=== PATIENT | female | born 1960 | race Hispanic/Latino ===

== ENCOUNTER 2017-04-25 19:35 | Emergency (ER) | payer MEDICARE ==
[2017-04-25 20:02] LABS: Basophils % (Auto) 0.2 % (0.0-1.8); Eosinophils % (Auto) 3.3 % (0.0-4.3); Hematocrit 35.8 % (30.3-42.9); Hemoglobin 12.1 gm/dl (10.1-14.3); Mean Corpuscular HGB Conc 34 % (30-34); Mean Corpuscular Hemoglobin 30 pg (28-32); Mean Corpuscular Volume 87 fl (79-97); Platelet Count 326 K/mm3 (140-440); Red Cell Distribution Width 14.7 % (13.2-15.2); White Blood Count 6.6 K/mm3 (4.5-11.0)
[2017-04-25 20:22] LABS: Anion Gap 18 mmol/L; BUN/Creatinine Ratio 27; Blood Urea Nitrogen 19 mg/dL (7-17); Calcium 8.9 mg/dL (8.4-10.2); Carbon Dioxide 23 mmol/L (22-30); Glucose 281 mg/dL (65-100); Potassium 4.2 mmol/L (3.6-5.0); Sodium 139 mmol/L (137-145)
[2017-04-26] MEDS ORDERED: PERCOCET 5/325 PO PRN (07:22)
[2017-04-26] MEDS ORDERED: PERCOCET 5/325 PO ONE (07:24)
--- NOTE | 2017-04-26 08:21 | XRay Report ---
ROUTINE CHEST, TWO VIEWS: HISTORY: Left sided chest pain. The trachea, heart, mediastinal contour, lung metzger and bony thorax are unremarkable. IMPRESSION: Unremarkable chest x-ray. No significant change since 02/28/15.
--- NOTE | 2017-04-26 08:22 | Emergency Department Report ---
ED Dizziness HPI - General Chief Complaint: Chest Pain Stated Complaint: CP Time Seen by Provider: 04/26/17 07:11 Source: patient, EMS, old records reviewed Mode of arrival: Wheelchair Limitations: No Limitations - History of Present Illness Initial Comments: 57-year-old female with a past medical history of COPD, diabetes, asthma, hypertension, schizophrenia, and elevated cholesterol presents to the Hospital complaining of continued left sided chest pain for the past 4 days. Pain is constant and stabbing and moderate in intensity. No aggravating or alleviating factors reported. Patient complains of mild shortness of breath and mild diaphoresis. Denies nausea, vomiting, Numbness, edema, or recent travel. Patient apparently was admitted at [facility] 4 days ago for the same symptoms and reports a negative stress test. Patient comes here because she still has pain and thinks she should be admitted until we found out was wrong with her. Previous medical record here reviewed and patient had a negative stress test here 02/28/2015 multiple other visits to the ED for mental health- related complaints Medical record from [facility] reviewed. Patient admitted on April 21 for nausea, headache with elevated glucose and occasional chest tightness with mild exertion. Endocrinology was consultative optimized insulin regimen. She had a CT head that was unremarkable. She had troponins negative 2, EKG with nonspecific findings not changed from previous studies and had an MPI stress test that was negative for infection and ischemia. - Related Data Home Medications Medication Instructions Recorded Confirmed Last Taken FLUoxetine HCL [PROzac] 40 mg PO QDAY 07/07/15 10/15/15 06/07/15 Gabapentin [Neurontin] 300 mg PO BID 07/07/15 10/15/15 06/07/15 Haloperidol Decanoate [Haldol 100 mg IM QMONTH 07/07/15 10/15/15 06/07/15 Decanoate] Insulin Glargine [Lantus VIAL] 15 units SQ QHS 07/07/15 10/15/15 06/07/15 Insulin Lispro Protamin/Lispro 8 units SQ TID 07/07/15 10/15/15 06/07/15 [HumaLOG Mix 50-50 Kwikpen] Losartan [Cozaar] 60 mg PO BID 07/07/15 10/15/15 06/07/15 Topiramate [Topamax] 200 mg PO BID 07/07/15 10/15/15 06/07/15 hydrOXYzine PAMOATE [Vistaril] 25 mg PO QDAY 07/07/15 10/15/15 06/07/15 Haldol 10 mg PO BID 10/15/15 10/15/15 Unknown Januvia 100 mg PO DAILY 10/15/15 10/15/15 Unknown Lipitor 40 mg PO HS 10/15/15 10/15/15 Unknown Temazepam 15 mg PO HS 10/15/15 10/15/15 Unknown Previous Rx's Medication Instructions Recorded Last Taken Type Ibuprofen [Motrin] 600 mg PO Q8H PRN #30 tablet 04/26/17 Unknown Rx traMADol [Ultram 50 MG tab] 50 mg PO Q6HR PRN #20 tablet 04/26/17 Unknown Rx Allergies Allergy/AdvReac Type Severity Reaction Status Date / Time ciprofloxacin [From Cipro] Allergy Rash Verified 04/25/17 19:43 ciprofloxacin HCl Allergy Rash Verified 04/25/17 19:43 [From Cipro] erythromycin base Allergy Rash Verified 04/25/17 19:43 [Erythromycin Base] lithium [Eyota] Allergy Headache Verified 04/25/17 19:43 nitrofurantoin Allergy Hives Verified 04/25/17 19:43 macrocrystalline [From Macrodantin] sulfamethoxazole Allergy Hives Verified 04/25/17 19:43 [From Bactrim] trimethoprim [From Bactrim] Allergy Hives Verified 04/25/17 19:43 orange juice AdvReac MOUTH SORES Verified 04/25/17 19:43 pineapple AdvReac MOUTH SORES Verified 04/25/17 19:43 mushrooms Allergy Swelling Uncoded 07/06/15 23:47 ED Review of Systems ROS: Stated complaint: CP Other details as noted in HPI Comment: All other systems reviewed and negative Other: Constitutional: No fevers chills Eyes: No eye pain visual changes ENT: No ear pain or throat pain Neck: Denies pain Respiratory: Denies cough wheezing Cardiovascular: Denies palpitations, syncope GI: Denies abdominal pain, nausea, vomiting, diarrhea : Denies dysuria Musculoskeletal: Denies back pain, joint swelling Skin: Denies rash, lesions, erythema Neurologic: Denies headache, numbness, weakness Psychiatric: Denies suicidal ideation, hallucinations ED Past Medical Hx - Past Medical History Hx Hypertension: Yes Hx Diabetes: Yes Hx Psychiatric Treatment: Yes ([place], [place], etc.) Hx Asthma: Yes Hx COPD: Yes Additional medical history: HIGH CHOLESTEROL, paranoid schizophrenia, PTSD, psychosis. SLEEP APNEA - Surgical History Hx Cholecystectomy: Yes Hx Appendectomy: Yes Additional Surgical History: HYSTERECTOMY, knee surgery,TONSILLECTOMY - Social History Smoking Status: Never Smoker Substance Use Type: None - Medications Home Medications: Home Medications Medication Instructions Recorded Confirmed Last Taken Type FLUoxetine HCL [PROzac] 40 mg PO QDAY 07/07/15 10/15/15 06/07/15 History Gabapentin [Neurontin] 300 mg PO BID 07/07/15 10/15/15 06/07/15 History Haloperidol Decanoate [Haldol 100 mg IM QMONTH 07/07/15 10/15/15 06/07/15 History Decanoate] Insulin Glargine [Lantus VIAL] 15 units SQ QHS 07/07/15 10/15/15 06/07/15 History Insulin Lispro Protamin/Lispro 8 units SQ TID 07/07/15 10/15/15 06/07/15 History [HumaLOG Mix 50-50 Kwikpen] Losartan [Cozaar] 60 mg PO BID 07/07/15 10/15/15 06/07/15 History Topiramate [Topamax] 200 mg PO BID 07/07/15 10/15/15 06/07/15 History hydrOXYzine PAMOATE [Vistaril] 25 mg PO QDAY 07/07/15 10/15/15 06/07/15 History Haldol 10 mg PO BID 10/15/15 10/15/15 Unknown History Januvia 100 mg PO DAILY 10/15/15 10/15/15 Unknown History Lipitor 40 mg PO HS 10/15/15 10/15/15 Unknown History Temazepam 15 mg PO HS 10/15/15 10/15/15 Unknown History Ibuprofen [Motrin] 600 mg PO Q8H PRN #30 tablet 04/26/17 Unknown Rx traMADol [Ultram 50 MG tab] 50 mg PO Q6HR PRN #20 tablet 04/26/17 Unknown Rx ED Physical Exam - General Limitations: No Limitations - Other Other exam information: General: No limitations, patient is alert in no acute distress Head exam: Atraumatic, normocephalic Eyes exam: Normal appearance ENT: Moist mucous membrane, normal oropharynx Neck exam: Normal inspection, full range of motion, no meningismus nontender Respiratory exam: Clear to auscultation bilateral, no wheezes, rales, crackles Cardiovascular: Normal rate and rhythm, normal heart sounds. Mild left-sided chest wall tenderness Abdomen: Soft, nondistended, and nontender, with normal bowel sounds, no rebound, or guarding Extremity: Full range of motion normal inspection no deformity, no calf tenderness or edema Back: Normal Inspection, full range of motion, no tenderness Neurologic: Alert, oriented x3, cranial nerves intact, no motor or sensory deficit Psychiatric: normal affect, normal mood Skin: Warm, dry, intact ED Course Vital Signs 04/25/17 04/26/17 04/26/17 19:43 01:48 06:00 Temperature 98.0 F 98.4 F Pulse Rate 70 65 58 L Respiratory 18 14 12 Rate Blood Pressure 132/90 103/59 111/65 Blood Pressure [Left] O2 Sat by Pulse 97 96 100 Oximetry 04/26/17 04/26/17 06:02 07:53 Temperature 97.7 F Pulse Rate 55 L Respiratory 15 16 Rate Blood Pressure Blood Pressure 114/60 [Left] O2 Sat by Pulse 99 Oximetry ED Medical Decision Making - Lab Data Result diagrams: 04/25/17 19:50 04/25/17 19:50 Lab Results 04/25/17 04/25/17 04/25/17 Range/Units 19:50 19:50 23:04 WBC 6.6 (4.5-11.0) K/mm3 RBC 4.10 (3.65-5.03) M/mm3 Hgb 12.1 (10.1-14.3) gm/dl Hct 35.8 (30.3-42.9) % MCV 87 (79-97) fl MCH 30 (28-32) pg MCHC 34 (30-34) % RDW 14.7 (13.2-15.2) % Plt Count 326 (140-440) K/mm3 Lymph % (Auto) 48.4 H (13.4-35.0) % [place] % (Auto) 6.4 (0.0-7.3) % Eos % (Auto) 3.3 (0.0-4.3) % Baso % (Auto) 0.2 (0.0-1.8) % Lymph # 3.2 (1.2-5.4) K/mm3 [place] # 0.4 (0.0-0.8) K/mm3 Eos # 0.2 (0.0-0.4) K/mm3 Baso # 0.0 (0.0-0.1) K/mm3 Seg Neutrophils % 41.7 (40.0-70.0) % Seg Neutrophils # 2.8 (1.8-7.7) K/mm3 D-Dimer (0-234) ng/mlDDU Sodium 139 (137-145) mmol/L Potassium 4.2 (3.6-5.0) mmol/L Chloride 102.0 (98-107) mmol/L Carbon Dioxide 23 (22-30) mmol/L Anion Gap 18 mmol/L BUN 19 H (7-17) mg/dL Creatinine 0.7 (0.7-1.2) mg/dL Estimated GFR > 60 ml/min BUN/Creatinine Ratio 27 % Glucose 281 H (65-100) mg/dL Calcium 8.9 (8.4-10.2) mg/dL Troponin T < 0.010 < 0.010 (0.00-0.029) ng/mL 04/26/17 04/26/17 Range/Units 01:52 07:31 WBC (4.5-11.0) K/mm3 RBC (3.65-5.03) M/mm3 Hgb (10.1-14.3) gm/dl Hct (30.3-42.9) % MCV (79-97) fl MCH (28-32) pg MCHC (30-34) % RDW (13.2-15.2) % Plt Count (140-440) K/mm3 Lymph % (Auto) (13.4-35.0) % [place] % (Auto) (0.0-7.3) % Eos % (Auto) (0.0-4.3) % Baso % (Auto) (0.0-1.8) % Lymph # (1.2-5.4) K/mm3 [place] # (0.0-0.8) K/mm3 Eos # (0.0-0.4) K/mm3 Baso # (0.0-0.1) K/mm3 Seg Neutrophils % (40.0-70.0) % Seg Neutrophils # (1.8-7.7) K/mm3 D-Dimer < 135.0 (0-234) ng/mlDDU Sodium (137-145) mmol/L Potassium (3.6-5.0) mmol/L Chloride (98-107) mmol/L Carbon Dioxide (22-30) mmol/L Anion Gap mmol/L BUN (7-17) mg/dL Creatinine (0.7-1.2) mg/dL Estimated GFR ml/min BUN/Creatinine Ratio % Glucose (65-100) mg/dL Calcium (8.4-10.2) mg/dL Troponin T < 0.010 (0.00-0.029) ng/mL - EKG Data -: EKG Interpreted by [facility] EKG shows normal: sinus rhythm, axis (4), QRS complexes (87), ST-T waves (no stemi/t inv) Rate: normal (61) - EKG Data When compared to previous EKG there are: no significant change 04/26/17 08:22 The patient had 2 repeat EKGs are unchanged and without acute abnormalities - Radiology Data Radiology results: report reviewed Chest x-ray read by radiologist: No acute finding - Medical Decision Making Patient will be discharged home. Troponins negative 3. EKG unchanged from previous. Her pain is atypical. Patient had a negative stress test this week. D-dimer negative and chest x-ray unremarkable. She will be treated symptomatically for muscle skeletal pain - Differential Diagnosis NH, PE, costochondritis, atypical chest pain Critical Care Time: No Critical care attestation.: If time is entered above; I have spent that time in minutes in the direct care of this critically ill patient, excluding procedure time. ED Disposition Clinical Impression: Atypical chest pain, Diabetes Disposition: DC-01 TO HOME OR SELFCARE Is pt being admited?: No Does the pt Need Aspirin: No Condition: Stable Instructions: Diabetes Mellitus Type 2 in Adults (ED), Chest Pain (ED) Additional Instructions: Take the the medication as prescribed. Return if symptoms worsen. Follow up with your doctor for further management Prescriptions: Ibuprofen [Motrin] 600 mg PO Q8H PRN #30 tablet PRN Reason: Pain traMADol [Ultram 50 MG tab] 50 mg PO Q6HR PRN #20 tablet PRN Reason: Pain Referrals: ZHEN ARCHIBALD MD [Primary Care Provider] - 3-5 Days Time of Disposition: 09:02
[2017-04-26 11:05] VITALS: BP 130/73
== END 2017-04-26 09:41 | disposition home or self-care (01) ==
LOC: ED 19:35
DX: R07.89 Other chest pain (principal); E11.9 Type 2 diabetes mellitus without complications; I10 Essential (primary) hypertension; J44.9 Chronic obstructive pulmonary disease, unspecified; E78.00 Pure hypercholesterolemia, unspecified; F20.0 Paranoid schizophrenia; F43.10 Post-traumatic stress disorder, unspecified; Z90.49 Acquired absence of other specified parts of digestive tract; Z90.89 Acquired absence of other organs; Z90.710 Acquired absence of both cervix and uterus; Z88.1 Allergy status to other antibiotic agents; Z88.8 Allergy status to other drugs, medicaments and biological substances
CPT/HCPCS: 36415; 71020; 80048; 84484; 85025; 85379; 93005; 93010

== ENCOUNTER 2017-09-19 11:02 | Emergency (ER) | payer MEDICARE ==
[2017-09-19 11:46] VITALS: BP 128/65
--- NOTE | 2017-09-19 12:09 | XRay Report ---
ROUTINE CHEST, TWO VIEWS: HISTORY: Cough. The trachea, heart, mediastinal contour, lung metzger and bony thorax are unremarkable. No change since 04/26/17. IMPRESSION: Unremarkable chest x-ray.
--- NOTE | 2017-09-19 12:58 | Emergency Department Report ---
Minor Respiratory - HPI Chief Complaint: Upper Respiratory Infection Stated Complaint: POSS BRONCHITIS Time Seen by Provider: 09/19/17 12:36 Duration: 4 Days Pain Location: Chest Severity: moderate Minor Respiratory: Yes Able to Tolerate Fluids, Yes Cough (patient has a deep cough that is productive of yellow sputum), Yes Chest Pain, No Rhinorrhea, No Sore Throat, No Ear Pain, No Sick Contacts, No Hemoptysis, No Shortness of Breath, No Fever ED Review of Systems ROS: Stated complaint: POSS BRONCHITIS Other details as noted in HPI Comment: All other systems reviewed and negative ED Past Medical Hx - Past Medical History Hx Hypertension: Yes Hx Diabetes: Yes Hx Psychiatric Treatment: Yes ([place], [place], etc.) Hx Asthma: Yes Hx COPD: Yes Additional medical history: HIGH CHOLESTEROL, paranoid schizophrenia, PTSD, psychosis. SLEEP APNEA - Surgical History Hx Cholecystectomy: Yes Hx Appendectomy: Yes Additional Surgical History: HYSTERECTOMY, knee surgery,TONSILLECTOMY - Social History Smoking Status: Never Smoker Substance Use Type: None - Medications Home Medications: Home Medications Medication Instructions Recorded Confirmed Last Taken Type FLUoxetine HCL [PROzac] 40 mg PO QDAY 07/07/15 10/15/15 06/07/15 History Gabapentin [Neurontin] 300 mg PO BID 07/07/15 10/15/15 06/07/15 History Haloperidol Decanoate [Haldol 100 mg IM QMONTH 07/07/15 10/15/15 06/07/15 History Decanoate] Insulin Glargine [Lantus VIAL] 15 units SQ QHS 07/07/15 10/15/15 06/07/15 History Insulin Lispro Protamin/Lispro 8 units SQ TID 07/07/15 10/15/15 06/07/15 History [HumaLOG Mix 50-50 Kwikpen] Losartan [Cozaar] 60 mg PO BID 07/07/15 10/15/15 06/07/15 History Topiramate [Topamax] 200 mg PO BID 07/07/15 10/15/15 06/07/15 History hydrOXYzine PAMOATE [Vistaril] 25 mg PO QDAY 07/07/15 10/15/15 06/07/15 History Haldol 10 mg PO BID 10/15/15 10/15/15 Unknown History Januvia 100 mg PO DAILY 10/15/15 10/15/15 Unknown History Lipitor 40 mg PO HS 10/15/15 10/15/15 Unknown History Temazepam 15 mg PO HS 10/15/15 10/15/15 Unknown History Ibuprofen [Motrin] 600 mg PO Q8H PRN #30 tablet 04/26/17 Unknown Rx traMADol [Ultram 50 MG tab] 50 mg PO Q6HR PRN #20 tablet 04/26/17 Unknown Rx ALBUTEROL Inhaler [ProAir HFA 2 puff IH QID PRN #1 inhalation 09/19/17 Unknown Rx Inhaler] Azithromycin [Zithromax Z-TIFFANIE] 250 mg PO DAILY #6 tablet 09/19/17 Unknown Rx Benzonatate [Tessalon Perle] 100 mg PO TID #12 capsule 09/19/17 Unknown Rx HYDROcodone/APAP 5-325 [[place] 1 each PO Q4HR PRN #12 tablet 09/19/17 Unknown Rx 5/325] Minor Respiratory Exam - Exam General: Vital signs noted. No distress. Alert and acting appropriately. HEENT: Yes Moist Mucous Membranes, No Pharyngeal Erythema, No Pharyngeal Exudates, No Rhinorrhea, No Conjuctival Injection, No Frontal Tenderness, No Maxillary Tenderness Ear: Neither TM Bulge, Neither TM Erythema, Neither EAC Pain, Neither EAC Discharge Neck: Yes Supple, No Adenopathy Lungs: Yes Good Air Exchange, Yes Cough, No Wheezes, No Ronchi, No Stridor, No Labored Respirations, No Retractions, No Use of Accessory Muscles, No Other Abnormal Lung Sounds Heart: Yes Regular, No Murmur Abdomen: Yes Normal Bowel Sounds, No Tenderness, No Peritoneal Signs Skin: No Rash, No Edema Neurologic: Alert and oriented, no deficits. Musculoskeletal: Unremarkable. ED Course Vital Signs 09/19/17 11:42 Temperature 98.3 F Pulse Rate 90 Respiratory 16 Rate Blood Pressure 128/65 O2 Sat by Pulse 95 Oximetry ED Medical Decision Making - Radiology Data Chest x-ray is within normal limits Critical care attestation.: If time is entered above; I have spent that time in minutes in the direct care of this critically ill patient, excluding procedure time. ED Disposition Clinical Impression: Acute bronchitis Qualifiers: Bronchitis organism: unspecified organism Qualified Code(s): J20.9 - Acute bronchitis, unspecified Disposition: DC-01 TO HOME OR SELFCARE Is pt being admited?: No Does the pt Need Aspirin: No Condition: Stable Instructions: Acute Bronchitis (ED) Prescriptions: ALBUTEROL Inhaler [ProAir HFA Inhaler] 2 puff IH QID PRN #1 inhalation PRN Reason: Shortness Of Breath Azithromycin [Zithromax Z-TIFFANIE] 250 mg PO DAILY #6 tablet Benzonatate [Tessalon Perle] 100 mg PO TID #12 capsule HYDROcodone/APAP 5-325 [[place] 5/325] 1 each PO Q4HR PRN #12 tablet PRN Reason: Pain Referrals: PRIMARY CARE, [Primary Care Provider] - 3-5 Days
== END 2017-09-19 13:03 | disposition home or self-care (01) ==
LOC: ED 11:02
DX: J20.9 Acute bronchitis, unspecified (principal); J44.0 Chronic obstructive pulmonary disease with (acute) lower respiratory infection; I10 Essential (primary) hypertension; E11.9 Type 2 diabetes mellitus without complications; F20.0 Paranoid schizophrenia; F43.10 Post-traumatic stress disorder, unspecified; E78.00 Pure hypercholesterolemia, unspecified; Z90.49 Acquired absence of other specified parts of digestive tract; Z90.89 Acquired absence of other organs; Z90.710 Acquired absence of both cervix and uterus; Z79.899 Other long term (current) drug therapy; Z88.8 Allergy status to other drugs, medicaments and biological substances
CPT/HCPCS: 71046

== ENCOUNTER 2017-11-30 09:52 | Emergency (ER) | payer MEDICARE ==
--- NOTE | 2017-11-30 10:30 | Emergency Department Report ---
HPI - General Chief Complaint: Fall Time Seen by Provider: 11/30/17 10:06 - HPI HPI: 57-year-old female presents to the emergency department via EMS from home after she fell, hit her head, and got knocked out. Patient says that she was leaning over to try and clean up serial floor when she fell backwards. She says that she did lose consciousness and that her roommate found her and called EMS. She complains of a headache, neck pain, left ankle pain and right hip pain. She has a history of diabetes and was found to have a blood sugar of 370 in the ambulance. She did not take anything and did not receive anything for her symptoms prior to presentation. Patient has a psychiatric history of bipolar disorder and depression. She denies having a primary care physician. ED Past Medical Hx - Past Medical History Hx Hypertension: Yes Hx Diabetes: Yes Hx Psychiatric Treatment: Yes ([place], [place], etc.) Hx Asthma: Yes Hx COPD: Yes Additional medical history: HIGH CHOLESTEROL, paranoid schizophrenia, PTSD, psychosis. SLEEP APNEA - Surgical History Hx Cholecystectomy: Yes Hx Appendectomy: Yes Additional Surgical History: HYSTERECTOMY, knee surgery,TONSILLECTOMY - Social History Smoking Status: Never Smoker Substance Use Type: None - Medications Home Medications: Home Medications Medication Instructions Recorded Confirmed Last Taken Type FLUoxetine HCL [PROzac] 40 mg PO QDAY 07/07/15 10/15/15 06/07/15 History Gabapentin [Neurontin] 300 mg PO BID 07/07/15 10/15/15 06/07/15 History Haloperidol Decanoate [Haldol 100 mg IM QMONTH 07/07/15 10/15/15 06/07/15 History Decanoate] Insulin Glargine [Lantus VIAL] 15 units SQ QHS 07/07/15 10/15/15 06/07/15 History Insulin Lispro Protamin/Lispro 8 units SQ TID 07/07/15 10/15/15 06/07/15 History [HumaLOG Mix 50-50 Kwikpen] Losartan [Cozaar] 60 mg PO BID 07/07/15 10/15/15 06/07/15 History Topiramate [Topamax] 200 mg PO BID 07/07/15 10/15/15 06/07/15 History hydrOXYzine PAMOATE [Vistaril] 25 mg PO QDAY 07/07/15 10/15/15 06/07/15 History Haldol 10 mg PO BID 10/15/15 10/15/15 Unknown History Januvia 100 mg PO DAILY 10/15/15 10/15/15 Unknown History Lipitor 40 mg PO HS 10/15/15 10/15/15 Unknown History Temazepam 15 mg PO HS 10/15/15 10/15/15 Unknown History Ibuprofen [Motrin] 600 mg PO Q8H PRN #30 tablet 04/26/17 Unknown Rx traMADol [Ultram 50 MG tab] 50 mg PO Q6HR PRN #20 tablet 04/26/17 Unknown Rx ALBUTEROL Inhaler [ProAir HFA 2 puff IH QID PRN #1 inhalation 09/19/17 Unknown Rx Inhaler] Azithromycin [Zithromax Z-TIFFANIE] 250 mg PO DAILY #6 tablet 09/19/17 Unknown Rx Benzonatate [Tessalon Perle] 100 mg PO TID #12 capsule 09/19/17 Unknown Rx HYDROcodone/APAP 5-325 [[place] 1 each PO Q4HR PRN #12 tablet 09/19/17 Unknown Rx 5/325] ED Review of Systems ROS: Stated complaint: RIGHT HIP/ LEFT ANKLE INJURY Other details as noted in HPI Comment: All other systems reviewed and negative Constitutional: denies: chills, fever Eyes: denies: eye pain, eye discharge, vision change ENT: denies: ear pain, throat pain Respiratory: denies: cough, shortness of breath, wheezing Cardiovascular: denies: chest pain, palpitations Gastrointestinal: denies: abdominal pain, nausea, diarrhea Genitourinary: denies: urgency, dysuria, discharge Musculoskeletal: arthralgia, myalgia. denies: back pain Skin: denies: rash, lesions Neurological: headache. denies: numbness Physical Exam - Physical Exam Vital Signs: Vital Signs 11/30/17 10:09 Temperature 98.4 F Pulse Rate 74 Respiratory 16 Rate Blood Pressure 128/80 O2 Sat by Pulse 98 Oximetry ED Course Vital Signs 11/30/17 10:09 Temperature 98.4 F Pulse Rate 74 Respiratory 16 Rate Blood Pressure 128/80 O2 Sat by Pulse 98 Oximetry ED Medical Decision Making - Lab Data Result diagrams: 11/30/17 10:36 11/30/17 10:36 - EKG Data -: EKG Interpreted by Me EKG shows normal: sinus rhythm, axis, intervals, QRS complexes, ST-T waves Rate: normal - EKG Data When compared to previous EKG there are: previous EKG unavailable Interpretation: normal EKG Critical care attestation.: If time is entered above; I have spent that time in minutes in the direct care of this critically ill patient, excluding procedure time. ED Disposition Clinical Impression: Hyperglycemia without ketosis, Right hip pain, Hypokalemia Fall Qualifiers: Encounter type: initial encounter Qualified Code(s): W19.XXXA - Unspecified fall, initial encounter Left ankle pain Qualifiers: Chronicity: acute Qualified Code(s): M25.572 - Pain in left ankle and joints of left foot Disposition: TO HOME OR SELFCARE Is pt being admited?: No Condition: Stable Instructions: Arthralgia (ED), Fall Prevention (ED), Hypokalemia (ED), Diabetic Hyperglycemia (ED) Additional Instructions: Please follow up with a primary care physician in the next few days and I have given you multiple names as referrals. I have also given you a referral for a local orthopedist, Dr. Childress, to follow up regarding your ankle and hip pains. Return to the emergency Department with any worsening of your symptoms or any acute distress. Check her blood sugar regularly. Take your diabetes medications. Try and stay away from foods that are high in sugar, carbohydrates and starches. Keep a blood sugar log. Referrals: PRIMARY CAREMD [Primary Care Provider] - 3-5 Days YFN CHILDRESS MD [Staff Physician] - 3-5 Days ENRIQUE ARAGON MD [Staff Physician] - 3-5 Days MARIYA HORNE MD [Staff Physician] - 3-5 Days [facility] [Outside] - 3-5 Days Time of Disposition: 13:36
[2017-11-30 10:50] LABS: Basophils % (Auto) 0.3 % (0.0-1.8); Eosinophils # (Auto) 0.1 K/mm3 (0.0-0.4); Eosinophils % (Auto) 1.8 % (0.0-4.3); Hematocrit 40.4 % (30.3-42.9); Hemoglobin 13.7 gm/dl (10.1-14.3); Lymphocytes # (Auto) 2.1 K/mm3 (1.2-5.4); Lymphocytes % (Auto) 32.1 % (13.4-35.0); Mean Corpuscular HGB Conc 34 % (30-34); Mean Corpuscular Hemoglobin 30 pg (28-32); Mean Corpuscular Volume 89 fl (79-97); Monocytes # (Auto) 0.4 K/mm3 (0.0-0.8); Monocytes % (Auto) 5.9 % (0.0-7.3); Platelet Count 266 K/mm3 (140-440); Red Blood Count 4.55 M/mm3 (3.65-5.03); Red Cell Distribution Width 13.9 % (13.2-15.2)
[2017-11-30 11:09] LABS: BUN/Creatinine Ratio 37; Blood Urea Nitrogen 22 mg/dL (7-17); Calcium 9.3 mg/dL (8.4-10.2); Hemolysis Index 10
--- NOTE | 2017-11-30 11:17 | XRay Report ---
LEFT ANKLE RADIOGRAPHS INDICATION: Fall. COMPARISON: None similar. FINDINGS: AP, lateral and oblique left ankle radiographs demonstrate intact mortise, malleoli and talar dome contour. Mild to moderate degenerative changes, including spurring both anteriorly and posteriorly best noted on the lateral view. Small to moderate plantar calcaneal spur as well. Mild diffuse ankle soft tissue swelling suspected, medial more than lateral. CONCLUSION: Left ankle degenerative changes and possible soft tissue swelling without acute bony abnormality, as described. Please correlate. Thank you for the opportunity to participate in this patient's care.
--- NOTE | 2017-11-30 11:18 | XRay Report ---
PORTABLE CHEST INDICATION: Fall. COMPARISON: 09/19/2017 FINDINGS: Portable, frontal chest radiograph again demonstrates normal cardiomediastinal silhouette. Clear lungs. Few bony degenerative changes. CONCLUSION: No acute disease, stable. Thank you for the opportunity to participate in this patient's care.
--- NOTE | 2017-11-30 11:20 | XRay Report ---
RIGHT HIP RADIOGRAPHS INDICATION: Fall. COMPARISON: None similar. FINDINGS: An AP pelvic radiograph with frog-leg projection of the right hip demonstrate intact articulation. Frontal view partly rotated. Imaged bilateral SI and hip joints appear intact. Nonobstructive bowel gas pattern with few air containing small bowel loops in the left lower quadrant measuring up to 1.7 cm caliber. CONCLUSION: No acute right hip radiographic abnormality. Thank you for the opportunity to participate in this patient's care.
[2017-11-30] MEDS ORDERED: K-DUR PO NR (11:24)
[2017-11-30] MEDS ORDERED: NACL 0.9% 1000 ML 1,000 ML IV ONE (11:28)
[2017-11-30] MEDS ORDERED: HumuLIN R IV ONE (11:28)
--- NOTE | 2017-11-30 11:51 | Cat Scan Report ---
CT HEAD WITHOUT CONTRAST INDICATION: Fall. COMPARISON: 07/21/2014. FINDINGS: Noncontrast head CT demonstrates normal ventricles and sulci without acute or recent infarct, hemorrhage, mass effect or midline shift. No abnormal extra-axial fluid collections. Posterior fossa structures and basilar cisterns appear within normal limits. Symmetric eye globes. Mild right maxillary sinus mucosal thickening laterally partially imaged. Slight ethmoid sinusitis. Hypoplastic bilateral frontal sinuses. Clear remainder imaged paranasal sinuses and mastoid air cells. Rightward nasal septal bowing again noted. Hyperostosis frontalis interna. Small radiopaque dental fillings. CONCLUSION: No acute intracranial CT abnormality with slight sinusitis, as described. Thank you for the opportunity to participate in this patient's care.
--- NOTE | 2017-11-30 12:09 | Cat Scan Report ---
CT CERVICAL SPINE WITHOUT CONTRAST INDICATION: Fall. COMPARISON: None similar. FINDINGS: Noncontrast axial, sagittal and coronal CT reconstructions through the cervical spine demonstrate right more than left maxillary sinus mucosal thickening inferiorly. Some dental disease/periapical cysts. Few radiopaque dental materials create streak artifact, limiting exam. Assessment of spinal canal itself also compromised from C5 inferiorly due to low shoulder soft tissues. Intact craniocervical articulation, dens, prevertebral soft tissues and airway. Normal vertebral body stature. Some tilt noted, presumed positional. Mild C6-C7 disc narrowing and mild spurring. No large disc herniation or cord compression though suspected. Preserved airway. Normal thyroid. Asymmetric slight right upper lobe haziness/groundglass on axial image 85, series 2, amongst others. CONCLUSION: No acute cervical spine CT abnormality with mild lower cervical degenerative changes, sinusitis and dental disease incidentally noted, as described. Please correlate. Thank you for the opportunity to participate in this patient's care.
[2017-11-30 14:14] VITALS: BP 131/74
== END 2017-11-30 14:14 | disposition home or self-care (01) ==
LOC: ED 09:52
DX: E87.6 Hypokalemia (principal); E11.65 Type 2 diabetes mellitus with hyperglycemia; R51 Headache; M54.2 Cervicalgia; M25.572 Pain in left ankle and joints of left foot; M25.551 Pain in right hip; I10 Essential (primary) hypertension; J44.9 Chronic obstructive pulmonary disease, unspecified; E78.00 Pure hypercholesterolemia, unspecified; F43.10 Post-traumatic stress disorder, unspecified; F20.0 Paranoid schizophrenia; Z90.710 Acquired absence of both cervix and uterus; Z90.49 Acquired absence of other specified parts of digestive tract; Z90.89 Acquired absence of other organs; Z98.890 Other specified postprocedural states; Z79.899 Other long term (current) drug therapy; Z88.1 Allergy status to other antibiotic agents; Z88.2 Allergy status to sulfonamides; Z88.8 Allergy status to other drugs, medicaments and biological substances; W19.XXXA Unspecified fall, initial encounter; X58.XXXA Exposure to other specified factors, initial encounter; Y93.E5 Activity, floor mopping and cleaning; Y99.8 Other external cause status; Y92.019 Unspecified place in single-family (private) house as the place of occurrence of the external cause
CPT/HCPCS: 36415; 70450; 71045; 72125; 73502; 73610; 80048; 82550; 82805; 82962; 84484; 85025; 93005; 93010; 96361; 96374; 99285; G0480; J7030; 80320; J1815

== ENCOUNTER 2018-05-16 01:49 | Emergency (ER) | payer MEDICARE ==
[2018-05-16 01:59] VITALS: BP 132/76
[2018-05-16] MEDS ORDERED: HumuLIN R IV ONE (02:21)
[2018-05-16] MEDS ORDERED: NACL 0.9% 1000 ML 1,000 ML IV ONE (02:21)
[2018-05-16] MEDS ORDERED: ZOFRAN IV ONE (02:21)
--- NOTE | 2018-05-16 02:24 | Emergency Department Report ---
ED General Adult HPI - General Chief complaint: Hyperglycemia Stated complaint: HIGH BLOOD GLUCOSE Time Seen by Provider: 05/16/18 02:17 Source: patient Mode of arrival: Ambulatory Limitations: No Limitations - History of Present Illness Initial comments: Patient is 58-year-old female with history of diabetes type 2. Patient presented to the ER stating that she is been having trouble controlling her blood sugar. She also stated that she is being going to the bathroom a lot and she is nauseated also. Patient stated that she saw her primary care physician today and he is planning to take histamine and try Glucophage and glipizide. Patient denied any chest pain, shortness of breath, abdominal present, diarrhea, weakness numbness or tingling sensation. - Related Data Home Medications Medication Instructions Recorded Confirmed Last Taken FLUoxetine HCL [PROzac] 40 mg PO QDAY 07/07/15 10/15/15 06/07/15 Gabapentin [Neurontin] 300 mg PO BID 07/07/15 10/15/15 06/07/15 Haloperidol Decanoate [Haldol 100 mg IM QMONTH 07/07/15 10/15/15 06/07/15 Decanoate] Insulin Glargine [Lantus VIAL] 15 units SQ QHS 07/07/15 10/15/15 06/07/15 Insulin Lispro Protamin/Lispro 8 units SQ TID 07/07/15 10/15/15 06/07/15 [HumaLOG Mix 50-50 Kwikpen] Losartan [Cozaar] 60 mg PO BID 07/07/15 10/15/15 06/07/15 Topiramate [Topamax] 200 mg PO BID 07/07/15 10/15/15 06/07/15 hydrOXYzine PAMOATE [Vistaril] 25 mg PO QDAY 07/07/15 10/15/15 06/07/15 Haldol 10 mg PO BID 10/15/15 10/15/15 Unknown Januvia 100 mg PO DAILY 10/15/15 10/15/15 Unknown Lipitor 40 mg PO HS 10/15/15 10/15/15 Unknown Temazepam 15 mg PO HS 10/15/15 10/15/15 Unknown Previous Rx's Medication Instructions Recorded Last Taken Type Ibuprofen [Motrin] 600 mg PO Q8H PRN #30 tablet 04/26/17 Unknown Rx traMADol [Ultram 50 MG tab] 50 mg PO Q6HR PRN #20 tablet 04/26/17 Unknown Rx ALBUTEROL Inhaler (OR & NICU) 2 puff IH QID PRN #1 inhalation 09/19/17 Unknown Rx [ProAir HFA Inhaler] Azithromycin [Zithromax Z-TIFFANIE] 250 mg PO DAILY #6 tablet 09/19/17 Unknown Rx Benzonatate [Tessalon Perle] 100 mg PO TID #12 capsule 09/19/17 Unknown Rx HYDROcodone/APAP 5-325 [[place] 1 each PO Q4HR PRN #12 tablet 09/19/17 Unknown Rx 5/325] Ondansetron [Zofran Odt] 4 mg PO Q8HR PRN #14 tab.rapdis 05/16/18 Unknown Rx cephALEXin [Keflex] 500 mg PO Q8HR #28 cap 05/16/18 Unknown Rx Allergies Allergy/AdvReac Type Severity Reaction Status Date / Time ciprofloxacin HCl Allergy Rash Verified 09/19/17 11:42 [From Cipro] erythromycin base Allergy Rash Verified 09/19/17 11:42 [Erythromycin Base] lithium [Delta] Allergy Headache Verified 09/19/17 11:42 nitrofurantoin Allergy Hives Verified 09/19/17 11:42 macrocrystalline [From Macrodantin] sulfamethoxazole Allergy Hives Verified 09/19/17 11:42 [From Bactrim] trimethoprim [From Bactrim] Allergy Hives Verified 09/19/17 11:42 orange juice AdvReac MOUTH SORES Verified 09/19/17 11:42 pineapple AdvReac MOUTH SORES Verified 09/19/17 11:42 mushrooms Allergy Swelling Uncoded 09/19/17 11:42 ED Review of Systems ROS: Stated complaint: HIGH BLOOD GLUCOSE Other details as noted in HPI Comment: All other systems reviewed and negative Constitutional: denies: chills, fever Respiratory: denies: cough, orthopnea, shortness of breath, SOB with exertion, SOB at rest, wheezing Cardiovascular: denies: chest pain, palpitations, dyspnea on exertion Endocrine: increased thirst, increased urine Gastrointestinal: nausea. denies: abdominal pain, vomiting, diarrhea, constipat ion, hematemesis, melena, hematochezia Musculoskeletal: denies: back pain Neurological: denies: headache, weakness, numbness, paresthesias, confusion, abnormal gait ED Past Medical Hx - Past Medical History Previous Medical History?: Yes Hx Hypertension: Yes Hx Diabetes: Yes Hx Psychiatric Treatment: Yes ([place], [place], etc.) Hx Asthma: Yes Hx COPD: Yes Additional medical history: HIGH CHOLESTEROL, paranoid schizophrenia, PTSD, psychosis. SLEEP APNEA - Surgical History Past Surgical History?: Yes Hx Cholecystectomy: Yes Hx Appendectomy: Yes Additional Surgical History: HYSTERECTOMY, knee surgery,TONSILLECTOMY - Social History Smoking Status: Never Smoker Substance Use Type: None - Medications Home Medications: Home Medications Medication Instructions Recorded Confirmed Last Taken Type FLUoxetine HCL [PROzac] 40 mg PO QDAY 07/07/15 10/15/15 06/07/15 History Gabapentin [Neurontin] 300 mg PO BID 07/07/15 10/15/15 06/07/15 History Haloperidol Decanoate [Haldol 100 mg IM QMONTH 07/07/15 10/15/15 06/07/15 History Decanoate] Insulin Glargine [Lantus VIAL] 15 units SQ QHS 07/07/15 10/15/15 06/07/15 History Insulin Lispro Protamin/Lispro 8 units SQ TID 07/07/15 10/15/15 06/07/15 History [HumaLOG Mix 50-50 Kwikpen] Losartan [Cozaar] 60 mg PO BID 07/07/15 10/15/15 06/07/15 History Topiramate [Topamax] 200 mg PO BID 07/07/15 10/15/15 06/07/15 History hydrOXYzine PAMOATE [Vistaril] 25 mg PO QDAY 07/07/15 10/15/15 06/07/15 History Haldol 10 mg PO BID 10/15/15 10/15/15 Unknown History Januvia 100 mg PO DAILY 10/15/15 10/15/15 Unknown History Lipitor 40 mg PO HS 10/15/15 10/15/15 Unknown History Temazepam 15 mg PO HS 10/15/15 10/15/15 Unknown History Ibuprofen [Motrin] 600 mg PO Q8H PRN #30 tablet 04/26/17 Unknown Rx traMADol [Ultram 50 MG tab] 50 mg PO Q6HR PRN #20 tablet 04/26/17 Unknown Rx ALBUTEROL Inhaler (OR & NICU) 2 puff IH QID PRN #1 inhalation 09/19/17 Unknown Rx [ProAir HFA Inhaler] Azithromycin [Zithromax Z-TIFFANIE] 250 mg PO DAILY #6 tablet 09/19/17 Unknown Rx Benzonatate [Tessalon Perle] 100 mg PO TID #12 capsule 09/19/17 Unknown Rx HYDROcodone/APAP 5-325 [[place] 1 each PO Q4HR PRN #12 tablet 09/19/17 Unknown Rx 5/325] Ondansetron [Zofran Odt] 4 mg PO Q8HR PRN #14 tab.rapdis 05/16/18 Unknown Rx cephALEXin [Keflex] 500 mg PO Q8HR #28 cap 05/16/18 Unknown Rx ED Physical Exam - General Limitations: No Limitations General appearance: alert, in no apparent distress - Head Head exam: Present: atraumatic, normocephalic, normal inspection - Eye Eye exam: Present: normal appearance - ENT ENT exam: Present: normal exam, normal orophraynx, mucous membranes moist - Neck Neck exam: Present: normal inspection, full ROM. Absent: tenderness, me ningismus, lymphadenopathy, thyromegaly - Respiratory Respiratory exam: Present: normal lung sounds bilaterally. Absent: respiratory distress, wheezes, rales, rhonchi, chest wall tenderness, accessory muscle use, decreased breath sounds, prolonged expiratory - Cardiovascular Cardiovascular Exam: Present: regular rate, normal rhythm, normal heart sounds - GI/Abdominal GI/Abdominal exam: Present: soft, normal bowel sounds. Absent: distended, tenderness, guarding, rebound, rigid, organomegaly, mass, bruit, pulsatile mass, hernia - Extremities Exam Extremities exam: Present: normal inspection, full ROM, normal capillary refill. Absent: pedal edema, calf tenderness - Back Exam Back exam: Present: normal inspection, full ROM. Absent: tenderness, CVA tenderness (R), CVA tenderness (L), muscle spasm, paraspinal tenderness, vertebral tenderness, rash noted - Neurological Exam Neurological exam: Present: alert, oriented X3, CN II-XII intact, normal gait, reflexes normal - Skin Skin exam: Present: warm, intact, normal color ED Course Vital Signs 01/16/19 01:56 Temperature 97.6 F Pulse Rate 68 Respiratory 18 Rate Blood Pressure 132/76 O2 Sat by Pulse 96 Oximetry ED Medical Decision Making - Lab Data Result diagrams: 05/16/18 02:14 05/16/18 02:14 - Medical Decision Making Patient blood glucose is 142 now. Patient does have a UTI. I will treat with c iprofloxacin 500 mg twice a day for 7 days I advised the patient to follow up with her primary care physician in the next 2-3 days. Critical care attestation.: If time is entered above; I have spent that time in minutes in the direct care of this critically ill patient, excluding procedure time. ED Disposition Clinical Impression: Hyperglycemia without ketosis, UTI (urinary tract infection) Disposition: - TO HOME OR SELFCARE Is pt being admited?: No Condition: Stable Instructions: Diabetic Hyperglycemia (ED), Urinary Tract Infection in Women (ED) Prescriptions: cephALEXin [Keflex] 500 mg PO Q8HR #28 cap Ondansetron [Zofran Odt] 4 mg PO Q8HR PRN #14 tab.rapdis PRN Reason: Nausea And Vomiting Referrals: PRIMARY CARE,MD [Primary Care Provider] - 3-5 Days
[2018-05-16 02:28] LABS: Basophils % (Auto) 0.5 % (0.0-1.8); Eosinophils # (Auto) 0.1 K/mm3 (0.0-0.4); Eosinophils % (Auto) 1.4 % (0.0-4.3); Hematocrit 38.1 % (30.3-42.9); Hemoglobin 12.8 gm/dl (10.1-14.3); Lymphocytes # (Auto) 4.1 K/mm3 (1.2-5.4); Lymphocytes % (Auto) 43.3 % (13.4-35.0); Mean Corpuscular HGB Conc 34 % (30-34); Mean Corpuscular Volume 89 fl (79-97); Monocytes # (Auto) 0.6 K/mm3 (0.0-0.8); Monocytes % (Auto) 6.1 % (0.0-7.3); Platelet Count 255 K/mm3 (140-440); Red Cell Distribution Width 13.2 % (13.2-15.2)
[2018-05-16 02:33] LABS: Bilirubin,Urine NEG (Negative); Blood,Urine NEG (Negative); Color,Urine Straw (Yellow); Mucus,Urine FEW /HPF; Protein,Urine <15 mg/dL mg/dL (Negative); Urobilinogen,Urine < 2.0 mg/dL (<2.0)
[2018-05-16 02:47] LABS: BUN/Creatinine Ratio 35; Blood Urea Nitrogen 28 mg/dL (7-17); Calcium 8.9 mg/dL (8.4-10.2); Hemolysis Index 28
== END 2018-05-16 05:28 | disposition home or self-care (01) ==
LOC: ED 01:49
DX: E11.65 Type 2 diabetes mellitus with hyperglycemia (principal); N39.0 Urinary tract infection, site not specified; I10 Essential (primary) hypertension; J44.9 Chronic obstructive pulmonary disease, unspecified; E78.00 Pure hypercholesterolemia, unspecified; F20.0 Paranoid schizophrenia; F43.10 Post-traumatic stress disorder, unspecified; G47.30 Sleep apnea, unspecified; Z90.49 Acquired absence of other specified parts of digestive tract; Z79.4 Long term (current) use of insulin; Z88.5 Allergy status to narcotic agent; Z88.1 Allergy status to other antibiotic agents; Z88.2 Allergy status to sulfonamides; Z91.018 Allergy to other foods; Z90.710 Acquired absence of both cervix and uterus
CPT/HCPCS: 36415; 80048; 81001; 82805; 82962; 85025; 96361; 96374; 96375; 99284; J2405; J7030; J1815

== ENCOUNTER 2018-10-27 01:42 | Emergency (ER) | payer MEDICARE ==
[2018-10-27] MEDS ORDERED: NACL 0.9% 1000 ML 2,000 ML IV ONE (02:55)
--- NOTE | 2018-10-27 02:57 | Event Note ---
Date: 10/27/18 57-year-old female, past history of asthma, COPD, diabetes hypertension, schizophrenia, sleep apnea, PTSD, presenting with painless nontraumatic h yperglycemia. Incidentally found to have insect bites. Patient is given a bath. Screening laboratory studies ordered. Permethrin ordered. Vital Signs 10/27/18 02:38 Temperature 97.7 F Pulse Rate 54 L Respiratory 18 Rate Blood Pressure 123/60 [Right] O2 Sat by Pulse 97 Oximetry Urine ordered.
[2018-10-27 03:09] LABS: Bilirubin,Urine NEG (Negative); Blood,Urine NEG (Negative); Color,Urine Straw (Yellow); Protein,Urine <15 mg/dL mg/dL (Negative); Urobilinogen,Urine < 2.0 mg/dL (<2.0)
[2018-10-27] MEDS ORDERED: ACTICIN TP ONE (03:45)
[2018-10-27 03:49] LABS: Hematocrit 36.2 % (30.3-42.9); Hemoglobin 12.2 gm/dl (10.1-14.3); Mean Corpuscular HGB Conc 34 % (30-34); Mean Corpuscular Volume 89 fl (79-97); Platelet Count 239 K/mm3 (140-440); Red Blood Count 4.06 M/mm3 (3.65-5.03)
[2018-10-27 03:50] LABS: BUN/Creatinine Ratio 35; Blood Urea Nitrogen 21 mg/dL (7-17); Hemolysis Index 3
[2018-10-27] MEDS ORDERED: HumuLIN R IV ONE (04:17)
--- NOTE | 2018-10-27 05:17 | Emergency Department Report ---
ED General Adult HPI - General Chief complaint: Hyperglycemia Stated complaint: HYPERGLYCEMIA Time Seen by Provider: 10/27/18 02:16 Source: patient, EMS (ems notes not available at time of chart dictation), RN notes reviewed, old records reviewed Mode of arrival: Wheelchair Limitations: No Limitations - History of Present Illness Initial comments: This is a 58-year-old female. Past medical history includes asthma, COPD, diabetes, hypertension. I have evaluated this patient in the past. The patient is brought to the hospital by emergency medical services for hyperglycemia. Patient reports compliance with her medications. She denies dietary indiscretions. She reports that her primary care doctor recently evaluated her for similar symptoms, gave her fluids and insulin in the office. The patient denies physical pain. She endorses polydipsia and polyuria. She denies headache, neck pain, chest pain, abdominal pain. The patient also states that she does have a rash on her lower extremities. She was found to have insects and bedbugs. She was not aware of this. -: Gradual Severity scale (0 -10): 0 Consistency: intermittent Improves with: medication - Related Data Home Medications Medication Instructions Recorded Confirmed Last Taken FLUoxetine HCL [PROzac] 40 mg PO QDAY 07/07/15 10/15/15 06/07/15 Gabapentin [Neurontin] 300 mg PO BID 07/07/15 10/15/15 06/07/15 Haloperidol Decanoate [Haldol 100 mg IM QMONTH 07/07/15 10/15/15 06/07/15 Decanoate] Insulin Glargine [Lantus VIAL] 15 units SQ QHS 07/07/15 10/15/15 06/07/15 Insulin Lispro Protamin/Lispro 8 units SQ TID 07/07/15 10/15/15 06/07/15 [HumaLOG Mix 50-50 Kwikpen] Losartan [Cozaar] 60 mg PO BID 07/07/15 10/15/15 06/07/15 Topiramate [Topamax] 200 mg PO BID 07/07/15 10/15/15 06/07/15 hydrOXYzine PAMOATE [Vistaril] 25 mg PO QDAY 07/07/15 10/15/15 06/07/15 Haldol 10 mg PO BID 06/16/16 06/16/16 Unknown Januvia 100 mg PO DAILY 10/15/15 10/15/15 Unknown Lipitor 40 mg PO HS 10/15/15 10/15/15 Unknown Temazepam 15 mg PO HS 10/15/15 10/15/15 Unknown Previous Rx's Medication Instructions Recorded Last Taken Type Ibuprofen [Motrin] 600 mg PO Q8H PRN #30 tablet 04/26/17 Unknown Rx traMADol [Ultram 50 MG tab] 50 mg PO Q6HR PRN #20 tablet 04/26/17 Unknown Rx ALBUTEROL Inhaler (OR & NICU) 2 puff IH QID PRN #1 inhalation 09/19/17 Unknown Rx [ProAir HFA Inhaler] Azithromycin [Zithromax Z-TIFFANIE] 250 mg PO DAILY #6 tablet 09/19/17 Unknown Rx Benzonatate [Tessalon Perle] 100 mg PO TID #12 capsule 09/19/17 Unknown Rx HYDROcodone/APAP 5-325 [[place] 1 each PO Q4HR PRN #12 tablet 09/19/17 Unknown Rx 5/325] Ondansetron [Zofran Odt] 4 mg PO Q8HR PRN #14 tab.rapdis 05/16/18 Unknown Rx cephALEXin [Keflex] 500 mg PO Q8HR #28 cap 05/16/18 Unknown Rx Ibuprofen [Motrin] 800 mg PO Q8HR PRN #30 tablet 10/27/18 Unknown Rx Permethrin 5% [Acticin 5% CREAM] 1 applicatio TP ONCE #2 tube 10/27/18 Unknown Rx Allergies Allergy/AdvReac Type Severity Reaction Status Date / Time ciprofloxacin HCl Allergy Rash Verified 09/19/17 11:42 [From Cipro] erythromycin base Allergy Rash Verified 09/19/17 11:42 [Erythromycin Base] lithium [[place]man] Allergy Headache Verified 09/19/17 11:42 nitrofurantoin Allergy Hives Verified 09/19/17 11:42 macrocrystalline [From Macrodantin] sulfamethoxazole Allergy Hives Verified 09/19/17 11:42 [From Bactrim] trimethoprim [From Bactrim] Allergy Hives Verified 09/19/17 11:42 orange juice AdvReac MOUTH SORES Verified 09/19/17 11:42 pineapple AdvReac MOUTH SORES Verified 09/19/17 11:42 mushrooms Allergy Swelling Uncoded 09/19/17 11:42 ED Review of Systems ROS: Stated complaint: HYPERGLYCEMIA Other details as noted in HPI Constitutional: malaise, weakness. denies: fever Eyes: denies: eye discharge ENT: denies: epistaxis Respiratory: denies: cough Cardiovascular: denies: chest pain Endocrine: increased thirst, increased urine Gastrointestinal: denies: vomiting Genitourinary: denies: dysuria Musculoskeletal: denies: myalgia Skin: rash, lesions Neurological: weakness Psychiatric: anxiety ED Past Medical Hx - Past Medical History Previous Medical History?: Yes Hx Hypertension: Yes Hx Diabetes: Yes Hx Psychiatric Treatment: Yes ([place], [place], etc.) Hx Asthma: Yes Hx COPD: Yes Hx Dementia: Yes Additional medical history: HIGH CHOLESTEROL, paranoid schizophrenia, PTSD, psychosis. SLEEP APNEA - Surgical History Past Surgical History?: Yes Hx Cholecystectomy: Yes Hx Appendectomy: Yes Additional Surgical History: HYSTERECTOMY, knee surgery,TONSILLECTOMY - Social History Smoking Status: Never Smoker Substance Use Type: None - Medications Home Medications: Home Medications Medication Instructions Recorded Confirmed Last Taken Type FLUoxetine HCL [PROzac] 40 mg PO QDAY 07/07/15 10/15/15 06/07/15 History Gabapentin [Neurontin] 300 mg PO BID 07/07/15 10/15/15 06/07/15 History Haloperidol Decanoate [Haldol 100 mg IM QMONTH 07/07/15 10/15/15 06/07/15 History Decanoate] Insulin Glargine [Lantus VIAL] 15 units SQ QHS 07/07/15 10/15/15 06/07/15 History Insulin Lispro Protamin/Lispro 8 units SQ TID 07/07/15 10/15/15 06/07/15 History [HumaLOG Mix 50-50 Kwikpen] Losartan [Cozaar] 60 mg PO BID 07/07/15 10/15/15 06/07/15 History Topiramate [Topamax] 200 mg PO BID 07/07/15 10/15/15 06/07/15 History hydrOXYzine PAMOATE [Vistaril] 25 mg PO QDAY 07/07/15 10/15/15 06/07/15 History Haldol 10 mg PO BID 10/15/15 10/15/15 Unknown History Januvia 100 mg PO DAILY 10/15/15 10/15/15 Unknown History Lipitor 40 mg PO HS 10/15/15 10/15/15 Unknown History Temazepam 15 mg PO HS 10/15/15 10/15/15 Unknown History Ibuprofen [Motrin] 600 mg PO Q8H PRN #30 tablet 04/26/17 Unknown Rx traMADol [Ultram 50 MG tab] 50 mg PO Q6HR PRN #20 tablet 04/26/17 Unknown Rx ALBUTEROL Inhaler (OR & NICU) 2 puff IH QID PRN #1 inhalation 09/19/17 Unknown Rx [ProAir HFA Inhaler] Azithromycin [Zithromax Z-TIFFANIE] 250 mg PO DAILY #6 tablet 09/19/17 Unknown Rx Benzonatate [Tessalon Perle] 100 mg PO TID #12 capsule 09/19/17 Unknown Rx HYDROcodone/APAP 5-325 [[place] 1 each PO Q4HR PRN #12 tablet 09/19/17 Unknown Rx 5/325] Ondansetron [Zofran Odt] 4 mg PO Q8HR PRN #14 tab.rapdis 05/16/18 Unknown Rx cephALEXin [Keflex] 500 mg PO Q8HR #28 cap 05/16/18 Unknown Rx Ibuprofen [Motrin] 800 mg PO Q8HR PRN #30 tablet 10/27/18 Unknown Rx Permethrin 5% [Acticin 5% CREAM] 1 applicatio TP ONCE #2 tube 10/27/18 Unknown Rx ED Physical Exam - General Limitations: No Limitations General appearance: alert, in no apparent distress - Head Head exam: Present: atraumatic, normocephalic - Eye Eye exam: Present: normal appearance, EOMI. Absent: nystagmus - ENT ENT exam: Present: normal exam, normal orophraynx, mucous membranes moist, normal external ear exam - Neck Neck exam: Present: normal inspection, full ROM. Absent: tenderness, meningismus - Respiratory Respiratory exam: Present: normal lung sounds bilaterally. Absent: respiratory distress - Cardiovascular Cardiovascular Exam: Present: normal rhythm, bradycardia, normal heart sounds. Absent: tachycardia, irregular rhythm, systolic murmur, diastolic murmur, rubs, gallop - GI/Abdominal GI/Abdominal exam: Present: soft. Absent: distended, tenderness, guarding, rebound, rigid, pulsatile mass - Extremities Exam Extremities exam: Present: full ROM (numerous punctate bite lesions noted on bilateral lower extremities. No pus, streaking), pedal edema, other (2+ pulses noted in the bilateral upper, lower extremities. Compartments soft. No long bony tenderness. The pelvis is stable.). Absent: calf tenderness - Back Exam Back exam: Present: normal inspection, full ROM. Absent: tenderness, CVA tenderness (R), CVA tenderness (L), paraspinal tenderness, vertebral tenderness - Neurological Exam Neurological exam: Present: alert, oriented X3, other (Extraocular movements intact. Tongue midline. No facial droop. Facial sensation intact to light touch in the V1, V2, V3 distribution bilaterally. 5 and 5 strength in 4 extremities.. Sensation is intact to light touch in 4 extremities.). Absent: motor sensory deficit - Psychiatric Psychiatric exam: Present: flat affect - Skin Skin exam: Present: warm, dry, intact, normal color. Absent: rash ED Course Vital Signs 10/27/18 10/27/18 10/27/18 02:38 02:45 04:00 Temperature 97.7 F Pulse Rate 54 L 51 L Respiratory 18 11 L Rate Blood Pressure 139/68 Blood Pressure 123/60 [Right] O2 Sat by Pulse 97 97 98 Oximetry 10/27/18 10/27/18 10/27/18 04:30 05:00 05:30 Temperature Pulse Rate 53 L 53 L 63 Respiratory 12 10 L 17 Rate Blood Pressure 141/78 115/63 139/68 Blood Pressure [Right] O2 Sat by Pulse 98 98 97 Oximetry 10/27/18 10/27/18 10/27/18 07:15 08:00 09:00 Temperature 98.1 F Pulse Rate 61 52 L 54 L Respiratory 16 12 12 Rate Blood Pressure 131/67 131/67 Blood Pressure 103/61 [Right] O2 Sat by Pulse 97 99 98 Oximetry 10/27/18 10/27/18 10/27/18 09:45 09:48 10:00 Temperature Pulse Rate 64 Respiratory 16 16 9 L Rate Blood Pressure 113/61 Blood Pressure [Right] O2 Sat by Pulse 97 Oximetry 10/27/18 11:50 Temperature 98.1 F Pulse Rate 76 Respiratory 19 Rate Blood Pressure Blood Pressure 133/76 [Right] O2 Sat by Pulse 98 Oximetry - Reevaluation(s) Reevaluation #1: 06/29/19 05:16 Differential diagnosis, including but not limited to: Hyperglycemia, insect bites Assessment and plan: 58-year-old female with painless hyperglycemia, incidentally found to have bed bugs. Laboratory studies show hyperglycemia without an anion gap acidosis. We will give the patient insulin and IV fluids. Her laboratory studies and history and physical do not merit hospitalization or admission. Once her hyperglycemia is resolved, she can medically be discharged. Patient placed on isolation for insects. Permethrin ordered. She will be discharged with prescription for permethrin, so need to have her home evaluated by an child support officer. Reevaluation #2: 10/27/18 06:18 Accu-Chek improved. Vital signs unremarkable. Medically suitable for discharge at this point in time. ED Medical Decision Making - Lab Data Result diagrams: 10/27/18 03:25 10/27/18 03:25 Vital Signs 10/27/18 02:38 Temperature 97.7 F Pulse Rate 54 L Respiratory 18 Rate Blood Pressure 123/60 [Right] O2 Sat by Pulse 97 Oximetry Lab Results 10/27/18 10/27/18 10/27/18 Range/Units 02:54 03:12 03:25 WBC 7.4 (4.5-11.0) K/mm3 RBC 4.06 (3.65-5.03) M/mm3 Hgb 12.2 (10.1-14.3) gm/dl Hct 36.2 (30.3-42.9) % MCV 89 (79-97) fl MCH 30 (28-32) pg MCHC 34 (30-34) % RDW 13.0 L (13.2-15.2) % Plt Count 239 (140-440) K/mm3 VBG pH (7.320-7.420) Sodium (137-145) mmol/L Potassium (3.6-5.0) mmol/L Chloride (98-107) mmol/L Carbon Dioxide (22-30) mmol/L Anion Gap mmol/L BUN (7-17) mg/dL Creatinine (0.7-1.2) mg/dL Estimated GFR ml/min BUN/Creatinine Ratio % Glucose (65-100) mg/dL POC Glucose 414 H (70-105) Calcium (8.4-10.2) mg/dL Magnesium (1.7-2.3) mg/dL Total Creatine Kinase (30-135) units/L Urine Color Straw (Yellow) Urine Turbidity Clear (Clear) Urine pH 6.0 (5.0-7.0) Ur Specific [place] 1.035 H (1.003-1.030) Urine Protein <15 mg/dl (Negative) mg/dL Urine Glucose (UA) >=500 (Negative) mg/dL Urine Ketones Neg (Negative) mg/dL Urine Blood Neg (Negative) Urine Nitrite Neg (Negative) Urine Bilirubin Neg (Negative) Urine Urobilinogen < 2.0 (<2.0) mg/dL Ur Leukocyte Esterase Neg (Negative) Urine WBC (Auto) 2.0 (0.0-6.0) /HPF Urine RBC (Auto) 2.0 (0.0-6.0) /HPF U Epithel Cells (Auto) 1.0 (0-13.0) /HPF 10/27/18 10/27/18 Range/Units 03:25 03:25 WBC (4.5-11.0) K/mm3 RBC (3.65-5.03) M/mm3 Hgb (10.1-14.3) gm/dl Hct (30.3-42.9) % MCV (79-97) fl MCH (28-32) pg MCHC (30-34) % RDW (13.2-15.2) % Plt Count (140-440) K/mm3 VBG pH 7.338 (7.320-7.420) Sodium 138 (137-145) mmol/L Potassium 3.9 (3.6-5.0) mmol/L Chloride 103.6 (98-107) mmol/L Carbon Dioxide 21 L (22-30) mmol/L Anion Gap 17 mmol/L BUN 21 H (7-17) mg/dL Creatinine 0.6 L (0.7-1.2) mg/dL Estimated GFR > 60 ml/min BUN/Creatinine Ratio 35 % Glucose 394 H (65-100) mg/dL POC Glucose (70-105) Calcium 9.0 (8.4-10.2) mg/dL Magnesium 1.90 (1.7-2.3) mg/dL Total Creatine Kinase 58 (30-135) units/L Urine Color (Yellow) Urine Turbidity (Clear) Urine pH (5.0-7.0) Ur Specific [place] (1.003-1.030) Urine Protein (Negative) mg/dL Urine Glucose (UA) (Negative) mg/dL Urine Ketones (Negative) mg/dL Urine Blood (Negative) Urine Nitrite (Negative) Urine Bilirubin (Negative) Urine Urobilinogen (<2.0) mg/dL Ur Leukocyte Esterase (Negative) Urine WBC (Auto) (0.0-6.0) /HPF Urine RBC (Auto) (0.0-6.0) /HPF U Epithel Cells (Auto) (0-13.0) /HPF - EKG Data 10/27/18 05:16 Sinus bradycardia, 56 bpm, leftward axis, left anterior fascicular block, high left ventricular voltage, low voltage in the lateral leads, no endorsement of chest pain, abnormal EKG, unchanged from prior EKG from November 2017, this EKG today is not consistent with ST elevation myocardial infarction. Critical care attestation.: If time is entered above; I have spent that time in minutes in the direct care of this critically ill patient, excluding procedure time. ED Disposition Clinical Impression: Hyperglycemia without ketosis, Chest wall pain Insect bite Qualifiers: Encounter type: initial encounter Site of insect bite: lower leg Laterality: unspecified laterality Qualified Code(s): S80.869A - Insect bite (nonvenomous), unspecified lower leg, initial encounter Disposition: DC-01 TO HOME OR SELFCARE Is pt being admited?: No Does the pt Need Aspirin: No Condition: Good Instructions: Chest Pain (ED), Diabetes Mellitus Type 2 in Adults (ED) Additional Instructions: Continue current outpatient medications. Follow up with your primary care d octor within the next 2-3 weeks for repeat blood sugar check up and evaluation. Please have your home evaluated by an child support officer for possible insect infestation. Wash all clothing and linens with hot water and soap. Consider purchasing a mattress cover to avoid insect bites. Use permethrin medication as directed. Return to the emergency room right away with new, worsening or different symptoms not present on the initial emergency room evaluation. Also follow up with the airline flight attendant provided or the airline flight attendant of your choice for further evaluation of your chest pain. Prescriptions: Permethrin 5% [Acticin 5% CREAM] 1 applicatio TP ONCE #2 tube Ibuprofen [Motrin] 800 mg PO Q8HR PRN #30 tablet PRN Reason: Pain , Severe (7-10) Referrals: [facility] [Provider Group] - 3-5 Days AJAY AVENDANO MD [Staff Physician] - 2-3 Days (Cigarette Catcher)
[2018-10-27] MEDS ORDERED: NACL 0.9% 1000 ML 2,000 ML ONE (05:18)
--- NOTE | 2018-10-27 07:34 | Emergency Department Report ---
ED Chest Pain HPI - General Chief Complaint: Hyperglycemia Stated Complaint: HYPERGLYCEMIA Time Seen by Provider: 10/27/18 02:16 Source: patient, EMS (ems notes not available at time of chart dictation), RN notes reviewed, old records reviewed Mode of arrival: Wheelchair Limitations: No Limitations - History of Present Illness Initial Comments: 58 yo female with a past medical history of asthma, COPD, dementia, diabetes, hypertension, paranoid schizophrenia, and sleep apnea with complaint of chest pain started several hours ago while in the ED. Patient was seen and evaluated and treated by Dr. Potter for hyperglycemia without dka and prepped for discharge. When nurse went to discharge patient she complained of left-sided chest pain. Pain described as a constant tightness that has been there for the last 3 hours. He denies associated symptoms including nausea, vomiting, or diaphoresis. Patient denies any known history of CAD or stent placement. She has had a negative cardiac cath in the past and states she had an unremarkable stress test as an outpatient this past June. Severity scale (0 -10): 0 - Related Data Home Medications Medication Instructions Recorded Confirmed Last Taken FLUoxetine HCL [PROzac] 40 mg PO QDAY 07/07/15 10/15/15 06/07/15 Gabapentin [Neurontin] 300 mg PO BID 07/07/15 10/15/15 06/07/15 Haloperidol Decanoate [Haldol 100 mg IM QMONTH 07/07/15 10/15/15 06/07/15 Decanoate] Insulin Glargine [Lantus VIAL] 15 units SQ QHS 07/07/15 10/15/15 06/07/15 Insulin Lispro Protamin/Lispro 8 units SQ TID 07/07/15 10/15/15 06/07/15 [HumaLOG Mix 50-50 Kwikpen] Losartan [Cozaar] 60 mg PO BID 07/07/15 10/15/15 06/07/15 Topiramate [Topamax] 200 mg PO BID 07/07/15 10/15/15 06/07/15 hydrOXYzine PAMOATE [Vistaril] 25 mg PO QDAY 07/07/15 10/15/15 06/07/15 Haldol 10 mg PO BID 10/15/15 10/15/15 Unknown Januvia 100 mg PO DAILY 10/15/15 10/15/15 Unknown Lipitor 40 mg PO HS 10/15/15 10/15/15 Unknown Temazepam 15 mg PO HS 10/15/15 10/15/15 Unknown Previous Rx's Medication Instructions Recorded Last Taken Type Ibuprofen [Motrin] 600 mg PO Q8H PRN #30 tablet 04/26/17 Unknown Rx traMADol [Ultram 50 MG tab] 50 mg PO Q6HR PRN #20 tablet 04/26/17 Unknown Rx ALBUTEROL Inhaler (OR & NICU) 2 puff IH QID PRN #1 inhalation 09/19/17 Unknown Rx [ProAir HFA Inhaler] Azithromycin [Zithromax Z-TIFFANIE] 250 mg PO DAILY #6 tablet 09/19/17 Unknown Rx Benzonatate [Tessalon Perle] 100 mg PO TID #12 capsule 09/19/17 Unknown Rx HYDROcodone/APAP 5-325 [[place] 1 each PO Q4HR PRN #12 tablet 09/19/17 Unknown Rx 5/325] Ondansetron [Zofran Odt] 4 mg PO Q8HR PRN #14 tab.rapdis 05/16/18 Unknown Rx cephALEXin [Keflex] 500 mg PO Q8HR #28 cap 05/16/18 Unknown Rx Ibuprofen [Motrin] 800 mg PO Q8HR PRN #30 tablet 10/27/18 Unknown Rx Permethrin 5% [Acticin 5% CREAM] 1 applicatio TP ONCE #2 tube 10/27/18 Unknown Rx Allergies Allergy/AdvReac Type Severity Reaction Status Date / Time ciprofloxacin HCl Allergy Rash Verified 09/19/17 11:42 [From Cipro] erythromycin base Allergy Rash Verified 09/19/17 11:42 [Erythromycin Base] lithium [[place]] Allergy Headache Verified 09/19/17 11:42 nitrofurantoin Allergy Hives Verified 09/19/17 11:42 macrocrystalline [From Macrodantin] sulfamethoxazole Allergy Hives Verified 09/19/17 11:42 [From Bactrim] trimethoprim [From Bactrim] Allergy Hives Verified 09/19/17 11:42 orange juice AdvReac MOUTH SORES Verified 09/19/17 11:42 pineapple AdvReac MOUTH SORES Verified 09/19/17 11:42 mushrooms Allergy Swelling Uncoded 09/19/17 11:42 Heart Score - HEART Score History: Slightly suspicious EKG: Normal Age: 45-65 Risk factors: > 3 risk factors or hx of atherosclerotic disease Troponin: < normal limit HEART Score: 3 ED Review of Systems ROS: Stated complaint: HYPERGLYCEMIA Other details as noted in HPI Comment: All other systems reviewed and negative Constitutional: malaise, weakness. denies: fever Eyes: denies: eye discharge ENT: denies: epistaxis Respiratory: denies: cough, shortness of breath Cardiovascular: chest pain Gastrointestinal: denies: vomiting Genitourinary: denies: dysuria Skin: rash, lesions Neurological: weakness (generalized) Psychiatric: anxiety ED Past Medical Hx - Past Medical History Previous Medical History?: Yes Hx Hypertension: Yes Hx Diabetes: Yes Hx Psychiatric Treatment: Yes ([facility], [place], etc.) Hx Asthma: Yes Hx COPD: Yes Hx Dementia: Yes Additional medical history: HIGH CHOLESTEROL, paranoid schizophrenia, PTSD, psychosis. SLEEP APNEA - Surgical History Past Surgical History?: Yes Hx Cholecystectomy: Yes Hx Appendectomy: Yes Additional Surgical History: HYSTERECTOMY, knee surgery,TONSILLECTOMY - Social History Smoking Status: Never Smoker Substance Use Type: None - Medications Home Medications: Home Medications Medication Instructions Recorded Confirmed Last Taken Type FLUoxetine HCL [PROzac] 40 mg PO QDAY 07/07/15 10/15/15 06/07/15 History Gabapentin [Neurontin] 300 mg PO BID 07/07/15 10/15/15 06/07/15 History Haloperidol Decanoate [Haldol 100 mg IM QMONTH 07/07/15 10/15/15 06/07/15 History Decanoate] Insulin Glargine [Lantus VIAL] 15 units SQ QHS 07/07/15 10/15/15 06/07/15 History Insulin Lispro Protamin/Lispro 8 units SQ TID 07/07/15 10/15/15 06/07/15 History [HumaLOG Mix 50-50 Kwikpen] Losartan [Cozaar] 60 mg PO BID 07/07/15 10/15/15 06/07/15 History Topiramate [Topamax] 200 mg PO BID 07/07/15 10/15/15 06/07/15 History hydrOXYzine PAMOATE [Vistaril] 25 mg PO QDAY 07/07/15 10/15/1516 History Haldol 10 mg PO BID 10/15/15 10/15/15 Unknown History Januvia 100 mg PO DAILY 10/15/15 10/15/15 Unknown History Lipitor 40 mg PO HS 10/15/15 10/15/15 Unknown History Temazepam 15 mg PO HS 10/15/15 10/15/15 Unknown History Ibuprofen [Motrin] 600 mg PO Q8H PRN #30 tablet 04/26/17 Unknown Rx traMADol [Ultram 50 MG tab] 50 mg PO Q6HR PRN #20 tablet 04/26/17 Unknown Rx ALBUTEROL Inhaler (OR & NICU) 2 puff IH QID PRN #1 inhalation 09/19/17 Unknown Rx [ProAir HFA Inhaler] Azithromycin [Zithromax Z-TIFFANIE] 250 mg PO DAILY #6 tablet 09/19/17 Unknown Rx Benzonatate [Tessalon Perle] 100 mg PO TID #12 capsule 09/19/17 Unknown Rx HYDROcodone/APAP 5-325 [[place] 1 each PO Q4HR PRN #12 tablet 09/19/17 Unknown Rx 5/325] Ondansetron [Zofran Odt] 4 mg PO Q8HR PRN #14 tab.rapdis 05/16/18 Unknown Rx cephALEXin [Keflex] 500 mg PO Q8HR #28 cap 05/16/18 Unknown Rx Ibuprofen [Motrin] 800 mg PO Q8HR PRN #30 tablet 10/27/18 Unknown Rx Permethrin 5% [Acticin 5% CREAM] 1 applicatio TP ONCE #2 tube 10/27/18 Unknown Rx ED Physical Exam - General Limitations: No Limitations General appearance: alert, in no apparent distress - Other Other exam information: General: No limitations, patient is alert in no acute distress Head exam: Atraumatic, normocephalic Eyes exam: Normal appearance ENT: Moist mucous membrane Neck exam: Normal inspection, full range of motion, no meningismus nontender Respiratory exam: Clear to auscultation bilateral, no wheezes, rales, crackles. Reproducible left parasternal chest wall tenderness on palpation Cardiovascular: Normal rate and rhythm, normal heart sounds Abdomen: Soft, nondistended, and nontender, with normal bowel sounds, no rebound, or guarding Extremity: Full range of motion normal inspection no deformity, no calf tenderness or edema Back: Normal Inspection, full range of motion, no tenderness Neurologic: Alert, oriented x3, cranial nerves intact, no motor or sensory deficit Psychiatric: normal affect, normal mood Skin: Bite manuel suspicious for bedbug ED Course Vital Signs 10/27/18 10/27/18 10/27/18 02:38 02:45 04:00 Temperature 97.7 F Pulse Rate 54 L 51 L Respiratory 18 11 L Rate Blood Pressure 139/68 Blood Pressure 123/60 [Right] O2 Sat by Pulse 97 97 98 Oximetry 10/27/18 10/27/18 10/27/18 04:30 05:00 05:30 Temperature Pulse Rate 53 L 53 L 63 Respiratory 12 10 L 17 Rate Blood Pressure 141/78 115/63 139/68 Blood Pressure [Right] O2 Sat by Pulse 98 98 97 Oximetry 10/27/18 10/27/18 10/27/18 07:15 08:00 09:00 Temperature 98.1 F Pulse Rate 61 52 L 54 L Respiratory 16 12 12 Rate Blood Pressure 131/67 131/67 Blood Pressure 103/61 [Right] O2 Sat by Pulse 97 99 98 Oximetry 10/27/18 10/27/18 10/27/18 09:45 09:48 10:00 Temperature Pulse Rate 64 Respiratory 16 16 9 L Rate Blood Pressure 113/61 Blood Pressure [Right] O2 Sat by Pulse 97 Oximetry - Reevaluation(s) Reevaluation #1: 10/27/18 07:35 Initial EKG performed at 4:37 AM reviewed and shows sinus bradycardia with rate 56 with low voltage. No ST elevation OH. Chest pain is reproducible at this time. Has been ordered. Troponin 2 pending 10/27/18 09:42 Pt c/o cp, toradol and tramadol provided NIKO score - Niko Score Age > 65: (0) No Aspirin use within the Past 7 Days: (0) No 3 or more CAD Risk Factors: (1) Yes 2 or more Angina events in past 24 hrs: (0) No Known CAD with more than 50% Stenosis: (0) No Elevated Cardiac Markers: (0) No ST Deviation Greater than 0.5mm: (0) No NIKO Score: 1 ED Medical Decision Making - Lab Data Result diagrams: 10/27/18 03:25 10/27/18 03:25 Lab Results 10/27/18 10/27/18 10/27/18 Range/Units 02:54 03:12 03:25 WBC 7.4 (4.5-11.0) K/mm3 RBC 4.06 (3.65-5.03) M/mm3 Hgb 12.2 (10.1-14.3) gm/dl Hct 36.2 (30.3-42.9) % MCV 89 (79-97) fl MCH 30 (28-32) pg MCHC 34 (30-34) % RDW 13.0 L (13.2-15.2) % Plt Count 239 (140-440) K/mm3 VBG pH (7.320-7.420) Sodium (137-145) mmol/L Potassium (3.6-5.0) mmol/L Chloride (98-107) mmol/L Carbon Dioxide (22-30) mmol/L Anion Gap mmol/L BUN (7-17) mg/dL Creatinine (0.7-1.2) mg/dL Estimated GFR ml/min BUN/Creatinine Ratio % Glucose (65-100) mg/dL POC Glucose 414 H (70-105) Calcium (8.4-10.2) mg/dL Magnesium (1.7-2.3) mg/dL Total Creatine Kinase (30-135) units/L Troponin T (0.00-0.029) ng/mL Urine Color Straw (Yellow) Urine Turbidity Clear (Clear) Urine pH 6.0 (5.0-7.0) Ur Specific [place] 1.035 H (1.003-1.030) Urine Protein <15 mg/dl (Negative) mg/dL Urine Glucose (UA) >=500 (Negative) mg/dL Urine Ketones Neg (Negative) mg/dL Urine Blood Neg (Negative) Urine Nitrite Neg (Negative) Urine Bilirubin Neg (Negative) Urine Urobilinogen < 2.0 (<2.0) mg/dL Ur Leukocyte Esterase Neg (Negative) Urine WBC (Auto) 2.0 (0.0-6.0) /HPF Urine RBC (Auto) 2.0 (0.0-6.0) /HPF U Epithel Cells (Auto) 1.0 (0-13.0) /HPF 10/27/18 10/27/18 10/27/18 Range/Units 03:25 03:25 06:22 WBC (4.5-11.0) K/mm3 RBC (3.65-5.03) M/mm3 Hgb (10.1-14.3) gm/dl Hct (30.3-42.9) % MCV (79-97) fl MCH (28-32) pg MCHC (30-34) % RDW (13.2-15.2) % Plt Count (140-440) K/mm3 VBG pH 7.338 (7.320-7.420) Sodium 138 (137-145) mmol/L Potassium 3.9 (3.6-5.0) mmol/L Chloride 103.6 (98-107) mmol/L Carbon Dioxide 21 L (22-30) mmol/L Anion Gap 17 mmol/L BUN 21 H (7-17) mg/dL Creatinine 0.6 L (0.7-1.2) mg/dL Estimated GFR > 60 ml/min BUN/Creatinine Ratio 35 % Glucose 394 H (65-100) mg/dL POC Glucose 266 H (70-105) Calcium 9.0 (8.4-10.2) mg/dL Magnesium 1.90 (1.7-2.3) mg/dL Total Creatine Kinase 58 (30-135) units/L Troponin T (0.00-0.029) ng/mL Urine Color (Yellow) Urine Turbidity (Clear) Urine pH (5.0-7.0) Ur Specific [place] (1.003-1.030) Urine Protein (Negative) mg/dL Urine Glucose (UA) (Negative) mg/dL Urine Ketones (Negative) mg/dL Urine Blood (Negative) Urine Nitrite (Negative) Urine Bilirubin (Negative) Urine Urobilinogen (<2.0) mg/dL Ur Leukocyte Esterase (Negative) Urine WBC (Auto) (0.0-6.0) /HPF Urine RBC (Auto) (0.0-6.0) /HPF U Epithel Cells (Auto) (0-13.0) /HPF 10/27/18 10/27/18 Range/Units 07:46 10:00 WBC (4.5-11.0) K/mm3 RBC (3.65-5.03) M/mm3 Hgb (10.1-14.3) gm/dl Hct (30.3-42.9) % MCV (79-97) fl MCH (28-32) pg MCHC (30-34) % RDW (13.2-15.2) % Plt Count (140-440) K/mm3 VBG pH (7.320-7.420) Sodium (137-145) mmol/L Potassium (3.6-5.0) mmol/L Chloride (98-107) mmol/L Carbon Dioxide (22-30) mmol/L Anion Gap mmol/L BUN (7-17) mg/dL Creatinine (0.7-1.2) mg/dL Estimated GFR ml/min BUN/Creatinine Ratio % Glucose (65-100) mg/dL POC Glucose (70-105) Calcium (8.4-10.2) mg/dL Magnesium (1.7-2.3) mg/dL Total Creatine Kinase (30-135) units/L Troponin T < 0.010 < 0.010 (0.00-0.029) ng/mL Urine Color (Yellow) Urine Turbidity (Clear) Urine pH (5.0-7.0) Ur Specific [place] (1.003-1.030) Urine Protein (Negative) mg/dL Urine Glucose (UA) (Negative) mg/dL Urine Ketones (Negative) mg/dL Urine Blood (Negative) Urine Nitrite (Negative) Urine Bilirubin (Negative) Urine Urobilinogen (<2.0) mg/dL Ur Leukocyte Esterase (Negative) Urine WBC (Auto) (0.0-6.0) /HPF Urine RBC (Auto) (0.0-6.0) /HPF U Epithel Cells (Auto) (0-13.0) /HPF - EKG Data -: EKG Interpreted by Ct EKG shows normal: sinus rhythm, axis (qrs 5), QRS complexes (qrsd 90), ST-T w aves (no stemi) Rate: bradycardia (52) - EKG Data When compared to previous EKG there are: previous EKG unavailable 10/27/18 11:42 2nd ekg at 10:30 am without acute changes and remains normal sinus with rate 64 - Radiology Data Radiology results: report reviewed PROCEDURE: XR CHEST 1V AP TECHNIQUE: Chest, portable upright HISTORY: cp COMPARISON: 11/30/2017 FINDINGS: The heart size is normal. There is no pulmonary vascular congestion seen. Mediastinal contours are normal. Lungs are clear. There is no pleural effusion seen. There is no pneumothorax seen. IMPRESSION: No acute abnormality identified. - Medical Decision Making Patient's symptoms are atypical and reproducible to palpation. She has a normal EKG 2, negative troponin 2, and reports a negative stress test performed this year. No signs of hypoxia, pleuritic pain, or clinical symptoms of DVT. Patient treated with aspirin, Toradol, and tramadol, evaluation and will be discharged home with meds - Differential Diagnosis atypical chest pain, costochondritis, OH, unstable angina Critical Care Time: No Critical care attestation.: If time is entered above; I have spent that time in minutes in the direct care of this critically ill patient, excluding procedure time. ED Disposition Clinical Impression: Hyperglycemia without ketosis, Chest wall pain Insect bite Qualifiers: Encounter type: initial encounter Site of insect bite: lower leg Laterality: unspecified laterality Qualified Code(s): S80.869A - Insect bite (nonvenomous), unspecified lower leg, initial encounter Disposition: TO HOME OR SELFCARE Is pt being admited?: No Condition: Good Instructions: Chest Pain (ED), Diabetes Mellitus Type 2 in Adults (ED) Additional Instructions: Continue current outpatient medications. Follow up with your primary care doctor within the next 2-3 weeks for repeat blood sugar check up and evaluation. Please have your home evaluated by an etcher photoengraving for possible insect infestation. Wash all clothing and linens with hot water and soap. Consider purchasing a mattress cover to avoid insect bites. Use permethrin medication as directed. Return to the emergency room right away with new, worsening or different symptoms not present on the initial emergency room evaluation. Also follow up with the high school hvac r instructor provided or the high school hvac r instructor of your choice for further evaluation of your chest pain. Prescriptions: Permethrin 5% [Acticin 5% CREAM] 1 applicatio TP ONCE #2 tube Ibuprofen [Motrin] 800 mg PO Q8HR PRN #30 tablet PRN Reason: Pain , Severe (7-10) Referrals: [facility] [Provider Group] - 3-5 Days AJAY AVENDANO MD [Staff Physician] - 2-3 Days (Funnel Setter) Time of Disposition: 11:49
[2018-10-27] MEDS ORDERED: ASPIRIN PO ONE (07:35)
--- NOTE | 2018-10-27 08:57 | XRay Report ---
PROCEDURE: XR CHEST 1V AP TECHNIQUE: Chest, portable upright HISTORY: cp COMPARISON: 11/30/2017 FINDINGS: The heart size is normal. There is no pulmonary vascular congestion seen. Mediastinal contours are normal. Lungs are clear. There is no pleural effusion seen. There is no pneumothorax seen. IMPRESSION: No acute abnormality identified. This document is electronically signed by Nancy Stafford MD., October 27 2018 08:55:21 AM ET
[2018-10-27] MEDS ORDERED: TORADOL IV ONE (09:41)
[2018-10-27] MEDS ORDERED: ULTRAM PO ONE (09:41)
[2018-10-27 12:56] VITALS: BP 133/76
== END 2018-10-27 13:39 | disposition home or self-care (01) ==
LOC: ED 01:42
DX: E11.65 Type 2 diabetes mellitus with hyperglycemia (principal); R07.89 Other chest pain; S40.862A Insect bite (nonvenomous) of left upper arm, initial encounter; S40.861A Insect bite (nonvenomous) of right upper arm, initial encounter; S80.862A Insect bite (nonvenomous), left lower leg, initial encounter; S80.861A Insect bite (nonvenomous), right lower leg, initial encounter; I10 Essential (primary) hypertension; G47.30 Sleep apnea, unspecified; F03.90 Unspecified dementia, unspecified severity, without behavioral disturbance, psychotic disturbance, mood disturbance, and anxiety; J44.9 Chronic obstructive pulmonary disease, unspecified; E78.00 Pure hypercholesterolemia, unspecified; F43.10 Post-traumatic stress disorder, unspecified; F20.0 Paranoid schizophrenia; Z90.49 Acquired absence of other specified parts of digestive tract; Z90.89 Acquired absence of other organs; Z98.890 Other specified postprocedural states; Z79.899 Other long term (current) drug therapy; Z79.4 Long term (current) use of insulin; Z88.1 Allergy status to other antibiotic agents; Z91.041 Radiographic dye allergy status; Z91.048 Other nonmedicinal substance allergy status; Z88.2 Allergy status to sulfonamides; Z91.018 Allergy to other foods; W57.XXXA Bitten or stung by nonvenomous insect and other nonvenomous arthropods, initial encounter; Y92.89 Other specified places as the place of occurrence of the external cause; Y93.89 Activity, other specified; Y99.8 Other external cause status
CPT/HCPCS: 36415; 71045; 80048; 81001; 82550; 82805; 82962; 83735; 84484; 85027; 87086; 93005; 93010; 96361; 96374; 96375; 99285; J1885; J7030; J1815

== ENCOUNTER 2018-10-30 22:58 | Emergency (ER) | payer MEDICARE ==
[2018-10-31 00:15] LABS: Basophils % (Auto) 0.6 % (0.0-1.8); Eosinophils # (Auto) 0.1 K/mm3 (0.0-0.4); Hematocrit 36.4 % (30.3-42.9); Hemoglobin 12.8 gm/dl (10.1-14.3); Lymphocytes # (Auto) 2.5 K/mm3 (1.2-5.4); Lymphocytes % (Auto) 30.2 % (13.4-35.0); Mean Corpuscular HGB Conc 35 % (30-34); Mean Corpuscular Volume 88 fl (79-97); Monocytes # (Auto) 0.4 K/mm3 (0.0-0.8); Monocytes % (Auto) 4.6 % (0.0-7.3); Platelet Count 249 K/mm3 (140-440); Red Blood Count 4.12 M/mm3 (3.65-5.03); Red Cell Distribution Width 13.7 % (13.2-15.2)
--- NOTE | 2018-10-31 00:23 | XRay Report ---
CHEST 1 VIEW INDICATION / CLINICAL INFORMATION: Chest Pain. COMPARISON: 10/27/2018 FINDINGS: SUPPORT DEVICES: None. HEART / MEDIASTINUM: No significant abnormality. LUNGS / PLEURA: No significant pulmonary or pleural abnormality. No pneumothorax. ADDITIONAL FINDINGS: No significant additional findings. IMPRESSION: 1. No acute findings. No interval change Signer Name: Jazmin Contreras MD Signed: 10/30/2018 11:19 PM Workstation Name: [id number]
--- NOTE | 2018-10-31 00:41 | Emergency Department Report ---
HPI - General Chief Complaint: Hyperglycemia Time Seen by Provider: 10/30/18 23:58 - HPI HPI: 58-year-old female presents to the emergency department via EMS from home with complaint of hyperglycemia. The patient has a history of insulin dependent diabetes and says that she is compliant with her insulin and her diabetic diet but her blood sugar "goes up and down like a yo-yo." She takes 70/30 with 16 units in the morning and 28 units at night. She also has a past medical history of asthma, COPD, dementia, hypertension, high cholesterol, sleep apnea and schizophrenia. The patient follows with [facility] but says that her primary care physician is out of the office this week. She checked her blood sugar at home and it was 517 this evening. No recent travel or sick contacts at home. ED Past Medical Hx - Past Medical History Hx Hypertension: Yes Hx Diabetes: Yes Hx Psychiatric Treatment: Yes ([place], [place], etc.) Hx Asthma: Yes Hx COPD: Yes Hx Dementia: Yes Additional medical history: HIGH CHOLESTEROL, paranoid schizophrenia, PTSD, psychosis. SLEEP APNEA - Surgical History Hx Cholecystectomy: Yes Hx Appendectomy: Yes Additional Surgical History: HYSTERECTOMY, knee surgery,TONSILLECTOMY - Social History Smoking Status: Never Smoker Substance Use Type: None - Medications Home Medications: Home Medications Medication Instructions Recorded Confirmed Last Taken Type FLUoxetine HCL [PROzac] 40 mg PO QDAY 07/07/15 10/15/15 06/07/15 History Gabapentin [Neurontin] 300 mg PO BID 07/07/15 10/15/15 06/07/15 History Haloperidol Decanoate [Haldol 100 mg IM QMONTH 07/07/15 10/15/15 06/07/15 History Decanoate] Insulin Glargine [Lantus VIAL] 15 units SQ QHS 07/07/15 10/15/15 06/07/15 History Insulin Lispro Protamin/Lispro 8 units SQ TID 07/07/15 10/15/15 06/07/15 History [HumaLOG Mix 50-50 Kwikpen] Losartan [Cozaar] 60 mg PO BID 07/07/15 10/15/15 06/07/15 History Topiramate [Topamax] 200 mg PO BID 07/07/15 10/15/15 06/07/15 History hydrOXYzine PAMOATE [Vistaril] 25 mg PO QDAY 07/07/15 10/15/15 06/07/15 History Haldol 10 mg PO BID 10/15/15 10/15/15 Unknown History Januvia 100 mg PO DAILY 10/15/15 10/15/15 Unknown History Lipitor 40 mg PO HS 10/15/15 10/15/15 Unknown History Temazepam 15 mg PO HS 10/15/15 10/15/15 Unknown History Ibuprofen [Motrin] 600 mg PO Q8H PRN #30 tablet 04/26/17 Unknown Rx traMADol [Ultram 50 MG tab] 50 mg PO Q6HR PRN #20 tablet 04/26/17 Unknown Rx ALBUTEROL Inhaler (OR & NICU) 2 puff IH QID PRN #1 inhalation 09/19/17 Unknown Rx [ProAir HFA Inhaler] Azithromycin [Zithromax Z-TIFFANIE] 250 mg PO DAILY #6 tablet 09/19/17 Unknown Rx Benzonatate [Tessalon Perle] 100 mg PO TID #12 capsule 09/19/17 Unknown Rx HYDROcodone/APAP 5-325 [[place] 1 each PO Q4HR PRN #12 tablet 09/19/17 Unknown Rx 5/325] Ondansetron [Zofran Odt] 4 mg PO Q8HR PRN #14 tab.rapdis 05/16/18 Unknown Rx cephALEXin [Keflex] 500 mg PO Q8HR #28 cap 05/16/18 Unknown Rx Ibuprofen [Motrin] 800 mg PO Q8HR PRN #30 tablet 10/27/18 Unknown Rx Permethrin 5% [Acticin 5% CREAM] 1 applicatio TP ONCE #2 tube 10/27/18 Unknown Rx ED Review of Systems ROS: Stated complaint: HIGH BLOOD SUGAR Other details as noted in HPI Comment: All other systems reviewed and negative Constitutional: denies: chills, fever Eyes: denies: eye pain, vision change ENT: denies: ear pain, throat pain Respiratory: denies: cough, shortness of breath Cardiovascular: denies: chest pain, palpitations Endocrine: increased thirst, increased urine Gastrointestinal: denies: abdominal pain, vomiting Genitourinary: frequency. denies: dysuria Musculoskeletal: denies: back pain, arthralgia Skin: denies: rash, lesions Neurological: denies: headache, numbness Physical Exam - Physical Exam Vital Signs: Vital Signs 10/30/18 10/31/18 23:54 00:01 Temperature 97.9 F Pulse Rate 89 Respiratory 18 18 Rate Blood Pressure 106/57 [Left] O2 Sat by Pulse 95 Oximetry Physical Exam: GENERAL: The patient is well-developed well-nourished. HENT: Normocephalic. Atraumatic. Patient has moist mucous membranes. EYES: Extraocular motions are intact. Pupils equal reactive to light bilaterally. NECK: Supple. Trachea is midline. CHEST/LUNGS: Clear to auscultation. There is no respiratory distress noted. HEART/CARDIOVASCULAR: Regular. There is no tachycardia. There is no murmur. ABDOMEN: Abdomen is soft, nontender. Patient has normal bowel sounds. There is no abdominal distention. SKIN: Skin is warm and dry. There are generalized small red flat lesions and excoriations to the bilateral legs and arms that may be consistent with the patient's complaint of bed bugs. NEURO: The patient is awake, alert, and oriented. The patient is cooperative. The patient has no focal neurologic deficits. The patient has normal speech. Cranial nerves II through XII grossly intact. MUSCULOSKELETAL: There is no tenderness or deformity. There is no limitation range of motion. There is no evidence of acute injury. ED Course Vital Signs 10/30/18 10/31/18 23:54 00:01 Temperature 97.9 F Pulse Rate 89 Respiratory 18 18 Rate Blood Pressure 106/57 [Left] O2 Sat by Pulse 95 Oximetry ED Medical Decision Making - Lab Data Result diagrams: 10/30/18 23:50 10/30/18 23:50 - EKG Data -: EKG Interpreted by Me EKG shows normal: sinus rhythm, axis, intervals, QRS complexes, ST-T waves Rate: normal - EKG Data When compared to previous EKG there are: previous EKG unavailable Interpretation: normal EKG - Radiology Data Radiology results: report reviewed, image reviewed interpreted by me: Chest x-ray does not show any acute process. There are no pleural effusions, obvious pneumonia and there is no pneumothorax. CT head/brain wo con INDICATION / CLINICAL INFORMATION: generalized weakness. TECHNIQUE: Axial CT imaging of the brain was obtained without contrast. Coronal and sagittal reformatted imaging obtained and reviewed. All CT scans at this location are performed using CT dose reduction for ALARA by means of automated exposure control. COMPARISON: Prior head CT, 12/06/2017 FINDINGS: No intracranial hemorrhage, mass, or midline shift noted. No extra-axial fluid collection or suggestion for acute territorial infarct. Visualized paranasal sinuses are well aerated and grossly clear. Mastoid air cells are well aerated and clear. No calvarial abnormality. IMPRESSION: 1. No acute intracranial abnormality. No interval change from prior exam. - Medical Decision Making This patient presents to the emergency department with complaint of hyperglycemia with a blood sugar of about 515 at home. The patient does not appear to be in diabetic ketoacidosis as there is no venous acidosis or elevated anion gap. Her blood sugar was about 450 from the serum blood draw. She was given 1 L of IV fluid and a dose of IV insulin and her blood sugar came down to about 140 on Accu-Chek. The patient complains of some generalized and in termittent weakness so further evaluation was done. She does not have any focal, motor or sensory deficits in her cranial nerves are intact. A CT scan of the head without contrast was done that does not show any acute bleed, shift, mass, ischemia, or any other acute process. Her EKG does not show any signs of ST elevation [place] or dysrhythmia. She had negative troponins 2. The rest of her blood work was unremarkable as well. Vital signs stable throughout her ED course. For all of these reasons, the patient appears safe for discharge home. Prior to discharge, the patient was seen ambulatory in the emergency department and appears stable. The patient is to follow-up with her primary care physician and to return to the ER with any worsening of her symptoms or any acute distress. - Differential Diagnosis DKA, HHNK, Dsyrythmia, CVA, electrolyte abnormalities Critical Care Time: No Critical care attestation.: If time is entered above; I have spent that time in minutes in the direct care of this critically ill patient, excluding procedure time. ED Disposition Clinical Impression: Hyperglycemia without ketosis, Insulin dependent diabetes mellitus Disposition: DC-01 TO HOME OR SELFCARE Is pt being admited?: No Condition: Stable Instructions: Diabetic Hyperglycemia (ED) Additional Instructions: Please follow-up with your primary care physician in the next few days. Return to the emergency Department with any worsening of your symptoms or any acute distress. Try and stay away from foods that are high in carbohydrates, sugar and starches to help with your diabetes. Keep a blood sugar log. Referrals: [facility] [Provider Group] - 2-3 Days Time of Disposition: 04:04
[2018-10-31 00:48] LABS: BUN/Creatinine Ratio 33; Blood Urea Nitrogen 26 mg/dL (7-17); Calcium 9.6 mg/dL (8.4-10.2); Hemolysis Index 4
[2018-10-31] MEDS ORDERED: NACL 0.9% 1000 ML 1,000 ML IV ONE (00:53)
[2018-10-31] MEDS ORDERED: HumuLIN R IV ONE (00:54)
--- NOTE | 2018-10-31 03:32 | Cat Scan Report ---
CT head/brain wo con INDICATION / CLINICAL INFORMATION: generalized weakness. TECHNIQUE: Axial CT imaging of the brain was obtained without contrast. Coronal and sagittal reformatted imaging obtained and reviewed. All CT scans at this location are performed using CT dose reduction for ALARA by means of automated exposure control. COMPARISON: Prior head CT, 12/06/2017 FINDINGS: No intracranial hemorrhage, mass, or midline shift noted. No extra-axial fluid collection or suggesti on for acute territorial infarct. Visualized paranasal sinuses are well aerated and grossly clear. Mastoid air cells are well aerated a nd clear. No calvarial abnormality. IMPRESSION: 1. No acute intracranial abnormality. No interval change from prior exam. Signer Name: Jazmin Contreras MD Signed: 10/31/2018 2:27 AM Workstation Name: [id number]
[2018-10-31 03:41] VITALS: BP 116/64
== END 2018-10-31 07:16 | disposition home or self-care (01) ==
LOC: ED 22:58
DX: E11.65 Type 2 diabetes mellitus with hyperglycemia (principal); J44.9 Chronic obstructive pulmonary disease, unspecified; I10 Essential (primary) hypertension; E78.00 Pure hypercholesterolemia, unspecified; G47.30 Sleep apnea, unspecified; F20.0 Paranoid schizophrenia; F43.10 Post-traumatic stress disorder, unspecified; Z79.4 Long term (current) use of insulin; Z90.49 Acquired absence of other specified parts of digestive tract; Z90.710 Acquired absence of both cervix and uterus; Z98.890 Other specified postprocedural states; Z79.1 Long term (current) use of non-steroidal anti-inflammatories (NSAID); Z79.899 Other long term (current) drug therapy
CPT/HCPCS: 36415; 70450; 71045; 80048; 82805; 82962; 84484; 85025; 93005; 93010; 96361; 96374; 99285; J7030; J1815

== ENCOUNTER 2018-10-31 10:07 | Emergency (ER) | payer MEDICARE ==
[2018-10-31 10:20] VITALS: BP 125/75
--- NOTE | 2018-10-31 12:03 | Emergency Department Report ---
ED General Adult HPI - General Chief complaint: Seizure Stated complaint: FEEL LIKE GOING TO HAVE SEIZURE Time Seen by Provider: 10/31/18 11:18 Source: patient Mode of arrival: Ambulatory Limitations: No Limitations - History of Present Illness Initial comments: Patient is a 58-year-old female who presents to the emergency room with complaints of not taking her medication. States she was in the emergency room last night and did not take her seizure medication last night or this morning. Pt states she takes vempat for her seizures. she states she feels like she is "going to have a seizure." She states she "started to go into one all she was in the emergency room but brought herself out of it." She does not report any symptoms currently. she states she has a mild SMITH and has a hx of migraines and is requesting something for her SMITH. PMHx of bipolar, schizophrenia, PTSD, HTN, DM. PCP: [facility] rodrigo Jaime Severity scale (0 -10): 0 - Related Data Home Medications Medication Instructions Recorded Confirmed Last Taken FLUoxetine HCL [PROzac] 40 mg PO QDAY 07/07/15 10/15/15 06/07/15 Gabapentin [Neurontin] 300 mg PO BID 07/07/15 10/15/15 06/07/15 Haloperidol Decanoate [Haldol 100 mg IM QMONTH 07/07/15 10/15/15 06/07/15 Decanoate] Insulin Glargine [Lantus VIAL] 15 units SQ QHS 07/07/15 10/15/15 06/07/15 Insulin Lispro Protamin/Lispro 8 units SQ TID 07/07/15 10/15/15 06/07/15 [HumaLOG Mix 50-50 Kwikpen] Losartan [Cozaar] 60 mg PO BID 07/07/15 10/15/15 06/07/15 Topiramate [Topamax] 200 mg PO BID 07/07/15 10/15/15 06/07/15 hydrOXYzine PAMOATE [Vistaril] 25 mg PO QDAY 07/07/15 10/15/15 06/07/15 Haldol 10 mg PO BID 10/15/15 10/15/15 Unknown Januvia 100 mg PO DAILY 10/15/15 10/15/15 Unknown Lipitor 40 mg PO HS 10/15/15 10/15/15 Unknown Temazepam 15 mg PO HS 10/15/15 10/15/15 Unknown Previous Rx's Medication Instructions Recorded Last Taken Type Ibuprofen [Motrin] 600 mg PO Q8H PRN #30 tablet 04/26/17 Unknown Rx traMADol [Ultram 50 MG tab] 50 mg PO Q6HR PRN #20 tablet 04/26/17 Unknown Rx ALBUTEROL Inhaler (OR & NICU) 2 puff IH QID PRN #1 inhalation 09/19/17 Unknown Rx [ProAir HFA Inhaler] Azithromycin [Zithromax Z-TIFFANIE] 250 mg PO DAILY #6 tablet 09/19/17 Unknown Rx Benzonatate [Tessalon Perle] 100 mg PO TID #12 capsule 09/19/17 Unknown Rx HYDROcodone/APAP 5-325 [[place] 1 each PO Q4HR PRN #12 tablet 09/19/17 Unknown Rx 5/325] Ondansetron [Zofran Odt] 4 mg PO Q8HR PRN #14 tab.rapdis 05/16/18 Unknown Rx cephALEXin [Keflex] 500 mg PO Q8HR #28 cap 05/16/18 Unknown Rx Ibuprofen [Motrin] 800 mg PO Q8HR PRN #30 tablet 10/27/18 Unknown Rx Permethrin 5% [Acticin 5% CREAM] 1 applicatio TP ONCE #2 tube 10/27/18 Unknown Rx Allergies Allergy/AdvReac Type Severity Reaction Status Date / Time ciprofloxacin HCl Allergy Rash Verified 10/31/18 10:20 [From Cipro] erythromycin base Allergy Rash Verified 10/31/18 10:20 [Erythromycin Base] lithium [[place]] Allergy Headache Verified 10/31/18 10:20 nitrofurantoin Allergy Hives Verified 10/31/18 10:20 macrocrystalline [From Macrodantin] sulfamethoxazole Allergy Hives Verified 10/31/18 10:20 [From Bactrim] trimethoprim [From Bactrim] Allergy Hives Verified 10/31/18 10:20 orange juice AdvReac MOUTH SORES Verified 10/31/18 10:20 pineapple AdvReac MOUTH SORES Verified 10/31/18 10:20 mushrooms Allergy Swelling Uncoded 09/19/17 11:42 ED Review of Systems ROS: Stated complaint: FEEL LIKE GOING TO HAVE SEIZURE Other details as noted in HPI Comment: All other systems reviewed and negative ED Past Medical Hx - Past Medical History Previous Medical History?: Yes Hx Hypertension: Yes Hx Diabetes: Yes Hx Seizures: Yes Hx Psychiatric Treatment: Yes ([place], [place], etc.) Hx Asthma: Yes Hx COPD: Yes Hx Dementia: Yes Additional medical history: HIGH CHOLESTEROL, paranoid schizophrenia, PTSD, psychosis. SLEEP APNEA - Surgical History Past Surgical History?: Yes Hx Cholecystectomy: Yes Hx Appendectomy: Yes Additional Surgical History: HYSTERECTOMY, knee surgery,TONSILLECTOMY - Social History Smoking Status: Never Smoker Substance Use Type: None - Medications Home Medications: Home Medications Medication Instructions Recorded Confirmed Last Taken Type FLUoxetine HCL [PROzac] 40 mg PO QDAY 07/07/15 10/15/15 06/07/15 History Gabapentin [Neurontin] 300 mg PO BID 07/07/15 10/15/15 06/07/15 History Haloperidol Decanoate [Haldol 100 mg IM QMONTH 07/07/15 10/15/15 06/07/15 History Decanoate] Insulin Glargine [Lantus VIAL] 15 units SQ QHS 07/07/15 10/15/15 06/07/15 History Insulin Lispro Protamin/Lispro 8 units SQ TID 07/07/15 10/15/15 06/07/15 History [HumaLOG Mix 50-50 Kwikpen] Losartan [Cozaar] 60 mg PO BID 07/07/15 10/15/15 06/07/15 History Topiramate [Topamax] 200 mg PO BID 07/07/15 10/15/15 06/07/15 History hydrOXYzine PAMOATE [Vistaril] 25 mg PO QDAY 07/07/15 10/15/15 06/07/15 History Haldol 10 mg PO BID 10/15/15 10/15/15 Unknown History Januvia 100 mg PO DAILY 10/15/15 10/15/15 Unknown History Lipitor 40 mg PO HS 10/15/15 10/15/15 Unknown History Temazepam 15 mg PO HS 10/15/15 10/15/15 Unknown History Ibuprofen [Motrin] 600 mg PO Q8H PRN #30 tablet 04/26/17 Unknown Rx traMADol [Ultram 50 MG tab] 50 mg PO Q6HR PRN #20 tablet 04/26/17 Unknown Rx ALBUTEROL Inhaler (OR & NICU) 2 puff IH QID PRN #1 inhalation 09/19/17 Unknown Rx [ProAir HFA Inhaler] Azithromycin [Zithromax Z-TIFFANIE] 250 mg PO DAILY #6 tablet 09/19/17 Unknown Rx Benzonatate [Tessalon Perle] 100 mg PO TID #12 capsule 09/19/17 Unknown Rx HYDROcodone/APAP 5-325 [[place] 1 each PO Q4HR PRN #12 tablet 09/19/17 Unknown Rx 5/325] Ondansetron [Zofran Odt] 4 mg PO Q8HR PRN #14 tab.rapdis 05/16/18 Unknown Rx cephALEXin [Keflex] 500 mg PO Q8HR #28 cap 05/16/18 Unknown Rx Ibuprofen [Motrin] 800 mg PO Q8HR PRN #30 tablet 10/27/18 Unknown Rx Permethrin 5% [Acticin 5% CREAM] 1 applicatio TP ONCE #2 tube 10/27/18 Unknown Rx ED Physical Exam - General Limitations: No Limitations General appearance: alert, in no apparent distress - Head Head exam: Present: atraumatic, normocephalic - ENT ENT exam: Present: mucous membranes moist - Respiratory Respiratory exam: Present: normal lung sounds bilaterally. Absent: respiratory distress, wheezes, rales, rhonchi, stridor, chest wall tenderness, accessory muscle use, decreased breath sounds, prolonged expiratory - Cardiovascular Cardiovascular Exam: Present: regular rate, normal rhythm, normal heart sounds. Absent: systolic murmur, diastolic murmur, rubs, gallop - Neurological Exam Neurological exam: Present: alert, oriented X3, CN II-XII intact, normal gait. Absent: motor sensory deficit - Psychiatric Psychiatric exam: Present: normal affect, normal mood ED Course Vital Signs 10/31/18 10/31/18 10:18 12:10 Temperature 97.8 F Pulse Rate 63 Respiratory 20 16 Rate Blood Pressure 125/75 [Right] O2 Sat by Pulse 98 Oximetry ED Medical Decision Making - Medical Decision Making Patient is a 58-year-old female who presents to the emergency room with complaints of not taking her medication. States she was in the emergency room last night and did not take her seizure medication last night or this morning. Pt states she takes vempat for her seizures. she states she feels like she is "going to have a seizure." She states she "started to go into one all she was in the emergency room but brought herself out of it." She does not report any symptoms currently. she states she has a mild SMITH and has a hx of migraines and is requesting something for her SMITH. PMHx of bipolar, schizophrenia, PTSD, HTN, DM. PCP: [facility] Dr. Jaime. pt has no focal neuro deficits on exam. pt given ibuprofen for her SMITH which resolved her symptoms. discussed with pt that once she returns home to please take her seizure medication at home. she states she does have the medication at home. spoke with Dr. Peyman Hopkins regarding pt who advised she could take her seizure medication at home and could be discharged home. advised pt to please take your seizure medication once you have returned home. follow up with your primary care doctor in the next 2-3 days. Return to the emergency room for any new or worsening symptoms. discussed to return if began to have seizure activity. Critical care attestation.: If time is entered above; I have spent that time in minutes in the direct care of this critically ill patient, excluding procedure time. ED Disposition Clinical Impression: Hx of seizure disorder Disposition: DC-01 TO HOME OR SELFCARE Is pt being admited?: No Does the pt Need Aspirin: No Condition: Stable Additional Instructions: Please take your seizure medication once you have returned home. follow up with your primary care doctor in the next 2-3 days. Return to the emergency room for any new or worsening symptoms. Referrals: BREONNA AYOUB MD [Primary Care Provider] - 2-3 Days Time of Disposition: 12:03 Print Language: MALIAN
[2018-10-31] MEDS ORDERED: IBUPROFEN PO ONE (12:05)
== END 2018-10-31 12:30 | disposition home or self-care (01) ==
LOC: ED 10:07
DX: G40.909 Epilepsy, unspecified, not intractable, without status epilepticus (principal); G43.909 Migraine, unspecified, not intractable, without status migrainosus; F31.9 Bipolar disorder, unspecified; F43.10 Post-traumatic stress disorder, unspecified; I10 Essential (primary) hypertension; E11.9 Type 2 diabetes mellitus without complications; J44.9 Chronic obstructive pulmonary disease, unspecified; E78.00 Pure hypercholesterolemia, unspecified; G47.30 Sleep apnea, unspecified; F20.0 Paranoid schizophrenia; Z79.4 Long term (current) use of insulin; Z88.1 Allergy status to other antibiotic agents; Z88.8 Allergy status to other drugs, medicaments and biological substances; Z79.899 Other long term (current) drug therapy; Z91.018 Allergy to other foods; Z88.2 Allergy status to sulfonamides; Z90.49 Acquired absence of other specified parts of digestive tract; Z90.710 Acquired absence of both cervix and uterus
CPT/HCPCS: 99283

== ENCOUNTER 2019-05-24 12:41 | Emergency (ER) | payer MEDICARE ==
--- NOTE | 2019-05-24 13:43 | Emergency Department Report ---
- General Chief complaint: Weakness Stated complaint: GENERAL WEAKNESS Time Seen by Provider: 05/24/19 13:35 Source: patient, family, EMS Mode of arrival: Wheelchair Limitations: No Limitations - History of Present Illness Initial comments: This is a [age]-year-old patient here complaining that she cannot eat. Patient reports that she has a history of diabetes, seizures and hypertension. Denies any alcohol or drug use. She said that this is been going on for about a week and denies any weight loss. Patient reports that her doctors at [facility] and that she saw a couple weeks ago. Denies any chest pain, shortness of breath, abdominal pain or back pain. Denies any urinary burning, frequency or urgency. Denies any nausea or vomiting. Denies any headache, dizziness. Denies any fever or chills. MD Complaint: lack of energy (due to decreased appetite) Onset/Timin -: week(s) Severity scale (0 -10): 0 Associated Symptoms: loss of appetite. denies: chest pain, confusion, dark stools, diaphoresis, dysuria, easy bruising, fever/chills, headaches, nausea/vomiting, myalgias, rash, shortness of breath, syncope - Related Data Home Medications Medication Instructions Recorded Confirmed Last Taken FLUoxetine HCL [PROzac] 40 mg PO QDAY 07/07/15 10/15/15 06/07/15 Gabapentin 300 mg PO BID 07/07/15 10/15/15 06/07/15 Haloperidol Decanoate [Haldol 100 mg IM QMONTH 07/07/15 10/15/15 06/07/15 Decanoate] Insulin Glargine [Lantus VIAL] 15 units SQ QHS 07/07/15 10/15/15 06/07/15 Insulin Lispro Protamin/Lispro 8 units SQ TID 07/07/15 10/15/15 06/07/15 [HumaLOG Mix 50-50 Kwikpen] Losartan [Cozaar] 60 mg PO BID 07/07/15 10/15/15 06/07/15 Topiramate [Topamax] 200 mg PO BID 07/07/15 10/15/15 06/07/15 hydrOXYzine PAMOATE [Vistaril] 25 mg PO QDAY 07/07/15 10/15/15 06/07/15 Haldol 10 mg PO BID 10/15/15 10/15/15 Unknown Januvia 100 mg PO DAILY 10/15/15 10/15/15 Unknown Lipitor 40 mg PO HS 10/15/15 10/15/15 Unknown Temazepam 15 mg PO HS 10/15/15 10/15/15 Unknown Previous Rx's Medication Instructions Recorded Last Taken Type Ibuprofen [Motrin] 600 mg PO Q8H PRN #30 tablet 04/26/17 Unknown Rx traMADoL [Ultram 50 MG tab] 50 mg PO Q6HR PRN #20 tablet 04/26/17 Unknown Rx Albuterol INH(or & Nicu Only) 2 puff IH QID PRN #1 inhalation 09/19/17 Unknown Rx [ProAir HFA Inhaler] Azithromycin [Zithromax Z-TIFFANIE] 250 mg PO DAILY #6 tablet 09/19/17 Unknown Rx Benzonatate [Tessalon Perle] 100 mg PO TID #12 capsule 09/19/17 Unknown Rx HYDROcodone/APAP 5-325 [[place] 1 each PO Q4HR PRN #12 tablet 09/19/17 Unknown Rx 5/325] Ondansetron [Zofran Odt] 4 mg PO Q8HR PRN #14 tab.rapdis 05/16/18 Unknown Rx cephALEXin [Keflex] 500 mg PO Q8HR #28 cap 05/16/18 Unknown Rx Ibuprofen [Motrin] 800 mg PO Q8HR PRN #30 tablet 10/27/18 Unknown Rx Permethrin 5% [Acticin 5% CREAM] 1 applicatio TP ONCE #2 tube 10/27/18 Unknown Rx Allergies Allergy/AdvReac Type Severity Reaction Status Date / Time ciprofloxacin HCl Allergy Rash Verified 10/31/18 10:20 [From Cipro] erythromycin base Allergy Rash Verified 10/31/18 10:20 [Erythromycin Base] lithium [[place]] Allergy Headache Verified 10/31/18 10:20 nitrofurantoin Allergy Hives Verified 10/31/18 10:20 macrocrystalline [From Macrodantin] sulfamethoxazole Allergy Hives Verified 10/31/18 10:20 [From Bactrim] trimethoprim [From Bactrim] Allergy Hives Verified 10/31/18 10:20 orange juice AdvReac MOUTH SORES Verified 07/03/19 10:20 pineapple AdvReac MOUTH SORES Verified 10/31/18 10:20 mushrooms Allergy Swelling Uncoded 09/19/17 11:42 ED Review of Systems ROS: Stated complaint: GENERAL WEAKNESS Other details as noted in HPI Constitutional: denies: chills, fever ENT: denies: throat pain, congestion Respiratory: denies: cough, shortness of breath, wheezing Cardiovascular: denies: chest pain, palpitations, edema, syncope Gastrointestinal: denies: abdominal pain, nausea, vomiting, constipation, hematemesis, hematochezia Genitourinary: denies: urgency Musculoskeletal: denies: back pain, joint swelling, arthralgia, myalgia Skin: denies: rash Neurological: denies: headache, numbness, paresthesias ED Past Medical Hx - Past Medical History Previous Medical History?: Yes Hx Hypertension: Yes Hx Diabetes: Yes Hx Seizures: Yes (AUGUST 2018) Hx Psychiatric Treatment: Yes ([place], [place], etc.) Hx Asthma: Yes Hx COPD: Yes Hx Dementia: Yes Additional medical history: HIGH CHOLESTEROL, paranoid schizophrenia, PTSD, psychosis. SLEEP APNEA - Surgical History Past Surgical History?: Yes Hx Cholecystectomy: Yes Hx Appendectomy: Yes Additional Surgical History: HYSTERECTOMY, knee surgery,TONSILLECTOMY - Family History Family history: hypertension - Social History Smoking Status: Never Smoker Substance Use Type: None - Medications Home Medications: Home Medications Medication Instructions Recorded Confirmed Last Taken Type FLUoxetine HCL [PROzac] 40 mg PO QDAY 07/07/15 10/15/15 06/07/15 History Gabapentin 300 mg PO BID 07/07/15 10/15/15 06/07/15 History Haloperidol Decanoate [Haldol 100 mg IM QMONTH 07/07/15 10/15/15 06/07/15 History Decanoate] Insulin Glargine [Lantus VIAL] 15 units SQ QHS 07/07/15 10/15/15 06/07/15 History Insulin Lispro Protamin/Lispro 8 units SQ TID 07/07/15 10/15/15 06/07/15 History [HumaLOG Mix 50-50 Kwikpen] Losartan [Cozaar] 60 mg PO BID 07/07/15 10/15/15 06/07/15 History Topiramate [Topamax] 200 mg PO BID 07/07/15 10/15/15 06/07/15 History hydrOXYzine PAMOATE [Vistaril] 25 mg PO QDAY 07/07/15 10/15/15 06/07/15 History Haldol 10 mg PO BID 10/15/15 10/15/15 Unknown History Januvia 100 mg PO DAILY 10/15/15 10/15/15 Unknown History Lipitor 40 mg PO HS 10/15/15 10/15/15 Unknown History Temazepam 15 mg PO HS 10/15/15 10/15/15 Unknown History Ibuprofen [Motrin] 600 mg PO Q8H PRN #30 tablet 04/26/17 Unknown Rx traMADoL [Ultram 50 MG tab] 50 mg PO Q6HR PRN #20 tablet 04/26/17 Unknown Rx Albuterol INH(or & Nicu Only) 2 puff IH QID PRN #1 inhalation 09/19/17 Unknown Rx [ProAir HFA Inhaler] Azithromycin [Zithromax Z-TIFFANIE] 250 mg PO DAILY #6 tablet 09/19/17 Unknown Rx Benzonatate [Tessalon Perle] 100 mg PO TID #12 capsule 09/19/17 Unknown Rx HYDROcodone/APAP 5-325 [[place] 1 each PO Q4HR PRN #12 tablet 09/19/17 Unknown Rx 5/325] Ondansetron [Zofran Odt] 4 mg PO Q8HR PRN #14 tab.rapdis 05/16/18 Unknown Rx cephALEXin [Keflex] 500 mg PO Q8HR #28 cap 05/16/18 Unknown Rx Ibuprofen [Motrin] 800 mg PO Q8HR PRN #30 tablet 10/27/18 Unknown Rx Permethrin 5% [Acticin 5% CREAM] 1 applicatio TP ONCE #2 tube 10/27/18 Unknown Rx ED Physical Exam - General Limitations: No Limitations General appearance: alert, in no apparent distress - Head Head exam: Present: atraumatic, normocephalic - Eye Eye exam: Present: normal appearance, PERRL, EOMI Pupils: Present: normal accommodation - ENT ENT exam: Present: normal exam, normal orophraynx, mucous membranes moist - Neck Neck exam: Present: normal inspection, full ROM. Absent: tenderness, lymphadenopathy - Respiratory Respiratory exam: Present: normal lung sounds bilaterally. Absent: respiratory distress, chest wall tenderness - Cardiovascular Cardiovascular Exam: Present: regular rate, normal rhythm, normal heart sounds - GI/Abdominal GI/Abdominal exam: Present: soft, normal bowel sounds. Absent: distended, tenderness, guarding, rebound, rigid, organomegaly, mass - Extremities Exam Extremities exam: Present: normal inspection, full ROM, normal capillary refill, other (No cce. + 2 pulses in all extremities, no neurovascular compromise). Absent: tenderness, pedal edema, joint swelling, calf tenderness - Back Exam Back exam: Present: normal inspection, full ROM, other (ambulates without any difficulties). Absent: tenderness, CVA tenderness (R), CVA tenderness (L), paraspinal tenderness, vertebral tenderness, rash noted - Neurological Exam Neurological exam: Present: alert, oriented X3, normal gait - Expanded Neurological Exam Expanded Patient oriented to: Present: person, place, time Speech: Present: fluid speech Cerebellar function: Romberg: Normal Upper motor neuron: Pronator Drift: Normal, Sensory Extinction: Normal - Psychiatric Psychiatric exam: Present: normal affect, normal mood - Skin Skin exam: Present: warm, dry, intact, normal color. Absent: rash ED Course Vital Signs 05/24/19 05/24/19 05/24/19 12:49 12:50 12:58 Temperature 97.8 F Pulse Rate 85 79 Respiratory 16 16 Rate Blood Pressure 114/77 114/77 Blood Pressure 123/77 [Left] O2 Sat by Pulse 97 95 98 Oximetry 05/24/19 05/24/19 05/24/19 13:00 13:15 13:30 Temperature Pulse Rate 83 79 Respiratory 19 16 12 Rate Blood Pressure 123/77 119/78 112/73 Blood Pressure [Left] O2 Sat by Pulse 95 96 94 Oximetry 05/24/19 05/24/19 05/24/19 13:45 14:00 14:30 Temperature Pulse Rate 77 74 72 Respiratory 13 10 L 11 L Rate Blood Pressure 119/68 129/64 136/80 Blood Pressure [Left] O2 Sat by Pulse 93 95 97 Oximetry 05/24/19 05/24/19 05/24/19 14:50 15:00 15:16 Temperature Pulse Rate 91 H 71 76 Respiratory 20 15 15 Rate Blood Pressure 136/80 116/67 144/69 Blood Pressure [Left] O2 Sat by Pulse 99 96 98 Oximetry 05/24/19 05/24/19 05/24/19 15:30 15:45 16:16 Temperature Pulse Rate 73 73 69 Respiratory 12 17 Rate Blood Pressure 127/77 122/82 122/82 Blood Pressure [Left] O2 Sat by Pulse 98 96 100 Oximetry 05/24/19 05/24/19 05/24/19 16:30 16:46 17:00 Temperature Pulse Rate Respiratory Rate Blood Pressure 132/75 139/80 139/79 Blood Pressure [Left] O2 Sat by Pulse 93 95 83 L Oximetry - Reevaluation(s) Reevaluation #1: 05/24/19 16:01 Patient stable. Labs stable . Awaiting urinalysis Reevaluation #2: 05/24/19 18:00 Patient's stable and urine is stable. She is discharged home ED Medical Decision Making - Lab Data Result diagrams: 05/24/19 13:52 05/24/19 13:52 Lab Results 05/24/19 05/24/19 05/24/19 Range/Units 13:52 13:52 13:52 WBC 7.8 (4.5-11.0) K/mm3 RBC 4.57 (3.65-5.03) M/mm3 Hgb 13.1 (10.1-14.3) gm/dl Hct 39.1 (30.3-42.9) % MCV 86 (79-97) fl MCH 29 (28-32) pg MCHC 33 (30-34) % RDW 13.6 (13.2-15.2) % Plt Count 288 (140-440) K/mm3 Lymph % (Auto) 35.7 H (13.4-35.0) % [place] % (Auto) 5.1 (0.0-7.3) % Eos % (Auto) 3.6 (0.0-4.3) % Baso % (Auto) 0.3 (0.0-1.8) % Lymph # 2.8 (1.2-5.4) K/mm3 [place] # 0.4 (0.0-0.8) K/mm3 Eos # 0.3 (0.0-0.4) K/mm3 Baso # 0.0 (0.0-0.1) K/mm3 Seg Neutrophils % 55.3 (40.0-70.0) % Seg Neutrophils # 4.3 (1.8-7.7) K/mm3 Sodium 136 L (137-145) mmol/L Potassium 4.3 (3.6-5.0) mmol/L Chloride 103.0 (98-107) mmol/L Carbon Dioxide 20 L (22-30) mmol/L Anion Gap 17 mmol/L BUN 25 H (7-17) mg/dL Creatinine 0.9 (0.7-1.2) mg/dL Estimated GFR > 60 ml/min BUN/Creatinine Ratio 28 % Glucose 298 H (65-100) mg/dL POC Glucose (70-105) Calcium 9.1 (8.4-10.2) mg/dL Total Bilirubin < 0.20 (0.1-1.2) mg/dL AST 18 (5-40) units/L ALT 15 (7-56) units/L Alkaline Phosphatase 69 (35-129) units/L Troponin T < 0.010 (0.00-0.029) ng/mL Total Protein 6.7 (6.3-8.2) g/dL Albumin 3.6 L (3.9-5) g/dL Albumin/Globulin Ratio 1.2 % Urine Color (Yellow) Urine Turbidity (Clear) Urine pH (5.0-7.0) Ur Specific [place] (1.003-1.030) Urine Protein (Negative) mg/dL Urine Glucose (UA) (Negative) mg/dL Urine Ketones (Negative) mg/dL Urine Blood (Negative) Urine Nitrite (Negative) Ur Reducing Substances Urine Bilirubin (Negative) Urine Ictotest Urine Urobilinogen (<2.0) mg/dL Ur Leukocyte Esterase (Negative) Urine WBC (Auto) (0.0-6.0) /HPF Urine RBC (Auto) (0.0-6.0) /HPF U Epithel Cells (Auto) (0-13.0) /HPF Urine Mucus /HPF Urine Opiates Screen Urine Methadone Screen Ur Barbiturates Screen Ur Phencyclidine Scrn Ur Amphetamines Screen U Benzodiazepines Scrn Urine Cocaine Screen U Marijuana (THC) Screen Drugs of Abuse Note 05/24/19 05/24/19 05/24/19 Range/Units 15:15 Unknown Unknown WBC (4.5-11.0) K/mm3 RBC (3.65-5.03) M/mm3 Hgb (10.1-14.3) gm/dl Hct (30.3-42.9) % MCV (79-97) fl MCH (28-32) pg MCHC (30-34) % RDW (13.2-15.2) % Plt Count (140-440) K/mm3 Lymph % (Auto) (13.4-35.0) % [place] % (Auto) (0.0-7.3) % Eos % (Auto) (0.0-4.3) % Baso % (Auto) (0.0-1.8) % Lymph # (1.2-5.4) K/mm3 [place] # (0.0-0.8) K/mm3 Eos # (0.0-0.4) K/mm3 Baso # (0.0-0.1) K/mm3 Seg Neutrophils % (40.0-70.0) % Seg Neutrophils # (1.8-7.7) K/mm3 Sodium (137-145) mmol/L Potassium (3.6-5.0) mmol/L Chloride (98-107) mmol/L Carbon Dioxide (22-30) mmol/L Anion Gap mmol/L BUN (7-17) mg/dL Creatinine (0.7-1.2) mg/dL Estimated GFR ml/min BUN/Creatinine Ratio % Glucose (65-100) mg/dL POC Glucose 279 H (70-105) Calcium (8.4-10.2) mg/dL Total Bilirubin (0.1-1.2) mg/dL AST (5-40) units/L ALT (7-56) units/L Alkaline Phosphatase (35-129) units/L Troponin T (0.00-0.029) ng/mL Total Protein (6.3-8.2) g/dL Albumin (3.9-5) g/dL Albumin/Globulin Ratio % Urine Color Yellow (Yellow) Urine Turbidity Clear (Clear) Urine pH 6.0 (5.0-7.0) Ur Specific [place] 1.017 (1.003-1.030) Urine Protein <15 mg/dl (Negative) mg/dL Urine Glucose (UA) 50 (Negative) mg/dL Urine Ketones Neg (Negative) mg/dL Urine Blood Neg (Negative) Urine Nitrite Neg (Negative) Ur Reducing Substances Not Reportable Urine Bilirubin Neg (Negative) Urine Ictotest Not Reportable Urine Urobilinogen < 2.0 (<2.0) mg/dL Ur Leukocyte Esterase Neg (Negative) Urine WBC (Auto) 1.0 (0.0-6.0) /HPF Urine RBC (Auto) 2.0 (0.0-6.0) /HPF U Epithel Cells (Auto) < 1.0 (0-13.0) /HPF Urine Mucus Few /HPF Urine Opiates Screen Presumptive negative Urine Methadone Screen Presumptive positive Ur Barbiturates Screen Presumptive negative Ur Phencyclidine Scrn Presumptive negative Ur Amphetamines Screen Presumptive negative U Benzodiazepines Scrn Presumptive negative Urine Cocaine Screen Presumptive negative U Marijuana (THC) Screen Presumptive negative Drugs of Abuse Note Disclamer - EKG Data -: EKG Interpreted by Me (attending physician) EKG shows normal: sinus rhythm Rate: normal - Radiology Data Radiology results: report reviewed CHEST XRAY DICTATED BY RADIOLOGIST AND REPORT REVIEWD BY MY SELF.See below for details Findings [facility] [address] [place] [address] XRay Report Signed Patient: EVELIA VILLANUEVA MR#: [id number] : 1960 Acct:[id number] Age/Sex: 59 / F ADM Date: 05/24/19 Loc: ED Attending Dr: Ordering Physician: FAN CASTREJON Date of Service: 05/24/19 Procedure(s): XR chest 1V ap Accession Number(s): [id number] cc: FAN CASTREJON Fluoro Time In Minutes: CHEST 1 VIEW 05/24/2019 2:48 PM INDICATION / CLINICAL INFORMATION: generalized weakness. COMPARISON: One view of the chest from 10/31/2018. FINDINGS: SUPPORT DEVICES: None. HEART / MEDIASTINUM: No significant abnormality. LUNGS / PLEURA: No significant pulmonary or pleural abnormality. No pneumothorax. ADDITIONAL FINDINGS: No significant additional findings. IMPRESSION: 1. No acute abnormality of the chest. Signer Name: Tuan Rosenthal MD Signed: 05/24/2019 3:10 PM Workstation Name: [id number] Transcribed By: MN Dictated By: Tuan Rosenthal MD Electronically Authenticated By: Tuan Rosenthal MD Signed Date/Time: 05/24/19 1510 DD/ 1509 TD/TT: Critical care attestation.: If time is entered above; I have spent that time in minutes in the direct care of this critically ill patient, excluding procedure time. ED Disposition Clinical Impression: Decreased appetite Disposition: DC-01 TO HOME OR SELFCARE Is pt being admited?: No Does the pt Need Aspirin: No Condition: Stable Instructions: Normal Exam (ED) Additional Instructions: Please follow up with [facility] in 3 days If he condition worsens, return to the emergency room Referrals: PRIMARY MD CHRISTINA [Primary Care Provider] - 05/27/19
[2019-05-24] MEDS ORDERED: SODIUM CHLORIDE 0.9% 1000 ML 1,000 ML IV ONE (13:49)
[2019-05-24 14:15] LABS: Basophils % (Auto) 0.3 % (0.0-1.8); Eosinophils # (Auto) 0.3 K/mm3 (0.0-0.4); Eosinophils % (Auto) 3.6 % (0.0-4.3); Hematocrit 39.1 % (30.3-42.9); Hemoglobin 13.1 gm/dl (10.1-14.3); Lymphocytes # (Auto) 2.8 K/mm3 (1.2-5.4); Lymphocytes % (Auto) 35.7 % (13.4-35.0); Mean Corpuscular HGB Conc 33 % (30-34); Mean Corpuscular Volume 86 fl (79-97); Monocytes # (Auto) 0.4 K/mm3 (0.0-0.8); Monocytes % (Auto) 5.1 % (0.0-7.3); Platelet Count 288 K/mm3 (140-440); Red Blood Count 4.57 M/mm3 (3.65-5.03); Red Cell Distribution Width 13.6 % (13.2-15.2)
[2019-05-24 14:41] LABS: Alanine Aminotransferase 15 units/L (7-56); Albumin 3.6 g/dL (3.9-5); BUN/Creatinine Ratio 28; Blood Urea Nitrogen 25 mg/dL (7-17); Calcium 9.1 mg/dL (8.4-10.2); Hemolysis Index 9
--- NOTE | 2019-05-24 15:14 | XRay Report ---
CHEST 1 VIEW 05/24/2019 2:48 PM INDICATION / CLINICAL INFORMATION: generalized weakness. COMPARISON: One view of the chest from 10/31/2018. FINDINGS: SUPPORT DEVICES: None. HEART / MEDIASTINUM: No significant abnormality. LUNGS / PLEURA: No significant pulmonary or pleural abnormality. No pneumothorax. ADDITIONAL FINDINGS: No significant additional findings. IMPRESSION: 1. No acute abnormality of the chest. Signer Name: Tuan Rosenthal MD Signed: 05/24/2019 3:10 PM Workstation Name: [id number]
[2019-05-24 17:01] LABS: Mucus,Urine FEW /HPF
[2019-05-24 17:02] LABS: Bilirubin,Urine NEG (Negative); Blood,Urine NEG (Negative); Color,Urine Yellow (Yellow); Protein,Urine <15 mg/dL mg/dL (Negative); Urobilinogen,Urine < 2.0 mg/dL (<2.0)
[2019-05-24 17:26] LABS: Amphetamine Screen,Urine PRESUMPTIVE NEGATIVE; Benzodiazepines Screen,Urine PRESUMPTIVE NEGATIVE; Cannabinoid Screen,Urine PRESUMPTIVE NEGATIVE; Cocaine Screen,Urine PRESUMPTIVE NEGATIVE; Opiate Screen,Urine PRESUMPTIVE NEGATIVE
[2019-05-24 17:40] LABS: Methadone Screen,Urine PRESUMPTIVE POSITIVE
[2019-05-24 20:01] VITALS: BP 138/69
== END 2019-05-24 19:40 | disposition home or self-care (01) ==
LOC: ED 12:41
DX: R63.0 Anorexia (principal); I10 Essential (primary) hypertension; E11.9 Type 2 diabetes mellitus without complications; J44.9 Chronic obstructive pulmonary disease, unspecified; F03.90 Unspecified dementia, unspecified severity, without behavioral disturbance, psychotic disturbance, mood disturbance, and anxiety; E78.00 Pure hypercholesterolemia, unspecified; F20.0 Paranoid schizophrenia; F43.10 Post-traumatic stress disorder, unspecified; F23 Brief psychotic disorder; Z90.710 Acquired absence of both cervix and uterus; Z79.899 Other long term (current) drug therapy; Z90.89 Acquired absence of other organs; Z88.1 Allergy status to other antibiotic agents; Z88.2 Allergy status to sulfonamides; Z91.018 Allergy to other foods
CPT/HCPCS: 36415; 71045; 80053; 80307; 81001; 82962; 84484; 85025; 93005; 93010; 99284; J7030; 96360

== ENCOUNTER 2019-05-28 12:52 | Emergency (ER) | payer MEDICARE ==
[2019-05-28 14:31] LABS: Basophils % (Auto) 0.2 % (0.0-1.8); Eosinophils # (Auto) 0.2 K/mm3 (0.0-0.4); Eosinophils % (Auto) 2.2 % (0.0-4.3); Hematocrit 39.8 % (30.3-42.9); Hemoglobin 13.9 gm/dl (10.1-14.3); Lymphocytes % (Auto) 37.5 % (13.4-35.0); Mean Corpuscular HGB Conc 35 % (30-34); Mean Corpuscular Volume 84 fl (79-97); Monocytes # (Auto) 0.4 K/mm3 (0.0-0.8); Platelet Count 282 K/mm3 (140-440); Red Blood Count 4.75 M/mm3 (3.65-5.03)
[2019-05-28 14:35] LABS: Red Cell Distribution Width 13.3 % (13.2-15.2)
[2019-05-28 14:47] LABS: Alanine Aminotransferase 23 units/L (7-56); Albumin 4.1 g/dL (3.9-5); BUN/Creatinine Ratio 27; Blood Urea Nitrogen 24 mg/dL (7-17); Calcium 9.3 mg/dL (8.4-10.2); Hemolysis Index 21
[2019-05-28 17:16] LABS: Bilirubin,Urine NEG (Negative); Blood,Urine NEG (Negative); Color,Urine Yellow (Yellow); Mucus,Urine 3+ /HPF; Protein,Urine <15 mg/dL mg/dL (Negative); Urobilinogen,Urine < 2.0 mg/dL (<2.0)
--- NOTE | 2019-05-28 17:41 | Emergency Department Report ---
ED Fall HPI - General Chief Complaint: Fall Stated Complaint: GENERAL WEAKNESS/FALL Time Seen by Provider: 05/28/19 15:27 Source: patient Mode of arrival: Ambulatory Limitations: No Limitations - History of Present Illness Initial Comments: This is a 59-year-old female who presents to the emergency room with headache, left hip pain, with loss of consciousness. Patient states she was given in its up this morning to take a shower when she slipped and fell hitting her head on the toilet. Patient's states he found her passed out. Rubén beckford denies nausea or vomiting, swelling or bruising, numbness or tingling, weakness, slurred speech. Complaint: fall -: This morning Fall From: standing When Fall Occurred: 4-6 hours [employer]IOR [employer] DEVEL[employer] Fall Witnessed: no Place Fall Occurred: home Loss of Consciousness: yes Prolonged Down Time?: unclear Symptoms Prior to Fall: none Location: head Location - Extremities: Left: Thigh (left hip) Severity: moderate Severity scale (0 -10): 7 Quality: aching Context: tripped/slipped Associated Symptoms: headache. denies: neck pain, numbness, weakness, chest paint, shortness of breath, abdominal pain, lightheaded, confusion - Related Data Home Medications Medication Instructions Recorded Confirmed Last Taken FLUoxetine HCL [PROzac] 40 mg PO QDAY 07/07/15 10/15/15 06/07/15 Gabapentin 300 mg PO BID 07/07/15 10/15/15 06/07/15 Haloperidol Decanoate [Haldol 100 mg IM QMONTH 07/07/15 10/15/15 06/07/15 Decanoate] Insulin Glargine [Lantus VIAL] 15 units SQ QHS 07/07/15 10/15/15 06/07/15 Insulin Lispro Protamin/Lispro 8 units SQ TID 07/07/15 10/15/15 06/07/15 [HumaLOG Mix 50-50 Kwikpen] Losartan [Cozaar] 60 mg PO BID 07/07/15 10/15/15 06/07/15 Topiramate [Topamax] 200 mg PO BID 07/07/15 10/15/15 06/07/15 hydrOXYzine PAMOATE [Vistaril] 25 mg PO QDAY 07/07/15 10/15/15 06/07/15 Haldol 10 mg PO BID 10/15/15 10/15/15 Unknown Januvia 100 mg PO DAILY 10/15/15 10/15/15 Unknown Lipitor 40 mg PO HS 10/15/15 10/15/15 Unknown Temazepam 15 mg PO HS 10/15/15 10/15/15 Unknown Previous Rx's Medication Instructions Recorded Last Taken Type Ibuprofen [Motrin] 600 mg PO Q8H PRN #30 tablet 04/26/17 Unknown Rx traMADoL [Ultram 50 MG tab] 50 mg PO Q6HR PRN #20 tablet 04/26/17 Unknown Rx Albuterol INH(or & Nicu Only) 2 puff IH QID PRN #1 inhalation 09/19/17 Unknown Rx [ProAir HFA Inhaler] Azithromycin [Zithromax Z-TIFFANIE] 250 mg PO DAILY #6 tablet 09/19/17 Unknown Rx Benzonatate [Tessalon Perle] 100 mg PO TID #12 capsule 09/19/17 Unknown Rx HYDROcodone/APAP 5-325 [[place] 1 each PO Q4HR PRN #12 tablet 09/19/17 Unknown Rx 5/325] Ondansetron [Zofran Odt] 4 mg PO Q8HR PRN #14 tab.rapdis 05/16/18 Unknown Rx cephALEXin [Keflex] 500 mg PO Q8HR #28 cap 05/16/18 Unknown Rx Ibuprofen [Motrin] 800 mg PO Q8HR PRN #30 tablet 10/27/18 Unknown Rx Permethrin 5% [Acticin 5% CREAM] 1 applicatio TP ONCE #2 tube 10/27/18 Unknown Rx Allergies Allergy/AdvReac Type Severity Reaction Status Date / Time ciprofloxacin HCl Allergy Rash Verified 10/31/18 10:20 [From Cipro] erythromycin base Allergy Rash Verified 10/31/18 10:20 [Erythromycin Base] lithium [[place]] Allergy Headache Verified 10/31/18 10:20 nitrofurantoin Allergy Hives Verified 10/31/18 10:20 macrocrystalline [From Macrodantin] sulfamethoxazole Allergy Hives Verified 10/31/18 10:20 [From Bactrim] trimethoprim [From Bactrim] Allergy Hives Verified 10/31/18 10:20 orange juice AdvReac MOUTH SORES Verified 10/31/18 10:20 pineapple AdvReac MOUTH SORES Verified 10/31/18 10:20 mushrooms Allergy Swelling Uncoded 09/19/17 11:42 ED Review of Systems ROS: Stated complaint: GENERAL WEAKNESS/FALL Other details as noted in HPI Constitutional: denies: chills, fever Respiratory: denies: cough, shortness of breath, wheezing Cardiovascular: denies: chest pain, palpitations Gastrointestinal: denies: abdominal pain, nausea, diarrhea Musculoskeletal: arthralgia (left hip pain). denies: back pain, joint swelling Skin: denies: rash, lesions Neurological: headache. denies: weakness, paresthesias Psychiatric: denies: anxiety, depression ED Past Medical Hx - Past Medical History Hx Hypertension: Yes Hx Diabetes: Yes Hx Seizures: Yes (AUGUST 2018) Hx Psychiatric Treatment: Yes ([place], [place], etc.) Hx Asthma: Yes Hx COPD: Yes Hx Dementia: Yes Additional medical history: HIGH CHOLESTEROL, paranoid schizophrenia, PTSD, psychosis. SLEEP APNEA - Surgical History Hx Cholecystectomy: Yes Hx Appendectomy: Yes Additional Surgical History: HYSTERECTOMY, knee surgery,TONSILLECTOMY - Social History Smoking Status: Never Smoker Substance Use Type: None - Medications Home Medications: Home Medications Medication Instructions Recorded Confirmed Last Taken Type FLUoxetine HCL [PROzac] 40 mg PO QDAY 07/07/15 10/15/15 06/07/15 History Gabapentin 300 mg PO BID 07/07/15 10/15/15 06/07/15 History Haloperidol Decanoate [Haldol 100 mg IM QMONTH 07/07/15 10/15/15 06/07/15 History Decanoate] Insulin Glargine [Lantus VIAL] 15 units SQ QHS 07/07/15 10/15/15 06/07/15 History Insulin Lispro Protamin/Lispro 8 units SQ TID 07/07/15 10/15/15 06/07/15 History [HumaLOG Mix 50-50 Kwikpen] Losartan [Cozaar] 60 mg PO BID 07/07/15 10/15/15 06/07/15 History Topiramate [Topamax] 200 mg PO BID 07/07/15 10/15/15 06/07/15 History hydrOXYzine PAMOATE [Vistaril] 25 mg PO QDAY 03/12/1410/15/15 06/07/15 History Haldol 10 mg PO BID 10/15/15 10/15/15 Unknown History Januvia 100 mg PO DAILY 10/15/15 10/15/15 Unknown History Lipitor 40 mg PO HS 10/15/15 10/15/15 Unknown History Temazepam 15 mg PO HS 10/15/15 10/15/15 Unknown History Ibuprofen [Motrin] 600 mg PO Q8H PRN #30 tablet 04/26/17 Unknown Rx traMADoL [Ultram 50 MG tab] 50 mg PO Q6HR PRN #20 tablet 04/26/17 Unknown Rx Albuterol INH(or & Nicu Only) 2 puff IH QID PRN #1 inhalation 09/19/17 Unknown Rx [ProAir HFA Inhaler] Azithromycin [Zithromax Z-TIFFANIE] 250 mg PO DAILY #6 tablet 09/19/17 Unknown Rx Benzonatate [Tessalon Perle] 100 mg PO TID #12 capsule 09/19/17 Unknown Rx HYDROcodone/APAP 5-325 [[place] 1 each PO Q4HR PRN #12 tablet 09/19/17 Unknown Rx 5/325] Ondansetron [Zofran Odt] 4 mg PO Q8HR PRN #14 tab.rapdis 05/16/18 Unknown Rx cephALEXin [Keflex] 500 mg PO Q8HR #28 cap 05/16/18 Unknown Rx Ibuprofen [Motrin] 800 mg PO Q8HR PRN #30 tablet 10/27/18 Unknown Rx Permethrin 5% [Acticin 5% CREAM] 1 applicatio TP ONCE #2 tube 10/27/18 Unknown Rx ED Physical Exam - General Limitations: No Limitations General appearance: alert, in no apparent distress, obese (morbidly) - Head Head exam: Present: atraumatic, normocephalic - ENT ENT exam: Present: mucous membranes moist - Neck Neck exam: Present: normal inspection - Respiratory Respiratory exam: Present: normal lung sounds bilaterally. Absent: respiratory distress - Cardiovascular Cardiovascular Exam: Present: regular rate, normal rhythm. Absent: systolic murmur, diastolic murmur, rubs, gallop - GI/Abdominal GI/Abdominal exam: Present: soft, normal bowel sounds. Absent: distended, tenderness, guarding, rebound, rigid - Extremities Exam Extremities exam: Present: normal inspection - Expanded Lower Extremity Exam Left Hip exam: Present: tenderness (tenderness on palpation proximal femur head), crepidus. Absent: full ROM (Limited range of motion 2/2 pain), swelling, abrasion, laceration, ecchymosis, deformity, erythema Upper Leg exam: Present: normal inspection, full ROM Knee exam: Present: normal inspection, full ROM Lower Leg exam: Present: normal inspection, full ROM Ankle exam: Present: normal inspection, full ROM Foot/Toe exam: Present: normal inspection, full ROM Neuro vascular tendon exam: Present: no vascular compromise Gait: Positive: observed and limited by pain - Back Exam Back exam: Present: normal inspection - Neurological Exam Neurological exam: Present: alert, oriented X3 - Psychiatric Psychiatric exam: Present: normal affect, normal mood - Skin Skin exam: Present: warm, dry, intact, normal color. Absent: rash ED Course Vital Signs 05/28/19 05/28/19 13:22 19:40 Temperature 98.3 F Pulse Rate 85 81 Respiratory 16 18 Rate Blood Pressure 105/74 Blood Pressure 118/74 [Left] O2 Sat by Pulse 96 96 Oximetry ED Medical Decision Making - Lab Data Result diagrams: 05/28/19 14:10 05/28/19 14:10 Lab Results 05/28/19 05/28/19 05/28/19 Range/Units 14:10 14:10 Unknown WBC 7.9 (4.5-11.0) K/mm3 RBC 4.75 (3.65-5.03) M/mm3 Hgb 13.9 (10.1-14.3) gm/dl Hct 39.8 (30.3-42.9) % MCV 84 (79-97) fl MCH 29 (28-32) pg MCHC 35 H (30-34) % RDW 13.3 (13.2-15.2) % Plt Count 282 (140-440) K/mm3 Lymph % (Auto) 37.5 H (13.4-35.0) % [place] % (Auto) 5.0 (0.0-7.3) % Eos % (Auto) 2.2 (0.0-4.3) % Baso % (Auto) 0.2 (0.0-1.8) % Lymph # 3.0 (1.2-5.4) K/mm3 [place] # 0.4 (0.0-0.8) K/mm3 Eos # 0.2 (0.0-0.4) K/mm3 Baso # 0.0 (0.0-0.1) K/mm3 Seg Neutrophils % 55.1 (40.0-70.0) % Seg Neutrophils # 4.4 (1.8-7.7) K/mm3 Sodium 136 L (137-145) mmol/L Potassium 3.6 (3.6-5.0) mmol/L Chloride 100.9 (98-107) mmol/L Carbon Dioxide 22 (22-30) mmol/L Anion Gap 17 mmol/L BUN 24 H (7-17) mg/dL Creatinine 0.9 (0.7-1.2) mg/dL Estimated GFR > 60 ml/min BUN/Creatinine Ratio 27 % Glucose 294 H (65-100) mg/dL Calcium 9.3 (8.4-10.2) mg/dL Total Bilirubin 0.20 (0.1-1.2) mg/dL AST 29 (5-40) units/L ALT 23 (7-56) units/L Alkaline Phosphatase 82 (35-129) units/L Total Protein 7.5 (6.3-8.2) g/dL Albumin 4.1 (3.9-5) g/dL Albumin/Globulin Ratio 1.2 % Urine Color Yellow (Yellow) Urine Turbidity Cloudy (Clear) Urine pH 5.0 (5.0-7.0) Ur Specific [place] 1.014 (1.003-1.030) Urine Protein <15 mg/dl (Negative) mg/dL Urine Glucose (UA) Neg (Negative) mg/dL Urine Ketones Neg (Negative) mg/dL Urine Blood Neg (Negative) Urine Nitrite Neg (Negative) Urine Bilirubin Neg (Negative) Urine Urobilinogen < 2.0 (<2.0) mg/dL Ur Leukocyte Esterase Lg (Negative) Urine WBC (Auto) 53.0 H (0.0-6.0) /HPF Urine RBC (Auto) 138.0 (0.0-6.0) /HPF U Epithel Cells (Auto) 2.0 (0-13.0) /HPF Urine WBC Clumps 2+ /HPF Urine Mucus 3+ /HPF Urine Yeast (Budding) 3+ /HPF - Radiology Data Radiology results: report reviewed LEFT HIP 2 VIEWS INDICATION / CLINICAL INFORMATION: Fall with left hip pain. COMPARISON: None available. FINDINGS: BONES / JOINT(S): The hip and SI joint spaces are well-maintained. There is no evidence of fracture or dislocation. SOFT TISSUES: No significant abnormality. ADDITIONAL FINDINGS: None. IMPRESSION: No acute abnormality. CT HEAD WITHOUT CONTRAST INDICATION / CLINICAL INFORMATION: loc, headache. TECHNIQUE: All CT scans at this location are performed using CT dose reduction for ALARA by means of automated exposure control. COMPARISON: Head CT 10/31/2018 and 11/30/2017 FINDINGS: HEMORRHAGE: No evidence of intracranial hemorrhage or extra-axial fluid collection. EXTRA-AXIAL SPACES: Cortical sulci, sylvian fissures and basilar cisterns have an unremarkable appearance. VENTRICULAR SYSTEM: The ventricular system is of normal size and configuration. CEREBRAL PARENCHYMA: No areas of abnormal brain parenchymal attenuation are identified. There is no indication of recent infarction. MIDLINE SHIFT OR HERNIATION: There is no mass effect. CEREBELLUM / BRAINSTEM: Brainstem and cerebellum have an unremarkable appearance. INTRACRANIAL VESSELS:No abnormalities are identified on this noncontrast head CT. ORBITS: Patient is status post bilateral cataract surgery. No additional abnormalities are seen on evaluation of the orbits. SOFT TISSUES of HEAD: No significant abnormality. CALVARIUM: Hyperostosis frontalis interna is incidentally noted. PARANASAL SINUSES / MASTOID AIR CELLS: Paranasal sinuses are free from inflammatory mucosal disease. Mastoid air cells are normally pneumatized. IMPRESSION: 1. No significant intercranial abnormalities are identified on CT head without contrast. No interval change. - Medical Decision Making 59 y.o. female that presents with left hip pain, headache, and loc s/p slip and fall. Patient examined by me and stable. VSS and patient in no acute distress. No history of immunocompromise. Past medical history of diabetes type 2, hypertension and schizoaffective disorder. Nontoxic appearance. Labs obtained. CT of hated and x-ray of left hip pain. 1. No significant intercranial abnormalities are identified on CT head without contrast. No interval change. X-ray of left hip no acute findings. Slight glucose elevation. Patient instructed to take scheduled medication when she returns harm. Instructed to take [id number] NSAIDs for pain relief. Reviewed results with patient. Discharge home with prompt outpatient PCP follow up; return precautions discussed. Critical care attestation.: If time is entered above; I have spent that time in minutes in the direct care of this critically ill patient, excluding procedure time. ED Disposition Clinical Impression: Left hip pain Fall Qualifiers: Encounter type: initial encounter Qualified Code(s): W19.XXXA - Unspecified fall, initial encounter Headache Qualifiers: Headache type: tension-type Headache chronicity pattern: acute headache Intractability: not intractable Qualified Code(s): G44.209 - Tension-type headache, unspecified, not intractable Muscle strain of left hip Qualifiers: Encounter type: initial encounter Qualified Code(s): S76.012A - Strain of muscle, fascia and tendon of left hip, initial encounter Disposition: TO HOME OR SELFCARE Is pt being admited?: No Condition: Stable Instructions: Muscle Strain (ED), Fall Prevention for Older Adults (ED), Lumbar Radiculopathy (ED) Additional Instructions: Rest Use ice or heat on affected area for 20 minutes and off for 2 hours. Take pain medication as needed for pain. Follow up with Primary Care Provider in 2-3 days. Referrals: DANG FLOWERS MD [Staff Physician] - 3-5 Days [facility] [Provider Group] - 3-5 Days [facility] [Provider Group] - 3-5 Days Time of Disposition: 19:13
--- NOTE | 2019-05-28 18:15 | XRay Report ---
LEFT HIP 2 VIEWS INDICATION / CLINICAL INFORMATION: Fall with left hip pain. COMPARISON: None available. FINDINGS: BONES / JOINT(S): The hip and SI joint spaces are well-maintained. There is no evidence of fracture o r dislocation. SOFT TISSUES: No significant abnormality. ADDITIONAL FINDINGS: None. IMPRESSION: No acute abnormality. Signer Name: Howard Paula MD Signed: 05/28/2019 6:11 PM Workstation Name: [id number]
--- NOTE | 2019-05-28 19:00 | Cat Scan Report ---
CT HEAD WITHOUT CONTRAST INDICATION / CLINICAL INFORMATION: loc, headache. TECHNIQUE: All CT scans at this location are performed using CT dose reduction for ALARA by means of automated e xposure control. COMPARISON: Head CT 10/31/2018 and 11/30/2017 FINDINGS: HEMORRHAGE: No evidence of intracranial hemorrhage or extra-axial fluid collection. EXTRA-AXIAL SPACES: Cortical sulci, sylvian fissures and basilar cisterns have an unremarkable appear ance. VENTRICULAR SYSTEM: The ventricular system is of normal size and configuration. CEREBRAL PARENCHYMA: No areas of abnormal brain parenchymal attenuation are identified. There is no i ndication of recent infarction. MIDLINE SHIFT OR HERNIATION: There is no mass effect. CEREBELLUM / BRAINSTEM: Brainstem and cerebellum have an unremarkable appearance. INTRACRANIAL VESSELS:No abnormalities are identified on this noncontrast head CT. ORBITS: Patient is status post bilateral cataract surgery. No additional abnormalities are seen on ev aluation of the orbits. SOFT TISSUES of HEAD: No significant abnormality. CALVARIUM: Hyperostosis frontalis interna is incidentally noted. PARANASAL SINUSES / MASTOID AIR CELLS: Paranasal sinuses are free from inflammatory mucosal disease. Mastoid air cells are normally pneumatized. IMPRESSION: 1. No significant intercranial abnormalities are identified on CT head without contrast. No interval change. Signer Name: Pavan Jimenez MD Signed: 05/28/2019 6:56 PM Workstation Name: [id number]
[2019-05-28 20:52] VITALS: BP 118/74
== END 2019-05-28 19:40 | disposition home or self-care (01) ==
LOC: ED 12:52
DX: S76.012A Strain of muscle, fascia and tendon of left hip, initial encounter (principal); R51 Headache; I10 Essential (primary) hypertension; E11.9 Type 2 diabetes mellitus without complications; J45.909 Unspecified asthma, uncomplicated; F03.90 Unspecified dementia, unspecified severity, without behavioral disturbance, psychotic disturbance, mood disturbance, and anxiety; E78.00 Pure hypercholesterolemia, unspecified; Z90.89 Acquired absence of other organs; Z79.899 Other long term (current) drug therapy; Z88.8 Allergy status to other drugs, medicaments and biological substances; W01.198A Fall on same level from slipping, tripping and stumbling with subsequent striking against other object, initial encounter; Y93.89 Activity, other specified; Y92.009 Unspecified place in unspecified non-institutional (private) residence as the place of occurrence of the external cause; Y99.8 Other external cause status
CPT/HCPCS: 36415; 70450; 80053; 81001; 85025; 87086

== ENCOUNTER 2020-01-02 23:41 | Emergency (ER) | payer MEDICARE ==
[2020-01-02 23:54] VITALS: BP 119/71
--- NOTE | 2020-01-03 00:30 | XRay Report ---
Right foot 3 views INDICATION / CLINICAL INFORMATION: Right foot pain and swelling COMPARISON: None available. FINDINGS: BONES / JOINT(S): No acute fracture or subluxation. Suspect old injury at the base of the fifth metat arsal. Moderate bunion first metatarsal head. Mild/moderate DJD first metatarsophalangeal joint. Larg e calcaneal spur. DJD at the ankle. SOFT TISSUES: No significant abnormality. ADDITIONAL FINDINGS: None. Signer Name: Bryan Gregory MD Signed: 01/03/2020 12:25 AM Workstation Name: [id number]
--- NOTE | 2020-01-03 04:53 | Emergency Department Report ---
ED Lower Extremity HPI - General Chief Complaint: Extremity Injury, Lower Stated Complaint: RT FOOT PAIN Time Seen by Provider: 01/03/20 04:41 Source: patient Mode of arrival: Ambulatory Limitations: No Limitations - History of Present Illness Initial Comments: Patient is a 59-year-old female that presents emergency room with complaints of twisting her foot. Patient states it happened yesterday. Patient states the pain is worsening. Patient states that the pain is on the right lateral foot. Patient states she broke her foot back in September and it feels the same. Patient states the pain is a 9 out of 10. Patient states the pain is worse with movement and palpation. Patient states the pain is better with rest and elevation. Patient denies other injuries. Patient denies chest pain or shortness of breath./ patient denies fever and chills. Patient denies recent travel. Patient denies recent international travel. Patient denies exposure to the novel coronavirus. Patient denies sick contacts. Patient denies fever and chills. Patient denies cough. Patient denies diarrhea. Patient denies coming in contact with anybody with symptoms of the novel coronavirus. Complaint: foot injury -: Sudden Injury: Foot: Right Type of Injury: inversion Place: home Severity: severe Severity scale (0 -10): 9 Improves With: rest Worsens With: weight bearing, movement, palpation Context: walking Associated Symptoms: swelling, able to partially bear weight - Related Data Home Medications Medication Instructions Recorded Confirmed Last Taken FLUoxetine HCL [PROzac] 40 mg PO QDAY 07/07/15 10/15/15 06/07/15 Gabapentin 300 mg PO BID 07/07/15 10/15/15 06/07/15 Haloperidol Decanoate [Haldol 100 mg IM QMONTH 07/07/15 10/15/15 06/07/15 Decanoate] Insulin Glargine [Lantus VIAL] 15 units SQ QHS 07/07/15 10/15/15 06/07/15 Insulin Lispro Protamin/Lispro 8 units SQ TID 07/07/15 10/15/15 06/07/15 [HumaLOG Mix 50-50 Kwikpen] Losartan [Cozaar] 60 mg PO BID 07/07/15 10/15/15 06/07/15 Topiramate [Topamax] 200 mg PO BID 07/07/15 10/15/15 06/07/15 hydrOXYzine PAMOATE [Vistaril] 25 mg PO QDAY 07/07/15 10/15/15 06/07/15 Haldol 10 mg PO BID 10/15/15 10/15/15 Unknown Januvia 100 mg PO DAILY 10/15/15 10/15/15 Unknown Lipitor 40 mg PO HS 10/15/15 10/15/15 Unknown Temazepam 15 mg PO HS 10/15/15 10/15/15 Unknown Previous Rx's Medication Instructions Recorded Last Taken Type Ibuprofen [Motrin] 600 mg PO Q8H PRN #30 tablet 04/26/17 Unknown Rx Albuterol Mdi (or & Nicu Only) 2 puff IH QID PRN #1 inhalation 09/19/17 Unknown Rx [ProAir HFA Inhaler] Azithromycin [Zithromax Z-TIFFANIE] 250 mg PO DAILY #6 tablet 09/19/17 Unknown Rx Benzonatate [Tessalon Perle] 100 mg PO TID #12 capsule 09/19/17 Unknown Rx HYDROcodone/APAP 5-325 [[place] 1 each PO Q4HR PRN #12 tablet 09/19/17 Unknown Rx 5/325] Ondansetron [Zofran Odt] 4 mg PO Q8HR PRN #14 tab.rapdis 05/16/18 Unknown Rx cephALEXin [Keflex] 500 mg PO Q8HR #28 cap 05/16/18 Unknown Rx Ibuprofen [Motrin] 800 mg PO Q8HR PRN #30 tablet 10/27/18 Unknown Rx Permethrin 5% [Acticin 5% CREAM] 1 applicatio TP ONCE #2 tube 10/27/18 Unknown Rx traMADoL [Ultram 50 MG tab] 50 mg PO Q6HR PRN #10 tablet 01/03/20 Unknown Rx Allergies Allergy/AdvReac Type Severity Reaction Status Date / Time ciprofloxacin HCl Allergy Rash Verified 10/31/18 10:20 [From Cipro] erythromycin base Allergy Rash Verified 10/31/18 10:20 [Erythromycin Base] lithium [[place]] Allergy Headache Verified 10/31/18 10:20 nitrofurantoin Allergy Hives Verified 10/31/18 10:20 macrocrystalline [From Macrodantin] sulfamethoxazole Allergy Hives Verified 10/31/18 10:20 [From Bactrim] trimethoprim [From Bactrim] Allergy Hives Verified 10/31/18 10:20 orange juice AdvReac MOUTH SORES Verified 10/31/18 10:20 pineapple AdvReac MOUTH SORES Verified 10/31/18 10:20 mushrooms Allergy Swelling Uncoded 09/19/17 11:42 ED Review of Systems ROS: Stated complaint: RT FOOT PAIN Other details as noted in HPI Constitutional: denies: chills, fever Eyes: denies: eye pain, eye discharge, vision change ENT: denies: ear pain, throat pain Respiratory: denies: cough, shortness of breath, wheezing Cardiovascular: denies: chest pain, palpitations Endocrine: no symptoms reported Gastrointestinal: denies: abdominal pain, nausea, diarrhea Genitourinary: denies: urgency, dysuria, discharge Musculoskeletal: denies: back pain, joint swelling, arthralgia Skin: denies: rash, lesions Neurological: denies: headache, weakness, paresthesias Psychiatric: denies: anxiety, depression Hematological/Lymphatic: denies: easy bleeding, easy bruising ED Past Medical Hx - Past Medical History Previous Medical History?: Yes Hx Hypertension: Yes Hx Diabetes: Yes Hx Seizures: Yes (AUGUST 2018) Hx Psychiatric Treatment: Yes ([place], [place], etc.) Hx Asthma: Yes Hx COPD: Yes Hx Dementia: Yes Additional medical history: HIGH CHOLESTEROL, paranoid schizophrenia, PTSD, psychosis. SLEEP APNEA - Surgical History Past Surgical History?: Yes Hx Cholecystectomy: Yes Hx Appendectomy: Yes Additional Surgical History: HYSTERECTOMY, knee surgery,TONSILLECTOMY - Family History Family history: no significant - Social History Smoking Status: Current Every Day Smoker Substance Use Type: None - Medications Home Medications: Home Medications Medication Instructions Recorded Confirmed Last Taken Type FLUoxetine HCL [PROzac] 40 mg PO QDAY 07/07/15 10/15/15 06/07/15 History Gabapentin 300 mg PO BID 07/07/15 10/15/15 06/07/15 History Haloperidol Decanoate [Haldol 100 mg IM QMONTH 07/07/15 10/15/15 06/07/15 History Decanoate] Insulin Glargine [Lantus VIAL] 15 units SQ QHS 07/07/15 10/15/15 06/07/15 History Insulin Lispro Protamin/Lispro 8 units SQ TID 07/07/15 10/15/15 06/07/15 History [HumaLOG Mix 50-50 Kwikpen] Losartan [Cozaar] 60 mg PO BID 07/07/15 10/15/15 06/07/15 History Topiramate [Topamax] 200 mg PO BID 07/07/15 10/15/15 06/07/15 History hydrOXYzine PAMOATE [Vistaril] 25 mg PO QDAY 07/07/15 10/15/15 06/07/15 History Haldol 10 mg PO BID 10/15/15 10/15/15 Unknown History Januvia 100 mg PO DAILY 10/15/15 10/15/15 Unknown History Lipitor 40 mg PO HS 10/15/15 10/15/15 Unknown History Temazepam 15 mg PO HS 10/15/15 10/15/15 Unknown History Ibuprofen [Motrin] 600 mg PO Q8H PRN #30 tablet 04/26/17 Unknown Rx Albuterol Mdi (or & Nicu Only) 2 puff IH QID PRN #1 inhalation 09/19/17 Unknown Rx [ProAir HFA Inhaler] Azithromycin [Zithromax Z-TIFFANIE] 250 mg PO DAILY #6 tablet 09/19/17 Unknown Rx Benzonatate [Tessalon Perle] 100 mg PO TID #12 capsule 09/19/17 Unknown Rx HYDROcodone/APAP 5-325 [[place] 1 each PO Q4HR PRN #12 tablet 09/19/17 Unknown Rx 5/325] Ondansetron [Zofran Odt] 4 mg PO Q8HR PRN #14 tab.rapdis 05/16/18 Unknown Rx cephALEXin [Keflex] 500 mg PO Q8HR #28 cap 05/16/18 Unknown Rx Ibuprofen [Motrin] 800 mg PO Q8HR PRN #30 tablet 10/27/18 Unknown Rx Permethrin 5% [Acticin 5% CREAM] 1 applicatio TP ONCE #2 tube 10/27/18 Unknown Rx traMADoL [Ultram 50 MG tab] 50 mg PO Q6HR PRN #10 tablet 01/03/20 Unknown Rx ED Physical Exam - General Limitations: No Limitations General appearance: alert, in no apparent distress - Head Head exam: Present: atraumatic, normocephalic - Eye Eye exam: Present: normal appearance - ENT ENT exam: Present: mucous membranes moist - Neck Neck exam: Present: normal inspection - Respiratory Respiratory exam: Present: normal lung sounds bilaterally. Absent: respiratory distress - Cardiovascular Cardiovascular Exam: Present: regular rate, normal rhythm. Absent: systolic murmur, diastolic murmur, rubs, gallop - GI/Abdominal GI/Abdominal exam: Present: soft, normal bowel sounds - Extremities Exam Extremities exam: Present: normal inspection, full ROM (Except for right foot), tenderness (Right lateral foot), normal capillary refill. Absent: pedal edema, calf tenderness - Back Exam Back exam: Present: normal inspection - Neurological Exam Neurological exam: Present: alert, oriented X3 - Psychiatric Psychiatric exam: Present: normal affect, normal mood - Skin Skin exam: Present: warm, dry, intact, normal color. Absent: rash ED Course Vital Signs 01/02/20 23:47 Temperature 98.7 F Pulse Rate 79 Respiratory 18 Rate Blood Pressure 119/71 O2 Sat by Pulse 96 Oximetry - Reevaluation(s) Reevaluation #1: I discussed all results and clinical findings with patient. I discussed plan of care with patient. Patient agrees with plan of care. Patient is stable for discharge. Patient will be discharged home. Patient given discharge instructions. Patient voiced understanding of discharge instructions. 01/03/20 04:51 ED Lower Extremity MDM - Radiology Data Radiology results: report reviewed, image reviewed interpreted by me: Right foot x-ray: No fracture, soft tissue within normal limits, no foreign body. Right foot 3 views INDICATION / CLINICAL INFORMATION: Right foot pain and swelling COMPARISON: None available. FINDINGS: BONES / JOINT(S): No acute fracture or subluxation. Suspect old injury at the base of the fifth metatarsal. Moderate bunion first metatarsal head. Mild/moderate DJD first metatarsophalangeal joint. Large calcaneal spur. DJD at the ankle. SOFT TISSUES: No significant abnormality. ADDITIONAL FINDINGS: None. - Medical Decision Making Patient is a 59-year-old female that presents emergency room with complaints of right foot pain. Patient's clinical findings are consistent with a right foot sprain. Patient had an x-ray done which was negative for acute findings and fracture. Patient is stable discharge. Patient was discharged home. - Differential Diagnosis Strain, sprain, fracture, contusion Critical care attestation.: If time is entered above; I have spent that time in minutes in the direct care of this critically ill patient, excluding procedure time. ED Disposition Clinical Impression: Foot pain, right Sprain of foot, right Qualifiers: Encounter type: initial encounter Qualified Code(s): S93.601A - Unspecified sprain of right foot, initial encounter Disposition: TO HOME OR SELFCARE Is pt being admited?: No Does the pt Need Aspirin: No Condition: Stable Instructions: Foot Sprain (ED) Additional Instructions: Patient to follow-up with primary care in 2 to 3 days. Patient to follow-up with orthopedist in 2 to 3 days. Patient to rest. Patient to increase water. Patient to avoid strenuous exercise or heavy lifting until cleared by orthopedist. Patient to take Tylenol or ibuprofen as needed for pain. Patient to take meds as directed. Patient to return to the ER if condition worsens, changes or new symptoms arise. Prescriptions: traMADoL [Ultram 50 MG tab] 50 mg PO Q6HR PRN #10 tablet PRN Reason: Pain Referrals: PRIMARY CARE, [Primary Care Provider] - 2-3 Days Time of Disposition: 04:54
== END 2020-01-03 05:30 | disposition home or self-care (01) ==
LOC: ED 23:41
DX: S93.601A Unspecified sprain of right foot, initial encounter (principal); I10 Essential (primary) hypertension; E11.9 Type 2 diabetes mellitus without complications; R56.9 Unspecified convulsions; J44.9 Chronic obstructive pulmonary disease, unspecified; F03.90 Unspecified dementia, unspecified severity, without behavioral disturbance, psychotic disturbance, mood disturbance, and anxiety; F17.200 Nicotine dependence, unspecified, uncomplicated; Z90.49 Acquired absence of other specified parts of digestive tract; Z90.89 Acquired absence of other organs; Z90.710 Acquired absence of both cervix and uterus; Z79.1 Long term (current) use of non-steroidal anti-inflammatories (NSAID); Z79.2 Long term (current) use of antibiotics; Z79.899 Other long term (current) drug therapy; Z79.4 Long term (current) use of insulin; Z88.1 Allergy status to other antibiotic agents; Z88.8 Allergy status to other drugs, medicaments and biological substances; Z91.018 Allergy to other foods; X50.1XXA Overexertion from prolonged static or awkward postures, initial encounter; Y93.89 Activity, other specified; Y92.89 Other specified places as the place of occurrence of the external cause; Y99.8 Other external cause status

== ENCOUNTER 2020-01-13 23:21 | Emergency (ER) | payer MEDICARE ==
--- NOTE | 2020-01-14 04:55 | Emergency Department Report ---
ED Fall HPI - General Chief Complaint: Headache Stated Complaint: HEADACHE Source: patient Mode of arrival: Ambulatory - History of Present Illness Initial Comments: 59-year-old female presents to the emergency room complaining of a headache after fall from the couch around noon yesterday. Patient states that she hit her head on the couch her cane in her Rollator and then to the floor. Patient states that she has been taken Tylenol but did not help with her headache. Patient reports that she vomited 3 times yesterday and several times this morning. Patient has a history of asthma, COPD, dementia, diabetes, hypertension, paranoid schizophrenia, PTSD, psychosis, sleep apnea and high cholesterol. MD Complaint: fall Onset/Timin Time: 12:00 Fall From: out of bed Fall Witnessed: no Place Fall Occurred: home Loss of Consciousness: none Prolonged Down Time?: no Symptoms Prior to Fall: none Location: head, neck Severity scale (0 -10): 9 Quality: sharp, aching Associated Symptoms: other (Vomited) - Related Data Home Medications Medication Instructions Recorded Confirmed Last Taken FLUoxetine HCL [PROzac] 40 mg PO QDAY 07/07/15 10/15/15 06/07/15 Gabapentin 300 mg PO BID 07/07/15 10/15/15 06/07/15 Haloperidol Decanoate [Haldol 100 mg IM QMONTH 07/07/15 10/15/15 06/07/15 Decanoate] Insulin Glargine [Lantus VIAL] 15 units SQ QHS 07/07/15 10/15/15 06/07/15 Insulin Lispro Protamin/Lispro 8 units SQ TID 07/07/15 10/15/15 06/07/15 [HumaLOG Mix 50-50 Kwikpen] Losartan [Cozaar] 60 mg PO BID 07/07/15 10/15/15 06/07/15 Topiramate [Topamax] 200 mg PO BID 07/07/15 10/15/15 06/07/15 hydrOXYzine PAMOATE [Vistaril] 25 mg PO QDAY 07/07/15 10/15/15 06/07/15 Haldol 10 mg PO BID 10/15/15 10/15/15 Unknown Januvia 100 mg PO DAILY 10/15/15 10/15/15 Unknown Lipitor 40 mg PO HS 10/15/15 10/15/15 Unknown Temazepam 15 mg PO HS 10/15/15 10/15/15 Unknown Previous Rx's Medication Instructions Recorded Last Taken Type Ibuprofen [Motrin] 600 mg PO Q8H PRN #30 tablet 04/26/17 Unknown Rx Albuterol Mdi (or & Nicu Only) 2 puff IH QID PRN #1 inhalation 09/19/17 Unknown Rx [ProAir HFA Inhaler] Azithromycin [Zithromax Z-TIFFANIE] 250 mg PO DAILY #6 tablet 09/19/17 Unknown Rx Benzonatate [Tessalon Perle] 100 mg PO TID #12 capsule 09/19/17 Unknown Rx HYDROcodone/APAP 5-325 [[place] 1 each PO Q4HR PRN #12 tablet 09/19/17 Unknown Rx 5/325] Ondansetron [Zofran Odt] 4 mg PO Q8HR PRN #14 tab.rapdis 05/16/18 Unknown Rx cephALEXin [Keflex] 500 mg PO Q8HR #28 cap 05/16/18 Unknown Rx Ibuprofen [Motrin] 800 mg PO Q8HR PRN #30 tablet 10/27/18 Unknown Rx Permethrin 5% [Acticin 5% CREAM] 1 applicatio TP ONCE #2 tube 10/27/18 Unknown Rx traMADoL [Ultram 50 MG tab] 50 mg PO Q6HR PRN #10 tablet 01/03/20 Unknown Rx Allergies Allergy/AdvReac Type Severity Reaction Status Date / Time ciprofloxacin HCl Allergy Rash Verified 10/31/18 10:20 [From Cipro] erythromycin base Allergy Rash Verified 10/31/18 10:20 [Erythromycin Base] lithium [[place]] Allergy Headache Verified 10/31/18 10:20 nitrofurantoin Allergy Hives Verified 10/31/18 10:20 macrocrystalline [From Macrodantin] sulfamethoxazole Allergy Hives Verified 10/31/18 10:20 [From Bactrim] trimethoprim [From Bactrim] Allergy Hives Verified 10/31/18 10:20 orange juice AdvReac MOUTH SORES Verified 10/31/18 10:20 pineapple AdvReac MOUTH SORES Verified 10/31/18 10:20 mushrooms Allergy Swelling Uncoded 09/19/17 11:42 ED Review of Systems ROS: Stated complaint: HEADACHE Other details as noted in HPI Comment: All other systems reviewed and negative ED Past Medical Hx - Past Medical History Hx Hypertension: Yes Hx Diabetes: Yes Hx Seizures: Yes (AUGUST 2018) Hx Psychiatric Treatment: Yes ([place], [place], etc.) Hx Asthma: Yes Hx COPD: Yes Hx Dementia: Yes Additional medical history: HIGH CHOLESTEROL, paranoid schizophrenia, PTSD, psychosis. SLEEP APNEA - Surgical History Hx Cholecystectomy: Yes Hx Appendectomy: Yes Additional Surgical History: HYSTERECTOMY, knee surgery,TONSILLECTOMY - Social History Smoking Status: Never Smoker Substance Use Type: None - Medications Home Medications: Home Medications Medication Instructions Recorded Confirmed Last Taken Type FLUoxetine HCL [PROzac] 40 mg PO QDAY 07/07/15 10/15/15 06/07/15 History Gabapentin 300 mg PO BID 07/07/15 10/15/15 06/07/15 History Haloperidol Decanoate [Haldol 100 mg IM QMONTH 07/07/15 10/15/15 06/07/15 Histo ry Decanoate] Insulin Glargine [Lantus VIAL] 15 units SQ QHS 07/07/15 10/15/15 06/07/15 History Insulin Lispro Protamin/Lispro 8 units SQ TID 07/07/15 10/15/15 06/07/15 History [HumaLOG Mix 50-50 Kwikpen] Losartan [Cozaar] 60 mg PO BID 07/07/15 10/15/15 06/07/15 History Topiramate [Topamax] 200 mg PO BID 07/07/15 10/15/15 06/07/15 History hydrOXYzine PAMOATE [Vistaril] 25 mg PO QDAY 07/07/15 10/15/15 06/07/15 History Haldol 10 mg PO BID 10/15/15 10/15/15 Unknown History Januvia 100 mg PO DAILY 10/15/15 10/15/15 Unknown History Lipitor 40 mg PO HS 10/15/15 10/15/15 Unknown History Temazepam 15 mg PO HS 10/15/15 10/15/15 Unknown History Ibuprofen [Motrin] 600 mg PO Q8H PRN #30 tablet 04/26/17 Unknown Rx Albuterol Mdi (or & Nicu Only) 2 puff IH QID PRN #1 inhalation 09/19/17 Unknown Rx [ProAir HFA Inhaler] Azithromycin [Zithromax Z-TIFFANIE] 250 mg PO DAILY #6 tablet 09/19/17 Unknown Rx Benzonatate [Tessalon Perle] 100 mg PO TID #12 capsule 09/19/17 Unknown Rx HYDROcodone/APAP 5-325 [[place] 1 each PO Q4HR PRN #12 tablet 09/19/17 Unknown Rx 5/325] Ondansetron [Zofran Odt] 4 mg PO Q8HR PRN #14 tab.rapdis 05/16/18 Unknown Rx cephALEXin [Keflex] 500 mg PO Q8HR #28 cap 05/16/18 Unknown Rx Ibuprofen [Motrin] 800 mg PO Q8HR PRN #30 tablet 10/27/18 Unknown Rx Permethrin 5% [Acticin 5% CREAM] 1 applicatio TP ONCE #2 tube 10/27/18 Unknown Rx traMADoL [Ultram 50 MG tab] 50 mg PO Q6HR PRN #10 tablet 01/03/20 Unknown Rx ED Physical Exam - General Limitations: No Limitations General appearance: alert, in no apparent distress - Head Head exam: Present: atraumatic, normocephalic - Eye Eye exam: Present: normal appearance, PERRL, EOMI - ENT ENT exam: Present: mucous membranes moist - Neck Neck exam: Present: tenderness, full ROM - Respiratory Respiratory exam: Present: normal lung sounds bilaterally. Absent: respiratory distress - Cardiovascular Cardiovascular Exam: Present: regular rate, normal rhythm. Absent: systolic murmur, diastolic murmur, rubs, gallop - GI/Abdominal GI/Abdominal exam: Present: soft, normal bowel sounds - Neurological Exam Neurological exam: Present: alert, oriented X3 - Psychiatric Psychiatric exam: Present: normal mood, anxious - Skin Skin exam: Present: warm, dry, intact, normal color. Absent: rash ED Course Vital Signs 01/14/20 00:03 Temperature 98.1 F Pulse Rate 78 Respiratory 18 Rate Blood Pressure 114/77 O2 Sat by Pulse 93 Oximetry ED Medical Decision Making - Radiology Data Radiology results: report reviewed Ordering Physician: FAN ALVARENGA Date of Service: 01/14/20 Procedure(s): CT cervical spine wo con Accession Number(s): [id number] cc: FAN ALVARENGA CT cervical spine wo con INDICATION: Post-fall, now with a headache. TECHNIQUE: All CT scans at this location are performed using the following dose modulation technique: Automated exposure control. CONTRAST: None. COMPARISON: None available. FINDINGS: Satisfactory alignment without vertebral compression. Mild degenerative disc disease is greatest at C6-C7. No soft tissue abnormality. IMPRESSION: 1. Negative for vertebral compression. 2. Mild degenerative disc disease. Signer Name: Bryan Gregory MD Signed: 01/14/2020 5:18 AM Workstation Name: [id number] Transcribed By: SUNNI Dictated By: Bryan Gregory MD Electronically Authenticated By: Bryan Gregory MD Signed Date/Time: 01/14/20517 DD/ 5 TD/TT: Patient: EVELIA VILLANUEVA MR#: [id number] : 1960 Acct:[id number] Age/Sex: 59 / F ADM Date: 01/13/20 Loc: ED Attending Dr: Ordering Physician: FAN ALVARENGA Date of Service: 01/14/20 Procedure(s): CT head/brain wo con Accession Number(s): [id number] cc: FAN ALVARENGA CT head/brain wo con INDICATION: Post-fall, now with a headache. TECHNIQUE: All CT scans at this location are performed using the following dose modulation technique: Automated exposure control. CONTRAST: None. COMPARISON: 05/28/2019 FINDINGS: The ventricular system is appropriate in size and configuration without midline shift. Negative for mass, stroke or hemorrhage. Imaged bones and paranasal sinuses are unremarkable. IMPRESSION: Negative CT brain without contrast. Signer Name: Bryan Gregory MD Signed: 01/14/2020 5:16 AM Workstation Name: [id number] Transcribed By: SUNNI Dictated By: Bryan Gregory MD Electronically Authenticated By: Bryan Gregory MD Signed Date/Time: 01/14/20515 DD/ 2 TD/TT: - Medical Decision Making 59-year-old female presents to the emergency room complaining of a headache after fall from the couch around noon yesterday. Patient states that she hit her head on the couch her cane in her Rollator and then to the floor. Patient states that she has been taken Tylenol but did not help with her headache. Patient reports that she vomited 3 times yesterday and several times this morning. Patient has a history of asthma, COPD, dementia, diabetes, hypertension, paranoid schizophrenia, PTSD, psychosis, sleep apnea and high cholesterol. CT of neck and head has been ordered. Both x-rays are negative for any acute findings. Recommend patient to take ibuprofen for her pain. Follow-up with your primary care provider. Critical care attestation.: If time is entered above; I have spent that time in minutes in the direct care of this critically ill patient, excluding procedure time. ED Disposition Clinical Impression: Fall, Head injury, acute, Headache Disposition: DC- TO HOME OR SELFCARE Is pt being admited?: No Does the pt Need Aspirin: No Condition: Stable Instructions: Acute Headache (ED) Additional Instructions: CT scans are negative for any acute findings. You can take ibuprofen for pain management or Tylenol. Follow-up with your primary care provider if his symptoms persist or gets worse. I like for you to avoid all electronic devices TV cell phone for the next 2 weeks for precautions of concussion. Referrals: PRIMARY CARE,MD [Primary Care Provider] - 3-5 Days Your, primary care doctor [Other] - 3-5 Days
--- NOTE | 2020-01-14 05:20 | Cat Scan Report ---
CT head/brain wo con INDICATION: Post-fall, now with a headache. TECHNIQUE: All CT scans at this location are performed using the following dose modulation technique: Automated exposure control. CONTRAST: None. COMPARISON: 05/28/2019 FINDINGS: The ventricular system is appropriate in size and configuration without midline shift. Nega tive for mass, stroke or hemorrhage. Imaged bones and paranasal sinuses are unremarkable. IMPRESSION: Negative CT brain without contrast. Signer Name: Bryan Gregory MD Signed: 01/14/2020 5:16 AM Workstation Name: [id number]
--- NOTE | 2020-01-14 05:23 | Cat Scan Report ---
CT cervical spine wo con INDICATION: Post-fall, now with a headache. TECHNIQUE: All CT scans at this location are performed using the following dose modulation technique: Automated exposure control. CONTRAST: None. COMPARISON: None available. FINDINGS: Satisfactory alignment without vertebral compression. Mild degenerative disc disease is gre atest at C6-C7. No soft tissue abnormality. IMPRESSION: 1. Negative for vertebral compression. 2. Mild degenerative disc disease. Signer Name: Bryan Gregory MD Signed: 01/14/2020 5:18 AM Workstation Name: [id number]
[2020-01-14] MEDS ORDERED: IBUPROFEN 600 MG TAB PO ONE (06:07)
[2020-01-14 07:07] VITALS: BP 133/81
== END 2020-01-14 06:40 | disposition home or self-care (01) ==
LOC: ED 23:21
DX: S09.90XA Unspecified injury of head, initial encounter (principal); I10 Essential (primary) hypertension; E11.9 Type 2 diabetes mellitus without complications; J44.9 Chronic obstructive pulmonary disease, unspecified; F03.90 Unspecified dementia, unspecified severity, without behavioral disturbance, psychotic disturbance, mood disturbance, and anxiety; E78.00 Pure hypercholesterolemia, unspecified; F43.11 Post-traumatic stress disorder, acute; F23 Brief psychotic disorder; F20.0 Paranoid schizophrenia; Z90.49 Acquired absence of other specified parts of digestive tract; Z90.89 Acquired absence of other organs; Z90.710 Acquired absence of both cervix and uterus; Z79.899 Other long term (current) drug therapy; Z88.1 Allergy status to other antibiotic agents; Z88.6 Allergy status to analgesic agent; W17.89XA Other fall from one level to another, initial encounter; Y93.89 Activity, other specified; Y92.89 Other specified places as the place of occurrence of the external cause; Y99.8 Other external cause status
CPT/HCPCS: 70450; 72125

== ENCOUNTER 2020-02-22 21:45 | Emergency (ER) | payer MEDICARE ==
--- NOTE | 2020-02-22 23:56 | Emergency Department Report ---
ED General Adult HPI - General Chief complaint: Wound/Laceration Stated complaint: BED SORES ON BACK Time Seen by Provider: 02/22/20 23:31 Source: patient Mode of arrival: Ambulatory Limitations: No Limitations, Physical Limitation - History of Present Illness Initial comments: 60-year-old female, history of bipolar disorder, presents to ED with complaint of bedsore on left buttock. Patient states she is not sure how long it has been there, however she reports some pain with sitting position. She denies any swelling or fever. Patient also is reporting left knee pain after she suffered a fall 02/06/2020, injuring her left knee. Patient reports she has had previous surgery on her knees in the past. Patient reports since the fall she has had so me swelling and bruising in the left knee. She is currently seeing an orthopedic surgeon, had an MRI last week, with surgery planned in the future. -: unknown Location: buttocks Quality: aching Consistency: intermittent Worsens with: other (Sitting position) Associated Symptoms: denies: fever/chills - Related Data Home Medications Medication Instructions Recorded Confirmed Last Taken FLUoxetine HCL [PROzac] 40 mg PO QDAY 07/07/15 10/15/15 06/07/15 Gabapentin 300 mg PO BID 07/07/15 10/15/15 06/07/15 Haloperidol Decanoate [Haldol 100 mg IM QMONTH 07/07/15 10/15/15 06/07/15 Decanoate] Insulin Glargine [Lantus VIAL] 15 units SQ QHS 07/07/15 10/15/15 06/07/15 Insulin Lispro Protamin/Lispro 8 units SQ TID 07/07/15 10/15/15 06/07/15 [HumaLOG Mix 50-50 Kwikpen] Losartan [Cozaar] 60 mg PO BID 07/07/15 10/15/15 06/07/15 Topiramate [Topamax] 200 mg PO BID 07/07/15 10/15/15 06/07/15 hydrOXYzine PAMOATE [Vistaril] 25 mg PO QDAY 07/07/15 10/15/15 06/07/15 Haldol 10 mg PO BID 10/15/15 10/15/15 Unknown Januvia 100 mg PO DAILY 10/15/15 10/15/15 Unknown Lipitor 40 mg PO HS 10/15/15 10/15/15 Unknown Temazepam 15 mg PO HS 10/15/15 10/15/15 Unknown Previous Rx's Medication Instructions Recorded Last Taken Type Ibuprofen [Motrin] 600 mg PO Q8H PRN #30 tablet 04/26/17 Unknown Rx Albuterol Mdi (or & Nicu Only) 2 puff IH QID PRN #1 inhalation 09/19/17 Unknown Rx [ProAir HFA Inhaler] Azithromycin [Zithromax Z-TIFFANIE] 250 mg PO DAILY #6 tablet 09/19/17 Unknown Rx Benzonatate [Tessalon Perle] 100 mg PO TID #12 capsule 09/19/17 Unknown Rx HYDROcodone/APAP 5-325 [[place] 1 each PO Q4HR PRN #12 tablet 09/19/17 Unknown Rx 5/325] Ondansetron [Zofran Odt] 4 mg PO Q8HR PRN #14 tab.rapdis 05/16/18 Unknown Rx cephALEXin [Keflex] 500 mg PO Q8HR #28 cap 05/16/18 Unknown Rx Ibuprofen [Motrin] 800 mg PO Q8HR PRN #30 tablet 10/27/18 Unknown Rx Permethrin 5% [Acticin 5% CREAM] 1 applicatio TP ONCE #2 tube 10/27/18 Unknown Rx traMADoL [Ultram 50 MG tab] 50 mg PO Q6HR PRN #10 tablet 01/03/20 Unknown Rx Allergies Allergy/AdvReac Type Severity Reaction Status Date / Time ciprofloxacin HCl Allergy Rash Verified 10/31/18 10:20 [From Cipro] erythromycin base Allergy Rash Verified 10/31/18 10:20 [Erythromycin Base] lithium [[place]] Allergy Headache Verified 10/31/18 10:20 nitrofurantoin Allergy Hives Verified 10/31/18 10:20 macrocrystalline [From Macrodantin] sulfamethoxazole Allergy Hives Verified 10/31/18 10:20 [From Bactrim] trimethoprim [From Bactrim] Allergy Hives Verified 10/31/18 10:20 orange juice AdvReac MOUTH SORES Verified 10/31/18 10:20 pineapple AdvReac MOUTH SORES Verified 10/31/18 10:20 mushrooms Allergy Swelling Uncoded 09/19/17 11:42 ED Review of Systems ROS: Stated complaint: BED SORES ON BACK Other details as noted in HPI Comment: All other systems reviewed and negative Constitutional: denies: fever Musculoskeletal: as per HPI Psychiatric: denies: homicidal thoughts, suicidal thoughts ED Past Medical Hx - Past Medical History Previous Medical History?: Yes Hx Hypertension: Yes Hx Diabetes: Yes Hx Seizures: Yes (AUGUST 2018) Hx Psychiatric Treatment: Yes ([place], [place], etc.) Hx Asthma: Yes Hx COPD: Yes Hx Dementia: Yes Additional medical history: HIGH CHOLESTEROL, paranoid schizophrenia, PTSD, psychosis. SLEEP APNEA - Surgical History Hx Cholecystectomy: Yes Hx Appendectomy: Yes Additional Surgical History: HYSTERECTOMY, knee surgery,TONSILLECTOMY - Social History Smoking Status: Never Smoker Substance Use Type: None - Medications Home Medications: Home Medications Medication Instructions Recorded Confirmed Last Taken Type FLUoxetine HCL [PROzac] 40 mg PO QDAY 07/07/15 10/15/15 06/07/15 History Gabapentin 300 mg PO BID 07/07/15 10/15/15 06/07/15 History Haloperidol Decanoate [Haldol 100 mg IM QMONTH 07/07/15 10/15/15 06/07/15 History Decanoate] Insulin Glargine [Lantus VIAL] 15 units SQ QHS 07/07/15 10/15/15 06/07/15 History Insulin Lispro Protamin/Lispro 8 units SQ TID 07/07/15 10/15/15 06/07/15 History [HumaLOG Mix 50-50 Kwikpen] Losartan [Cozaar] 60 mg PO BID 07/07/15 10/15/15 06/07/15 History Topiramate [Topamax] 200 mg PO BID 07/07/15 10/15/15 06/07/15 History hydrOXYzine PAMOATE [Vistaril] 25 mg PO QDAY 07/07/15 10/15/15 06/07/15 History Haldol 10 mg PO BID 10/15/15 10/15/15 Unknown History Januvia 100 mg PO DAILY 10/15/15 10/15/15 Unknown History Lipitor 40 mg PO HS 10/15/15 10/15/15 Unknown History Temazepam 15 mg PO HS 10/15/15 10/15/15 Unknown History Ibuprofen [Motrin] 600 mg PO Q8H PRN #30 tablet 04/26/17 Unknown Rx Albuterol Mdi (or & Nicu Only) 2 puff IH QID PRN #1 inhalation 09/19/17 Unknown Rx [ProAir HFA Inhaler] Azithromycin [Zithromax Z-TIFFANIE] 250 mg PO DAILY #6 tablet 09/19/17 Unknown Rx Benzonatate [Tessalon Perle] 100 mg PO TID #12 capsule 09/19/17 Unknown Rx HYDROcodone/APAP 5-325 [[place] 1 each PO Q4HR PRN #12 tablet 09/19/17 Unknown Rx 5/325] Ondansetron [Zofran Odt] 4 mg PO Q8HR PRN #14 tab.rapdis 05/16/18 Unknown Rx cephALEXin [Keflex] 500 mg PO Q8HR #28 cap 05/16/18 Unknown Rx Ibuprofen [Motrin] 800 mg PO Q8HR PRN #30 tablet 10/27/18 Unknown Rx Permethrin 5% [Acticin 5% CREAM] 1 applicatio TP ONCE #2 tube 10/27/18 Unknown Rx traMADoL [Ultram 50 MG tab] 50 mg PO Q6HR PRN #10 tablet 01/03/20 Unknown Rx ED Physical Exam - General Limitations: No Limitations, Physical Limitation General appearance: alert, in no apparent distress - Head Head exam: Present: atraumatic, normocephalic - Eye Eye exam: Present: normal appearance, EOMI - ENT ENT exam: Present: mucous membranes moist - Neck Neck exam: Present: normal inspection - Respiratory Respiratory exam: Present: normal lung sounds bilaterally. Absent: respiratory distress - Cardiovascular Cardiovascular Exam: Present: regular rate, normal rhythm - GI/Abdominal GI/Abdominal exam: Present: soft. Absent: distended, tenderness - Extremities Exam Extremities exam: Present: other (Mild swelling to left knee, with bruising present on anterior left lower leg; patient ambulatory) - Neurological Exam Neurological exam: Present: alert, oriented X3 - Psychiatric Psychiatric exam: Present: normal affect, normal mood - Skin Skin exam: Present: warm, dry, intact, normal color, other (Patient has small superficial ulceration approx 1 cm, no induration, nontender, no purulent drainage, no erythema) ED Course Vital Signs 02/22/20 22:14 Temperature 97.9 F Pulse Rate 65 Respiratory 16 Rate Blood Pressure 113/57 O2 Sat by Pulse 100 Oximetry ED Medical Decision Making - Medical Decision Making Patient advised to use topical Neosporin on buttock wound. Critical care attestation.: If time is entered above; I have spent that time in minutes in the direct care of this critically ill patient, excluding procedure time. ED Disposition Clinical Impression: Skin ulceration, Left knee pain Disposition: - TO HOME OR SELFCARE Is pt being admited?: No Condition: Stable Instructions: Acute Wound Care (ED) Referrals: PRIMARY CARE, [Referring] - 3-5 Days Time of Disposition: 00:05
[2020-02-23 00:39] VITALS: BP 118/66
== END 2020-02-23 00:40 | disposition home or self-care (01) ==
LOC: ED 21:45
DX: L98.419 Non-pressure chronic ulcer of buttock with unspecified severity (principal); M25.561 Pain in right knee; I10 Essential (primary) hypertension; E11.9 Type 2 diabetes mellitus without complications; R56.9 Unspecified convulsions; J44.9 Chronic obstructive pulmonary disease, unspecified; F03.90 Unspecified dementia, unspecified severity, without behavioral disturbance, psychotic disturbance, mood disturbance, and anxiety; Z90.49 Acquired absence of other specified parts of digestive tract; Z90.710 Acquired absence of both cervix and uterus; Z90.89 Acquired absence of other organs; Z79.4 Long term (current) use of insulin; Z79.1 Long term (current) use of non-steroidal anti-inflammatories (NSAID); Z79.2 Long term (current) use of antibiotics; Z79.899 Other long term (current) drug therapy; Z88.1 Allergy status to other antibiotic agents; Z88.8 Allergy status to other drugs, medicaments and biological substances
CPT/HCPCS: 99282

== ENCOUNTER 2021-10-10 20:35 | Emergency (ER) | payer MEDICARE ==
[2021-10-10] MEDS ORDERED: ASPIRIN 325 MG TAB PO ONE (23:15)
[2021-10-10 23:39] LABS: Basophils # (Auto) 0.1 K/mm3 (0.0-0.1); Basophils % (Auto) 0.6 % (0.0-1.8); Eosinophils # (Auto) 0.2 K/mm3 (0.0-0.4); Eosinophils % (Auto) 2.1 % (0.0-4.3); Hematocrit 34.2 % (30.3-42.9); Hemoglobin 11.2 gm/dl (10.1-14.3); Lymphocytes # (Auto) 4.2 K/mm3 (1.2-5.4); Mean Corpuscular HGB Conc 33 % (30-34); Mean Corpuscular Volume 88 fl (79-97); Monocytes # (Auto) 0.6 K/mm3 (0.0-0.8); Monocytes % (Auto) 6.1 % (0.0-7.3); Platelet Count 306 K/mm3 (140-440); Red Blood Count 3.91 M/mm3 (3.65-5.03); Red Cell Distribution Width 13.3 % (13.2-15.2)
[2021-10-11 00:02] LABS: Alanine Aminotransferase 27 units/L (7-56); Albumin 3.9 g/dL (3.9-5); BUN/Creatinine Ratio 25; Blood Urea Nitrogen 25 mg/dL (7-17); Calcium 9.2 mg/dL (8.4-10.2); Hemolysis Index 9
--- NOTE | 2021-10-11 00:35 | XRay Report ---
CHEST 2 VIEWS INDICATION / CLINICAL INFORMATION: chestpain. COMPARISON: Chest x-ray 05/24/2019 FINDINGS: SUPPORT DEVICES: None. HEART / MEDIASTINUM: No significant abnormality. LUNGS / PLEURA: No significant pulmonary or pleural abnormality. No pneumothorax. BONES: No significant osseous abnormality. ADDITIONAL FINDINGS: No significant additional findings. IMPRESSION: 1. No active cardiopulmonary disease. Signer Name: Chadd Santiago II, MD Signed: 10/11/2021 12:30 AM Workstation Name: [id number]
[2021-10-11] MEDS ORDERED: ASPIRIN 81 MG TAB CHEW ONE (04:50)
--- NOTE | 2021-10-11 07:35 | Emergency Department Report ---
ED Chest Pain HPI - General Chief Complaint: Chest Pain Stated Complaint: CHEST PAIN PUI?: No Time Seen by Provider: 10/11/21 07:00 Source: patient Mode of arrival: Stretcher Limitations: No Limitations - History of Present Illness Initial Comments: Patient is a 61-year-old obese female with multiple medical comorbidities presen ting for evaluation of intermittent chest pain x4 days. Pain is sharp occurs under her left breast it is nonradiating. She states there are no aggravators or alleviators. She denies any cough or URI symptoms. When pain does occur it lasts for several seconds to several minutes. No lightheadedness dizziness syncope or presyncope. No shortness of breath weakness or lightheadedness associated with it. She states she also sometimes get acid reflux. Patient reports she used to see a search engine optimization analyst in [place] and she had previously been diagnosed with "angina" but she states he performed an echocardiogram and stress test in March 2021 and per her report "everything was normal." She states she has no active pain and is requesting to be discharged back to her nursing facility. Pain 0 out of 10 MD Complaint: chest pain -: Gradual, days(s) (4) Onset: awoke with symptoms Pain Location: other (under left breast) Pain Radiation: none Severity: mild Severity scale (0 -10): 8 Quality: tightness, heaviness Consistency: now resolved Improves With: nothing Worsens With: nothing re: denies: nausea, vomting, diaphoresis, dyspnea, sense of impending doom, other Other Symptoms: acid taste in mouth. denies: cough, fever, syncope, rash, leg swelling, palpitations, burping, other Treatments Prior to Arrival: none Aspirin use within the Past 7 Days: (0) No - Related Data On Oral Contraceptives: No Home Medications Medication Instructions Recorded Confirmed Last Taken FLUoxetine HCL [PROzac] 40 mg PO QDAY 07/07/15 10/15/15 06/07/15 Gabapentin 300 mg PO BID 07/07/15 10/15/15 06/07/15 Haloperidol Decanoate [Haldol 100 mg IM QMONTH 07/07/15 10/15/15 06/07/15 Decanoate] Insulin Glargine [Lantus VIAL] 15 units SQ QHS 07/07/15 10/15/15 06/07/15 Insulin Lispro Protamin/Lispro 8 units SQ TID 07/07/15 10/15/15 06/07/15 [HumaLOG Mix 50-50 Kwikpen] Losartan [Cozaar] 60 mg PO BID 07/07/15 10/15/15 06/07/15 Topiramate [Topamax] 200 mg PO BID 07/07/15 10/15/15 06/07/15 hydrOXYzine PAMOATE [Vistaril] 25 mg PO QDAY 07/07/15 10/15/15 06/07/15 Haldol 10 mg PO BID 10/15/15 10/15/15 Unknown Januvia 100 mg PO DAILY 10/15/15 10/15/15 Unknown Lipitor 40 mg PO HS 10/15/15 10/15/15 Unknown Temazepam 15 mg PO HS 10/15/15 10/15/15 Unknown Previous Rx's Medication Instructions Recorded Last Taken Type Ibuprofen [Motrin] 600 mg PO Q8H PRN #30 tablet 04/26/17 Unknown Rx Albuterol Mdi (or & Nicu Only) 2 puff IH QID PRN #1 inhalation 09/19/17 Unknown Rx [ProAir HFA Inhaler] Azithromycin [Zithromax Z-TIFFANIE] 250 mg PO DAILY #6 tablet 09/19/17 Unknown Rx Benzonatate [Tessalon Perle] 100 mg PO TID #12 capsule 09/19/17 Unknown Rx HYDROcodone/APAP 5-325 [[place] 1 each PO Q4HR PRN #12 tablet 09/19/17 Unknown Rx 5/325] Ondansetron [Zofran Odt] 4 mg PO Q8HR PRN #14 tab.rapdis 05/16/18 Unknown Rx cephALEXin [Keflex] 500 mg PO Q8HR #28 cap 05/16/18 Unknown Rx Ibuprofen [Motrin] 800 mg PO Q8HR PRN #30 tablet 10/27/18 Unknown Rx Permethrin 5% [Acticin 5% CREAM] 1 applicatio TP ONCE #2 tube 10/27/18 Unknown Rx traMADoL [Ultram 50 MG tab] 50 mg PO Q6HR PRN #10 tablet 01/03/20 Unknown Rx Allergies Allergy/AdvReac Type Severity Reaction Status Date / Time ciprofloxacin HCl Allergy Rash Verified 10/11/21 04:49 [From Cipro] erythromycin base Allergy Rash Verified 10/11/21 04:49 [Erythromycin Base] lithium [[place]] Allergy Headache Verified 10/11/21 04:49 nitrofurantoin Allergy Hives Verified 10/11/21 04:49 macrocrystalline [From Macrodantin] sulfamethoxazole Allergy Hives Verified 10/11/21 04:49 [From Bactrim] trimethoprim [From Bactrim] Allergy Hives Verified 10/11/21 04:49 orange juice AdvReac MOUTH SORES Verified 10/11/21 04:49 pineapple AdvReac MOUTH SORES Verified 10/11/21 04:49 mushrooms Allergy Swelling Uncoded 09/19/17 11:42 Heart Score - HEART Score History: Slightly suspicious EKG: Normal Age: 45-65 Risk factors: > 3 risk factors or hx of atherosclerotic disease Troponin: 1-3x normal limit HEART Score: 4 - EKG Read Time Time EKG Completed: 23:15 (pt checked in one day ago, 10/10/21, into ER) EKG Read Time: 07:04 - Critical Actions Critical Actions: 0-3 pts:0.9-1.7%risk of adverse cardiac event.Candidate for discharge (heart score 3) ED Review of Systems ROS: Stated complaint: CHEST PAIN Other details as noted in HPI Comment: All other systems reviewed and negative Constitutional: no symptoms reported Eyes: denies: eye pain, eye discharge ENT: denies: ear pain, throat pain, dental pain, hearing loss, epistaxis Respiratory: denies: see HPI, cough, orthopnea, shortness of breath, SOB with exertion, SOB at rest, stridor, wheezing Cardiovascular: chest pain. denies: palpitations, dyspnea on exertion, orthopnea, edema, syncope, paroxysmal nocturnal dyspnea Endocrine: see HPI. denies: excessive sweating, flushing, intolerance to cold, intolerance to heat, increased hunger, increased thirst, increased urine Gastrointestinal: denies: abdominal pain, nausea, vomiting, diarrhea, constipation, hematemesis, melena Genitourinary: denies: urgency, dysuria, frequency, discharge, abnormal menses Musculoskeletal: denies: back pain, joint swelling, arthralgia, myalgia Skin: denies: as per HPI, rash, lesions, change in color, change in hair/nails, pruritus Neurological: denies: headache, weakness, numbness, paresthesias Psychiatric: denies: anxiety, auditory hallucinations, visual hallucinations, homicidal thoughts Hematological/Lymphatic: denies: easy bleeding ED Past Medical Hx - Past Medical History Previous Medical History?: Yes Hx Hypertension: Yes Hx Diabetes: Yes Hx Seizures: Yes (AUGUST 2018) Hx Psychiatric Treatment: Yes ([place], [place], etc.) Hx Asthma: Yes Hx COPD: Yes Hx Dementia: Yes Additional medical history: HIGH CHOLESTEROL, paranoid schizophrenia, PTSD, psychosis. SLEEP APNEA - Surgical History Past Surgical History?: Yes Hx Cholecystectomy: Yes Hx Appendectomy: Yes Additional Surgical History: HYSTERECTOMY, knee surgery,TONSILLECTOMY - Social History Smoking Status: Never Smoker Substance Use Type: None - Medications Home Medications: Home Medications Medication Instructions Recorded Confirmed Last Taken Type FLUoxetine HCL [PROzac] 40 mg PO QDAY 07/07/15 10/15/15 06/07/15 History Gabapentin 300 mg PO BID 07/07/15 10/15/15 06/07/15 History Haloperidol Decanoate [Haldol 100 mg IM QMONTH 07/07/15 10/15/15 06/07/15 History Decanoate] Insulin Glargine [Lantus VIAL] 15 units SQ QHS 07/07/15 10/15/15 06/07/15 History Insulin Lispro Protamin/Lispro 8 units SQ TID 07/07/15 10/15/15 06/07/15 History [HumaLOG Mix 50-50 Kwikpen] Losartan [Cozaar] 60 mg PO BID 07/07/15 10/15/15 06/07/15 History Topiramate [Topamax] 200 mg PO BID 07/07/15 10/15/15 06/07/15 History hydrOXYzine PAMOATE [Vistaril] 25 mg PO QDAY 07/07/15 10/15/15 06/07/15 History Haldol 10 mg PO BID 10/15/15 10/15/15 Unknown History Januvia 100 mg PO DAILY 10/15/15 10/15/15 Unknown History Lipitor 40 mg PO HS 10/15/15 10/15/15 Unknown History Temazepam 15 mg PO HS 10/15/15 10/15/15 Unknown History Ibuprofen [Motrin] 600 mg PO Q8H PRN #30 tablet 04/26/17 Unknown Rx Albuterol Mdi (or & Nicu Only) 2 puff IH QID PRN #1 inhalation 09/19/17 Unknown Rx [ProAir HFA Inhaler] Azithromycin [Zithromax Z-TIFFANIE] 250 mg PO DAILY #6 tablet 09/19/17 Unknown Rx Benzonatate [Tessalon Perle] 100 mg PO TID #12 capsule 09/19/17 Unknown Rx HYDROcodone/APAP 5-325 [[place] 1 each PO Q4HR PRN #12 tablet 09/19/17 Unknown Rx 5/325] Ondansetron [Zofran Odt] 4 mg PO Q8HR PRN #14 tab.rapdis 05/16/18 Unknown Rx cephALEXin [Keflex] 500 mg PO Q8HR #28 cap 05/16/18 Unknown Rx Ibuprofen [Motrin] 800 mg PO Q8HR PRN #30 tablet 10/27/18 Unknown Rx Permethrin 5% [Acticin 5% CREAM] 1 applicatio TP ONCE #2 tube 10/27/18 Unknown Rx traMADoL [Ultram 50 MG tab] 50 mg PO Q6HR PRN #10 tablet 01/03/20 Unknown Rx ED Physical Exam - General Limitations: No Limitations General appearance: alert, in no apparent distress, other (well appearing, friendly, nad, states pain is 0/10) - Head Head exam: Present: atraumatic, other - Eye Eye exam: Present: normal appearance, PERRL, EOMI - ENT ENT exam: Present: normal exam, normal orophraynx, mucous membranes dry - Neck Neck exam: Present: normal inspection, full ROM. Absent: tenderness, meningismus, lymphadenopathy, thyromegaly - Respiratory Respiratory exam: Present: normal lung sounds bilaterally, respiratory distress. Absent: wheezes, rales, rhonchi, stridor, chest wall tenderness, accessory muscle use, decreased breath sounds, prolonged expiratory - Cardiovascular Cardiovascular Exam: Present: regular rate, normal rhythm. Absent: bradycardia, tachycardia, irregular rhythm, normal heart sounds, systolic murmur, diastolic murmur, clicks, JVD, S3, S4 - GI/Abdominal GI/Abdominal exam: Present: soft, normal bowel sounds, other (normoactive bowel sounds). Absent: distended, tenderness, guarding, rebound, rigid, diminished bowel sounds, hyperactive bowel sounds, hypoactive bowel sounds, organomegaly, mass, bruit, pulsatile mass, hernia - Extremities Exam Extremities exam: Present: normal inspection, full ROM. Absent: tenderness, normal capillary refill, pedal edema, joint swelling, calf tenderness - Back Exam Back exam: Present: normal inspection, full ROM. Absent: tenderness, CVA tenderness (R), CVA tenderness (L), muscle spasm, paraspinal tenderness, vertebral tenderness - Neurological Exam Neurological exam: Present: alert, oriented X3, CN II-XII intact (pt has ankle monitoring bracelet on R ankle) - Psychiatric Psychiatric exam: Present: normal affect, normal mood. Absent: depressed, agitated, anxious, flat affect, manic, homicidal ideation - Skin Skin exam: Present: warm, dry, intact, normal color. Absent: rash, cyanosis, diaphoretic, erythema, urticaria, vesicles, petechiae, pallor, abrasion ED Course Vital Signs 10/10/21 10/11/21 10/11/21 20:36 04:18 04:31 Temperature 98.8 F Pulse Rate 88 80 Respiratory 18 17 Rate Blood Pressure 153/66 163/68 O2 Sat by Pulse 100 96 96 Oximetry 10/11/21 10/11/21 10/11/21 04:45 05:01 05:15 Temperature Pulse Rate 82 68 79 Respiratory 20 12 19 Rate Blood Pressure 163/68 130/60 130/60 O2 Sat by Pulse 97 94 97 Oximetry 10/11/21 10/11/21 10/11/21 05:31 05:46 06:01 Temperature Pulse Rate 75 71 75 Respiratory 12 12 11 L Rate Blood Pressure 130/60 130/60 O2 Sat by Pulse 95 96 94 Oximetry 10/11/21 10/11/21 10/11/21 06:15 06:31 06:45 Temperature Pulse Rate 71 70 71 Respiratory 12 13 12 Rate Blood Pressure 130/60 130/60 130/60 O2 Sat by Pulse 96 96 95 Oximetry 10/11/21 10/11/21 10/11/21 07:01 07:15 07:17 Temperature Pulse Rate 72 79 Respiratory 11 L 13 Rate Blood Pressure 136/62 147/68 O2 Sat by Pulse 96 96 97 Oximetry 10/11/21 07:26 Temperature 97 F L Pulse Rate Respiratory Rate Blood Pressure O2 Sat by Pulse Oximetry - Reevaluation(s) Reevaluation #1: 10/11/21 07:19: pt is well appearing; vss; pain o/10; pt requesting food and discharge back to [facility] facility Reevaluation #2: 10/11/21 07:39 pt denies any complaints; pain 0/10; she appears well, and is no distress NIKO score - Niko Score Age > 65: (0) No Aspirin use within the Past 7 Days: (0) No 3 or more CAD Risk Factors: (1) Yes 2 or more Angina events in past 24 hrs: (0) No Known CAD with more than 50% Stenosis: (0) No Elevated Cardiac Markers: (0) No ST Deviation Greater than 0.5mm: (0) No NIKO Score: 1 ED Medical Decision Making - Lab Data Result diagrams: 10/10/21 23:22 10/10/21 23:22 - EKG Data -: EKG Interpreted by Me EKG shows normal: sinus rhythm Rate: normal - EKG Data When compared to previous EKG there are: no significant change Interpretation: no acute changes, normal EKG - Radiology Data Radiology results: report reviewed - Medical Decision Making 61-year-old obese female with multiple medical comorbidities presents for evaluation of complaints of intermittent left left-sided chest pain without any other symptoms except reports of acid reflux. Vital signs stable. Patient arrived to the emergency department last night and had serial cardiac enzymes performed prior to this provider shift time start this morning. Serial troponins are normal. Heart score 3. This x-ray demonstrates no pneumothorax, no infiltrates, no large obstructing cardial thoracic masses. Chest x-ray grossly unremarkable. Patient is asymptomatic here and is requesting to be discharged home. Patient advised to follow-up with her primary care doctor for a new referral to for search engine optimization analyst. Per my clinical assessment no further emergent work-up is warranted at this time. Patient deemed stable for discharge to home. Prior to discharge she was given strict verbal and written return precautions. She verbalized understa nding and agreement the plan of care Critical care attestation.: If time is entered above; I have spent that time in minutes in the direct care of this critically ill patient, excluding procedure time. ED Disposition Clinical Impression: Chest pain Disposition: 03 [facility] Is pt being admited?: No Does the pt Need Aspirin: No Condition: Stable Instructions: Nonspecific Chest Pain, Adult Additional Instructions: FOLLOW UP WITH YOUR PRIMARY CARE DOCTOR WITHIN 1-2 DAYS FOR REASSESSMENT. RETURN TO THE NEAREST EMERGENCY DEPARTMENT SOON POSSIBLE IF YOU DEVELOP SEVERE OR WORSENING CHEST PAIN, SHORTNESS OF BREATH, DIFFICULTY BREATHING, LIGHTHEADEDNESS, DIZZINESS, VOMITING, OR IF ANY OTHER NEW WORRISOME SYMPTOMS DEVELOP. Referrals: BREONNA AYOUB MD [Primary Care Provider] - 3-5 Days
[2021-10-11 08:39] VITALS: BP 138/62
--- NOTE | 2021-10-13 17:21 | Electrocardiograph Report ---
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
== END 2021-10-11 08:40 ==
LOC: ED 20:35
DX: R07.9 Chest pain, unspecified (principal); I10 Essential (primary) hypertension; E11.9 Type 2 diabetes mellitus without complications; R56.9 Unspecified convulsions; J44.9 Chronic obstructive pulmonary disease, unspecified; F03.90 Unspecified dementia, unspecified severity, without behavioral disturbance, psychotic disturbance, mood disturbance, and anxiety; E78.00 Pure hypercholesterolemia, unspecified; F31.0 Bipolar disorder, current episode hypomanic; F20.0 Paranoid schizophrenia; G47.30 Sleep apnea, unspecified; Z90.89 Acquired absence of other organs; Z90.710 Acquired absence of both cervix and uterus; Z98.890 Other specified postprocedural states; Z88.1 Allergy status to other antibiotic agents; Z88.8 Allergy status to other drugs, medicaments and biological substances; Z91.018 Allergy to other foods
CPT/HCPCS: 36415; 71046; 80053; 84484; 85025; 93005; 99284

== ENCOUNTER 2021-11-12 19:45 | Emergency (ER) | payer MEDICARE ==
[2021-11-12] MEDS ORDERED: DEXTROSE 50% IN WATER (25GM) 50 ML SYRINGE IV PRN (21:13)
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
[2021-11-12 22:05] LABS: Hematocrit 35.6 % (30.3-42.9); Hemoglobin 11.3 gm/dl (10.1-14.3); Mean Corpuscular HGB Conc 32 % (30-34); Mean Corpuscular Volume 88 fl (79-97); Platelet Count 321 K/mm3 (140-440); Red Blood Count 4.05 M/mm3 (3.65-5.03); Red Cell Distribution Width 13.8 % (13.2-15.2)
[2021-11-12] MEDS ORDERED: ONDANSETRON 4 MG ODT TAB PO PRN (22:38)
[2021-11-12] MEDS ORDERED: MELATONIN 5 MG TAB PO PRN (22:38)
[2021-11-12] MEDS ORDERED: GABAPENTIN 400 MG CAP PO PRN (22:38)
[2021-11-12 22:47] LABS: Alanine Aminotransferase 12 units/L (7-56); Albumin 4.3 g/dL (3.9-5); BUN/Creatinine Ratio 13; Blood Urea Nitrogen 12 mg/dL (7-17); Calcium 9.5 mg/dL (8.4-10.2); Hemolysis Index 6
[2021-11-12] MEDS: LACOSAMIDE 100 MG TAB PO SCH (23:24)
[2021-11-13] MEDS: INSULIN LISPRO 100 UNIT/ML SUB-Q SCH ×3 (00:23→12:14)
[2021-11-13 09:08] VITALS: BP 160/87
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
[2021-11-13] MEDS ORDERED: LOSARTAN 50 MG TAB PO SCH (10:00)
[2021-11-13] MEDS ORDERED: HALOPERIDOL 10 MG PO SCH (10:00)
[2021-11-13] MEDS ORDERED: CETIRIZINE 10 MG TAB PO SCH (10:00)
[2021-11-13] MEDS ORDERED: FLUoxetine 20 MG CAP PO SCH (10:00)
[2021-11-13] MEDS ORDERED: NON-FORMULARY EACH (Fluoxetine Hcl [Prozac] 40 MG Capsule) PO SCH (10:00)
[2021-11-13] MEDS ORDERED: OMEGA-3 FATTY ACIDS/FISH OIL 1 GRAM CAP PO SCH (10:00)
[2021-11-13 10:54] LABS: Amphetamine Screen,Urine Negative; Benzodiazepines Screen,Urine Negative; Cannabinoid Screen,Urine Negative; Cocaine Screen,Urine Negative; Methadone Screen,Urine Negative; Opiate Screen,Urine Negative
[2021-11-13 11:03] LABS: Bilirubin,Urine NEG (Negative); Blood,Urine NEG (Negative); Color,Urine Yellow (Yellow); Urobilinogen,Urine < 2.0 mg/dL (<2.0)
[2021-11-13 11:22] LABS: Mucus,Urine FEW /HPF
[2021-11-13] MEDS ORDERED: DIVALPROEX DR 125 MG TAB PO SCH (11:30)
[2021-11-13] MEDS: LACOSAMIDE 100 MG TAB PO SCH (11:59)
--- NOTE | 2021-11-13 14:36 | Event Note ---
Date: 11/13/21 Patient assessed by mental health. Recommended inpatient treatment. She has been accepted for transfer to [facility].
[2021-11-13] MEDS ORDERED: DONEPEZIL 10 MG TAB PO SCH (22:00)
[2021-11-13] MEDS ORDERED: HALOPERIDOL 5 MG TAB PO SCH (22:00)
[2021-11-13] MEDS ORDERED: DONEPEZIL 5 MG TAB PO SCH (22:00)
[2021-11-13] MEDS ORDERED: INSULIN GLARGINE 100 UNITS/ML SUB-Q SCH (22:00)
[2021-11-13] MEDS ORDERED: traZODone 50 MG TAB PO SCH ×2 (22:00)
== END 2021-11-13 15:13 ==
LOC: ED 19:45
DX: Z13.30 Encounter for screening examination for mental health and behavioral disorders, unspecified (principal); Z20.822 Contact with and (suspected) exposure to COVID-19; I10 Essential (primary) hypertension; E11.9 Type 2 diabetes mellitus without complications; R56.9 Unspecified convulsions; J45.909 Unspecified asthma, uncomplicated; F03.90 Unspecified dementia, unspecified severity, without behavioral disturbance, psychotic disturbance, mood disturbance, and anxiety; Z90.49 Acquired absence of other specified parts of digestive tract; Z88.6 Allergy status to analgesic agent; Z88.1 Allergy status to other antibiotic agents; Z91.02 Food additives allergy status; Z79.899 Other long term (current) drug therapy
CPT/HCPCS: 36415; 80053; 80307; 81001; 82962; 85027; 96372; 99285; U0003; 80320; J3490; Q9967; G0480; J1815; Q0162

== ENCOUNTER 2021-12-23 22:28 | Observation (INO) | payer MEDICARE ==
[2021-12-23] MEDS ORDERED: ASPIRIN 325 MG TAB PO ONE (23:55)
[2021-12-24] MEDS ORDERED: MORPHINE 4 MG/1 ML INJ IV ONE ×3 (00:02→03:09)
[2021-12-24] MEDS ORDERED: NITROGLYCERIN 0.4 MG TAB SUBL SL ONE (00:02)
[2021-12-24] MEDS ORDERED: ACETAMINOPHEN 325 MG TAB PO ONE (00:02)
[2021-12-24 00:56] LABS: Basophils # (Auto) 0.1 K/mm3 (0.0-0.1); Basophils % (Auto) 0.4 % (0.0-1.8); Eosinophils # (Auto) 0.3 K/mm3 (0.0-0.4); Eosinophils % (Auto) 2.3 % (0.0-4.3); Hemoglobin 11.3 gm/dl (10.1-14.3); Lymphocytes % (Auto) 32.8 % (13.4-35.0); Mean Corpuscular HGB Conc 34 % (30-34); Mean Corpuscular Volume 87 fl (79-97); Monocytes # (Auto) 0.7 K/mm3 (0.0-0.8); Platelet Count 265 K/mm3 (140-440); Red Cell Distribution Width 13.9 % (13.2-15.2)
[2021-12-24 01:10] LABS: Alanine Aminotransferase 10 units/L (7-56); Blood Urea Nitrogen 20 mg/dL (7-17); Calcium 9.6 mg/dL (8.4-10.2); Hemolysis Index 2
[2021-12-24 01:12] LABS: BUN/Creatinine Ratio 29
--- NOTE | 2021-12-24 01:26 | Emergency Department Report ---
ED Chest Pain HPI - General Chief Complaint: Chest Pain Stated Complaint: CHEST PAIN Time Seen by Provider: 12/24/21 00:01 Source: EMS Mode of arrival: Stretcher Limitations: No Limitations - History of Present Illness Initial Comments: Patient is a 61-year-old female who presents emergency department complaint of chest pain. Patient states she has history of hypertension, diabetes, CHF, gastroparesis. She denies any history of previous IA. She does note that she has had a stress test and echo but it was over a year ago. Patient also reports a headache. She describes it as a dull frontal and rates it at a 7. Headache has been present for few days. Chest pain started on today. She notes no aggravating or alleviating factors. She does notice it worsens with exertion. She states it feels like elephant is on her chest. She rates this as a 9. She also notes chest tightness. She states with her history of CHF she thinks that her weight has been down and she denies any lower extremity swelling. Severity scale (0 -10): 9 - Related Data Home Medications Medication Instructions Recorded Confirmed Last Taken FLUoxetine HCL [PROzac] 40 mg PO QDAY 07/07/15 10/15/15 06/07/15 Gabapentin 300 mg PO BID 07/07/15 10/15/15 06/07/15 Haloperidol Decanoate [Haldol 100 mg IM QMONTH 07/07/15 10/15/15 06/07/15 Decanoate] Insulin Glargine [Lantus VIAL] 15 units SQ QHS 07/07/15 10/15/15 06/07/15 Insulin Lispro Protamin/Lispro 8 units SQ TID 07/07/15 10/15/15 06/07/15 [HumaLOG Mix 50-50 Kwikpen] Losartan [Cozaar] 60 mg PO BID 07/07/15 10/15/15 06/07/15 Topiramate [Topamax] 200 mg PO BID 07/07/15 10/15/15 06/07/15 hydrOXYzine PAMOATE [Vistaril] 25 mg PO QDAY 07/07/15 10/15/15 06/07/15 Haldol 10 mg PO BID 10/15/15 10/15/15 Unknown Januvia 100 mg PO DAILY 10/15/15 10/15/15 Unknown Lipitor 40 mg PO HS 10/15/15 10/15/15 Unknown Temazepam 15 mg PO HS 10/15/15 10/15/15 Unknown Previous Rx's Medication Instructions Recorded Last Taken Type Ibuprofen [Motrin] 600 mg PO Q8H PRN #30 tablet 04/26/17 Unknown Rx Albuterol Mdi (or & Nicu Only) 2 puff IH QID PRN #1 inhalation 09/19/17 Unknown Rx [ProAir HFA Inhaler] Azithromycin [Zithromax Z-TIFFANIE] 250 mg PO DAILY #6 tablet 09/19/17 Unknown Rx Benzonatate [Tessalon Perle] 100 mg PO TID #12 capsule 09/19/17 Unknown Rx HYDROcodone/APAP 5-325 [[place] 1 each PO Q4HR PRN #12 tablet 09/19/17 Unknown Rx 5/325] Ondansetron [Zofran Odt] 4 mg PO Q8HR PRN #14 tab.rapdis 05/16/18 Unknown Rx cephALEXin [Keflex] 500 mg PO Q8HR #28 cap 05/16/18 Unknown Rx Ibuprofen [Motrin] 800 mg PO Q8HR PRN #30 tablet 10/27/18 Unknown Rx Permethrin 5% [Acticin 5% CREAM] 1 applicatio TP ONCE #2 tube 10/27/18 Unknown Rx traMADoL [Ultram 50 MG tab] 50 mg PO Q6HR PRN #10 tablet 01/03/20 Unknown Rx Allergies Allergy/AdvReac Type Severity Reaction Status Date / Time ciprofloxacin HCl Allergy Rash Verified 12/14/21 05:02 [From Cipro] erythromycin base Allergy Rash Verified 12/14/21 05:02 [Erythromycin Base] lithium [[place]] Allergy Headache Verified 12/14/21 05:02 nitrofurantoin Allergy Hives Verified 12/14/21 05:02 macrocrystalline [From Macrodantin] sulfamethoxazole Allergy Hives Verified 12/14/21 05:02 [From Bactrim] trimethoprim [From Bactrim] Allergy Hives Verified 12/14/21 05:02 orange juice AdvReac MOUTH SORES Verified 12/14/21 05:02 pineapple AdvReac MOUTH SORES Verified 12/14/21 05:02 mushrooms Allergy Swelling Uncoded 12/14/21 05:02 Heart Score - HEART Score History: Moderately suspicious EKG: Normal Age: 45-65 Risk factors: > 3 risk factors or hx of atherosclerotic disease Troponin: < normal limit HEART Score: 4 - EKG Read Time Time EKG Completed: 22:59 EKG Read Time: 23:03 ED Review of Systems ROS: Stated complaint: CHEST PAIN Other details as noted in HPI Constitutional: denies: chills, fever Eyes: denies: eye pain, eye discharge, vision change ENT: denies: ear pain, throat pain Respiratory: denies: cough, shortness of breath, wheezing Cardiovascular: chest pain. denies: palpitations Endocrine: no symptoms reported Gastrointestinal: denies: abdominal pain, nausea, diarrhea Genitourinary: denies: urgency, dysuria, discharge Musculoskeletal: denies: back pain, joint swelling, arthralgia Skin: denies: rash, lesions Neurological: headache. denies: weakness, paresthesias Psychiatric: denies: anxiety, depression Hematological/Lymphatic: denies: easy bleeding, easy bruising ED Past Medical Hx - Past Medical History Previous Medical History?: Yes Hx Hypertension: Yes Hx Diabetes: Yes Hx Seizures: Yes (AUGUST 2018) Hx Psychiatric Treatment: Yes ([facility], [place], etc.) Hx Asthma: Yes Hx COPD: Yes Hx Dementia: Yes Additional medical history: HIGH CHOLESTEROL, paranoid schizophrenia, PTSD, psychosis. SLEEP APNEA - Surgical History Past Surgical History?: Yes Hx Cholecystectomy: Yes Hx Appendectomy: Yes Additional Surgical History: HYSTERECTOMY, knee surgery,TONSILLECTOMY - Social History Smoking Status: Never Smoker Substance Use Type: None - Medications Home Medications: Home Medications Medication Instructions Recorded Confirmed Last Taken Type FLUoxetine HCL [PROzac] 40 mg PO QDAY 07/07/15 10/15/15 06/07/15 History Gabapentin 300 mg PO BID 07/07/15 10/15/15 06/07/15 History Haloperidol Decanoate [Haldol 100 mg IM QMONTH 07/07/15 10/15/15 06/07/15 History Decanoate] Insulin Glargine [Lantus VIAL] 15 units SQ QHS 07/07/15 10/15/15 06/07/15 History Insulin Lispro Protamin/Lispro 8 units SQ TID 07/07/15 10/15/15 06/07/15 History [HumaLOG Mix 50-50 Kwikpen] Losartan [Cozaar] 60 mg PO BID 07/07/15 10/15/15 06/07/15 History Topiramate [Topamax] 200 mg PO BID 07/07/15 10/15/15 06/07/15 History hydrOXYzine PAMOATE [Vistaril] 25 mg PO QDAY 07/07/15 10/15/15 06/07/15 History Haldol 10 mg PO BID 10/15/15 10/15/15 Unknown History Januvia 100 mg PO DAILY 10/15/15 10/15/15 Unknown History Lipitor 40 mg PO HS 10/15/15 10/15/15 Unknown History Temazepam 15 mg PO HS 10/15/15 10/15/15 Unknown History Ibuprofen [Motrin] 600 mg PO Q8H PRN #30 tablet 04/26/17 Unknown Rx Albuterol Mdi (or & Nicu Only) 2 puff IH QID PRN #1 inhalation 09/19/17 Unknown Rx [ProAir HFA Inhaler] Azithromycin [Zithromax Z-TIFFANIE] 250 mg PO DAILY #6 tablet 09/19/17 Unknown Rx Benzonatate [Tessalon Perle] 100 mg PO TID #12 capsule 09/19/17 Unknown Rx HYDROcodone/APAP 5-325 [[place] 1 each PO Q4HR PRN #12 tablet 09/19/17 Unknown Rx 5/325] Ondansetron [Zofran Odt] 4 mg PO Q8HR PRN #14 tab.rapdis 05/16/18 Unknown Rx cephALEXin [Keflex] 500 mg PO Q8HR #28 cap 05/16/18 Unknown Rx Ibuprofen [Motrin] 800 mg PO Q8HR PRN #30 tablet 10/27/18 Unknown Rx Permethrin 5% [Acticin 5% CREAM] 1 applicatio TP ONCE #2 tube 10/27/18 Unknown Rx traMADoL [Ultram 50 MG tab] 50 mg PO Q6HR PRN #10 tablet 01/03/20 Unknown Rx ED Physical Exam - General Limitations: No Limitations General appearance: alert, in no apparent distress - Head Head exam: Present: atraumatic, normocephalic - Eye Eye exam: Present: normal appearance - ENT ENT exam: Present: mucous membranes moist - Neck Neck exam: Present: normal inspection - Respiratory Respiratory exam: Present: normal lung sounds bilaterally. Absent: respiratory distress - Cardiovascular Cardiovascular Exam: Present: regular rate, normal rhythm. Absent: systolic murmur, diastolic murmur, rubs, gallop - GI/Abdominal GI/Abdominal exam: Present: soft, normal bowel sounds - Extremities Exam Extremities exam: Present: normal inspection - Back Exam Back exam: Present: normal inspection - Neurological Exam Neurological exam: Present: alert, oriented X3 - Psychiatric Psychiatric exam: Present: normal affect, normal mood - Skin Skin exam: Present: warm, dry, intact, normal color. Absent: rash ED Course Vital Signs 12/23/21 12/23/21 12/23/21 22:47 23:30 23:54 Temperature 98.7 F Pulse Rate 85 78 77 Respiratory 18 18 15 Rate Blood Pressure 136/90 Blood Pressure 147/76 [Left] O2 Sat by Pulse 98 97 97 Oximetry 12/24/21 12/24/21 12/24/21 00:30 00:31 01:01 Temperature Pulse Rate 77 Respiratory 18 18 18 Rate Blood Pressure 150/75 Blood Pressure [Left] O2 Sat by Pulse Oximetry 12/24/21 12/24/21 01:30 01:45 Temperature Pulse Rate Respiratory 18 18 Rate Blood Pressure Blood Pressure [Left] O2 Sat by Pulse Oximetry - Reevaluation(s) Reevaluation #1: 12/24/21 01:27 Initial troponin is negative. Patient's heart score is a 4. Pending repeat tr oponin patient may be admitted to the hospitalist for further management. NIKO score - Niko Score Age > 65: (0) No Aspirin use within the Past 7 Days: (0) No 3 or more CAD Risk Factors: (1) Yes 2 or more Angina events in past 24 hrs: (0) No Known CAD with more than 50% Stenosis: (0) No Elevated Cardiac Markers: (0) No ST Deviation Greater than 0.5mm: (0) No NIKO Score: 1 ED Medical Decision Making - Lab Data Result diagrams: 12/24/21 00:19 12/24/21 00:19 - EKG Data -: EKG Interpreted by Ne EKG shows normal: sinus rhythm Rate: normal - Radiology Data Radiology results: report reviewed, image reviewed - Medical Decision Making Patient is a 61-year-old female presents to the emergency department with complaint of chest pain. Patient has significant risk factor for ACS including hypertension diabetes CHF gastroparesis. This time to ACS also considered is pneumonia, aortic dissection, CHF exacerbation. Plan for basic labs, EKG, serial troponins, chest x-ray and reassessment. Patient will also be provided with pain control. Critical care attestation.: If time is entered above; I have spent that time in minutes in the direct care of this critically ill patient, excluding procedure time. ED Disposition Clinical Impression: Chest pain with high risk of acute coronary syndrome, Hyperglycemia without ketosis Disposition: 09 ADMITTED INPATIENT Is pt being admited?: Yes Does the pt Need Aspirin: Yes Condition: Stable Instructions: Nonspecific Chest Pain, Adult
--- NOTE | 2021-12-24 02:19 | XRay Report ---
CHEST 1 VIEW INDICATION / CLINICAL INFORMATION: chest pain. COMPARISON: Chest x-ray 10/10/2021 FINDINGS: SUPPORT DEVICES: None. HEART / MEDIASTINUM: Heart size is within normal limits. Mediastinal contour demonstrates no signific ant abnormality. LUNGS / PLEURA: Lungs are clear for degree of inspiration and technique utilized. BONES: No significant osseous abnormality. ADDITIONAL FINDINGS: No significant additional findings. IMPRESSION: 1. No active cardiopulmonary disease. Signer Name: Chadd Santiago II, MD Signed: 12/24/2021 2:15 AM Workstation Name: [id number]
[2021-12-24] MEDS ORDERED: ONDANSETRON 4 MG/2 ML INJ IV PRN (03:11)
[2021-12-24] MEDS ORDERED: ACETAMINOPHEN 325 MG TAB PO PRN ×2 (03:11→04:07)
[2021-12-24] MEDS ORDERED: oxyCODONE /ACETAMINOPHEN 5-325MG TAB PO PRN (03:11)
[2021-12-24] MEDS ORDERED: MORPHINE 4 MG/1 ML INJ IV PRN (04:07)
[2021-12-24] MEDS ORDERED: DEXTROSE 50% IN WATER (25GM) 50 ML SYRINGE IV PRN (04:07)
[2021-12-24] MEDS ORDERED: NITROGLYCERIN 0.4 MG TAB SUBL SL PRN (04:07)
--- NOTE | 2021-12-24 04:19 | History and Physical Report ---
History of Present Illness Date of examination: 12/24/21 Date of admission: 12/24/21 03:11 Chief complaint: Chest pain History of present illness: 61-year-old female with history of hypertension, diabetes, CHF, gastroparesis. She denies any history of previous KS was brought to the emergency room because of chest pain which feels like elephant is on her chest. She rates this as a 9. She also notes chest tightness. . She does note that she has had a stress t est and echo but it was over a year ago. Patient also reports a headache. She describes it as a dull frontal and rates it at a 7. Headache has been present for few days. Chest pain started on today. She notes no aggravating or alleviating factors. She does notice it worsens with exertion. She states with her history of CHF she thinks that her weight has been down and she denies any lower extremity swelling. In the emergency room initial cardiac enzyme is negative troponin is 0.010. So we are going to admit the patient and put the patient on chest pain pathway Past History Past Medical History: COPD, diabetes, hypertension, seizures, other (Dementia, high cholesterol, paranoid schizophrenia, PTSD, psychosis, sleep apnea) Past Surgical History: appendectomy, cholecystectomy, Other ( HYSTERECTOMY, knee surgery,TONSILLECTOMY) Social history: no significant social history Family history: hypertension Medications and Allergies Allergies Allergy/AdvReac Type Severity Reaction Status Date / Time ciprofloxacin HCl Allergy Rash Verified 12/14/21 05:02 [From Cipro] erythromycin base Allergy Rash Verified 12/14/21 05:02 [Erythromycin Base] lithium [[place]] Allergy Headache Verified 12/14/21 05:02 nitrofurantoin Allergy Hives Verified 12/14/21 05:02 macrocrystalline [From Macrodantin] sulfamethoxazole Allergy Hives Verified 12/14/21 05:02 [From Bactrim] trimethoprim [From Bactrim] Allergy Hives Verified 12/14/21 05:02 orange juice AdvReac MOUTH SORES Verified 12/14/21 05:02 pineapple AdvReac MOUTH SORES Verified 12/14/21 05:02 mushrooms Allergy Swelling Uncoded 12/14/21 05:02 Home Medications Medication Instructions Recorded Confirmed Last Taken Type FLUoxetine HCL [PROzac] 40 mg PO QDAY 03/12/1410/15/15 06/07/15 History Gabapentin 300 mg PO BID 07/07/15 10/15/15 06/07/15 History Haloperidol Decanoate [Haldol 100 mg IM QMONTH 07/07/15 10/15/15 06/07/15 History Decanoate] Insulin Glargine [Lantus VIAL] 15 units SQ QHS 07/07/15 10/15/15 06/07/15 History Insulin Lispro Protamin/Lispro 8 units SQ TID 07/07/15 10/15/15 06/07/15 History [HumaLOG Mix 50-50 Kwikpen] Losartan [Cozaar] 60 mg PO BID 07/07/15 10/15/15 06/07/15 History Topiramate [Topamax] 200 mg PO BID 07/07/15 10/15/15 06/07/15 History hydrOXYzine PAMOATE [Vistaril] 25 mg PO QDAY 07/07/15 10/15/15 06/07/15 History Haldol 10 mg PO BID 10/15/15 10/15/15 Unknown History Januvia 100 mg PO DAILY 10/15/15 10/15/15 Unknown History Lipitor 40 mg PO HS 10/15/15 10/15/15 Unknown History Temazepam 15 mg PO HS 10/15/15 10/15/15 Unknown History Ibuprofen [Motrin] 600 mg PO Q8H PRN #30 tablet 04/26/17 Unknown Rx Albuterol Mdi (or & Nicu Only) 2 puff IH QID PRN #1 inhalation 09/19/17 Unknown Rx [ProAir HFA Inhaler] Azithromycin [Zithromax Z-TIFFANIE] 250 mg PO DAILY #6 tablet 09/19/17 Unknown Rx Benzonatate [Tessalon Perle] 100 mg PO TID #12 capsule 09/19/17 Unknown Rx HYDROcodone/APAP 5-325 [[place] 1 each PO Q4HR PRN #12 tablet 09/19/17 Unknown Rx 5/325] Ondansetron [Zofran Odt] 4 mg PO Q8HR PRN #14 tab.rapdis 05/16/18 Unknown Rx cephALEXin [Keflex] 500 mg PO Q8HR #28 cap 05/16/18 Unknown Rx Ibuprofen [Motrin] 800 mg PO Q8HR PRN #30 tablet 10/27/18 Unknown Rx Permethrin 5% [Acticin 5% CREAM] 1 applicatio TP ONCE #2 tube 10/27/18 Unknown Rx traMADoL [Ultram 50 MG tab] 50 mg PO Q6HR PRN #10 tablet 01/03/20 Unknown Rx Active Meds: Active Medications Acetaminophen (Acetaminophen 325 Mg Tab) 650 mg PO Q4H PRN PRN Reason: Pain MILD(1-3)/Fever >100.5/SMITH Ondansetron HCl (Ondansetron 4 Mg/2 Ml Inj) 4 mg IV Q8H PRN PRN Reason: Nausea And Vomiting Oxycodone/Acetaminophen (Oxycodone /Acetaminophen 5-325mg Tab) 1 tab PO Q6H PRN PRN Reason: Pain, Moderate (4-6) Sodium Chloride (Sodium Chloride 0.9% 10 Ml Flush Syringe) 10 ml IV BID ROSA Sodium Chloride (Sodium Chloride 0.9% 10 Ml Flush Syringe) 10 ml IV PRN PRN PRN Reason: LINE FLUSH Sodium Chloride (Sodium Chloride 0.9% 10 Ml Flush Syringe) 10 ml IV PRN PRN PRN Reason: LINE FLUSH Tramadol HCl (Tramadol 50 Mg Tab) 50 mg PO Q6H PRN PRN Reason: Pain, Moderate (4-6) Review of Systems All systems: negative Cardiovascular: chest pain, shortness of breath, dyspnea on exertion Exam - Constitutional Vitals: Temp Pulse Resp BP Pulse Ox 98.7 F 83 12 143/90 97 12/23/21 22:47 12/24/21 03:45 12/24/21 03:45 12/24/21 03:45 12/24/21 03:45 General appearance: Present: no acute distress, well-nourished - EENT Eyes: Present: PERRL ENT: hearing intact, clear oral mucosa - Neck Neck: Present: supple, normal ROM - Respiratory Respiratory effort: normal Respiratory: bilateral: CTA - Cardiovascular Heart Sounds: Present: S1 & S2. Absent: rub, click - Extremities Extremities: pulses symmetrical, No edema Peripheral Pulses: within normal limits - Abdominal General gastrointestinal: Present: soft, non-tender, non-distended, normal bowel sounds Female genitourinary: Present: normal - Integumentary Integumentary: Present: clear, warm, dry - Musculoskeletal Musculoskeletal: gait normal, strength equal bilaterally - Psychiatric Psychiatric: appropriate mood/affect, intact judgment & insight - Neurologic Neurologic: CNII-XII intact, moves all extremities HEART Score - HEART Score EKG: Normal Age: 45-65 Risk factors: > 3 risk factors or hx of atherosclerotic disease Troponin: Troponin T < 0.010 ng/mL (0.00-0.029) 12/24/21 03:16 Troponin: < normal limit Results - Labs CBC & Chem 7: 12/24/21 00:19 12/24/21 00:19 Labs: Laboratory Last Values WBC 12.3 K/mm3 (4.5-11.0) H 12/24/21 00:19 RBC 3.80 M/mm3 (3.65-5.03) 12/24/21 00:19 Hgb 11.3 gm/dl (10.1-14.3) 12/24/21 00:19 Hct 33.0 % (30.3-42.9) 12/24/21 00:19 MCV 87 fl (79-97) 12/24/21 00:19 MCH 30 pg (28-32) 12/24/21 00:19 MCHC 34 % (30-34) 12/24/21 00:19 RDW 13.9 % (13.2-15.2) 12/24/21 00:19 Plt Count 265 K/mm3 (140-440) 12/24/21 00:19 Lymph % (Auto) 32.8 % (13.4-35.0) 12/24/21 00:19 [place] % (Auto) 6.0 % (0.0-7.3) 12/24/21 00:19 Eos % (Auto) 2.3 % (0.0-4.3) 12/24/21 00:19 Baso % (Auto) 0.4 % (0.0-1.8) 12/24/21 00:19 Lymph # (Auto) 4.0 K/mm3 (1.2-5.4) 12/24/21 00:19 [place] # (Auto) 0.7 K/mm3 (0.0-0.8) 12/24/21 00:19 Eos # (Auto) 0.3 K/mm3 (0.0-0.4) 12/24/21 00:19 Baso # (Auto) 0.1 K/mm3 (0.0-0.1) 12/24/21 00:19 Seg Neutrophils % 58.5 % (40.0-70.0) 12/24/21 00:19 Seg Neutrophils # 7.2 K/mm3 (1.8-7.7) 12/24/21 00:19 Sodium 137 mmol/L (137-145) 12/24/21 00:19 Potassium 4.4 mmol/L (3.6-5.0) 12/24/21 00:19 Chloride 100.9 mmol/L (98-107) 12/24/21 00:19 Carbon Dioxide 27 mmol/L (22-30) 12/24/21 00:19 Anion Gap 14 mmol/L 12/24/21 00:19 BUN 20 mg/dL (7-17) H 12/24/21 00:19 Creatinine 0.7 mg/dL (0.6-1.2) 12/24/21 00:19 Estimated GFR > 60 ml/min 12/24/21 00:19 BUN/Creatinine Ratio 29 % 12/24/21 00:19 Glucose 189 mg/dL (65-100) H 12/24/21 00:19 Calcium 9.6 mg/dL (8.4-10.2) 12/24/21 00:19 Magnesium 2.10 mg/dL (1.7-2.3) 12/24/21 00:19 Total Bilirubin 0.20 mg/dL (0.1-1.2) 12/24/21 00:19 AST 13 units/L (5-40) 12/24/21 00:19 ALT 10 units/L (7-56) 12/24/21 00:19 Alkaline Phosphatase 82 units/L (35-129) 12/24/21 00:19 Troponin T < 0.010 ng/mL (0.00-0.029) 12/24/21 03:16 NT-Pro-B Natriuret Pep 178.5 pg/mL (0-900) 12/24/21 00:19 Total Protein 6.2 g/dL (6.3-8.2) L 12/24/21 00:19 Albumin 4.0 g/dL (3.9-5) 12/24/21 00:19 Albumin/Globulin Ratio 1.8 % 12/24/21 00:19 - Imaging and Cardiology Chest x-ray: report reviewed Assessment and Plan VTE prophylaxis?: Mechanical Plan of care discussed with patient/family: Yes - Patient Problems (1) ACS (acute coronary syndrome) Current Visit: Yes Status: Acute Plan to address problem: Admit the patient to the medical telemetry. Aspirin 325 mg p.o. daily. Lipitor 40 mg p.o. daily. Nitroglycerin as needed. We do the serial cardiac enzymes. We also do a Lexiscan. Consult cardiology if needed (2) Hypertension Current Visit: Yes Status: Acute Plan to address problem: Losartan 60 mg p.o. twice daily. We continue the home medication (3) COPD (chronic obstructive pulmonary disease) Current Visit: Yes Status: Acute Plan to address problem: Oxygen via nasal cannula 3 L/min. DuoNeb by nebulizer every 4 hours. Albuterol via nebulizer every 4 hours as needed (4) High cholesterol Current Visit: Yes Status: Acute Plan to address problem: Lipitor 40 mg p.o. daily. We will recheck the lipid panel (5) Paranoid schizophrenia Current Visit: Yes Status: Acute Plan to address problem: Is stable. We continue the psych medication. Outpatient follow-up with psych (6) Hyperglycemia without ketosis Current Visit: Yes Status: Acute Plan to address problem: Accu-Chek every 6 hours fluid moderate dose Humalog coverage. Diabetic education. Continue the home medication (7) DVT prophylaxis Current Visit: Yes Status: Acute Plan to address problem: SCD for DVT prophylaxis. Protonix 40 mg p.o. daily for GI prophylaxis. Patient is a full code
[2021-12-24] MEDS ORDERED: SODIUM CHLORIDE 0.45% 1000 ML 1,000 ML IV SCH (05:00)
[2021-12-24] MEDS: traMADol 50 MG TAB PO PRN ×2 (05:20→10:57)
[2021-12-24 05:54] LABS: Basophils % (Auto) 0.2 % (0.0-1.8); Eosinophils # (Auto) 0.2 K/mm3 (0.0-0.4); Eosinophils % (Auto) 1.8 % (0.0-4.3); Hematocrit 34.9 % (30.3-42.9); Hemoglobin 11.3 gm/dl (10.1-14.3); Lymphocytes # (Auto) 2.9 K/mm3 (1.2-5.4); Lymphocytes % (Auto) 32.5 % (13.4-35.0); Mean Corpuscular HGB Conc 32 % (30-34); Mean Corpuscular Volume 88 fl (79-97); Monocytes # (Auto) 0.6 K/mm3 (0.0-0.8); Monocytes % (Auto) 6.4 % (0.0-7.3); Platelet Count 267 K/mm3 (140-440); Red Blood Count 3.96 M/mm3 (3.65-5.03); Red Cell Distribution Width 13.8 % (13.2-15.2)
[2021-12-24] MEDS ORDERED: cephALEXin 500 MG CAP PO SCH (06:00)
[2021-12-24] MEDS: INSULIN LISPRO 100 UNIT/ML SUB-Q SCH ×3 (06:00→18:34)
[2021-12-24 06:17] LABS: BUN/Creatinine Ratio 22; Blood Urea Nitrogen 20 mg/dL (7-17); Calcium 9.4 mg/dL (8.4-10.2); Hemolysis Index 5
[2021-12-24] MEDS ORDERED: REGADENOSON 0.4 MG/5 ML INJ IV ONE (09:03)
[2021-12-24] MEDS ORDERED: HALOPERIDOL 10 MG PO SCH (10:00)
[2021-12-24] MEDS ORDERED: TOPIRAMATE TAB 200 MG TAB PO SCH (10:00)
[2021-12-24] MEDS ORDERED: ASPIRIN EC 81 MG TAB PO SCH (10:00)
[2021-12-24] MEDS ORDERED: HALOPERIDOL 5 MG TAB PO SCH (10:00)
[2021-12-24] MEDS ORDERED: FLUoxetine 20 MG CAP PO SCH (10:00)
[2021-12-24] MEDS ORDERED: LOSARTAN 25 MG TAB PO SCH ×2 (10:00→11:00)
[2021-12-24] MEDS ORDERED: GABAPENTIN 300 MG CAP PO SCH (10:00)
[2021-12-24] MEDS ORDERED: NON-FORMULARY EACH (Fluoxetine Hcl [Prozac] 40 MG Capsule) PO SCH (10:00)
[2021-12-24] MEDS ORDERED: PANTOPRAZOLE 40 MG TAB PO SCH (10:00)
--- NOTE | 2021-12-24 10:40 | Electrocardiograph Report ---
[facility] Test Date: 2021-12-24 Test Time: 07:10:08 Pat Name: EVELIA FELDER Department: Room: A476 1 Gender: F Supervisor In Charge: JACI : 1960 Requested By: SHANELL NAYAK Order Number: [id number] Reading MD: Silverio Landaverde Measurements Intervals [place] Rate: 89 P: 37 CT: 167 QRS: 3 QRSD: 81 T: 29 QT: 363 QTc: 442 Interpretive Statements Sinus rhythm Compared to ECG 12/23/2021 22:59:56 No significant changes Electronically Signed On 12-24-2021 10:40:51 EDT by Silverio Landaverde
--- NOTE | 2021-12-24 10:40 | Electrocardiograph Report ---
[facility] Test Date: 2021-12-23 Test Time: 22:59:56 Pat Name: EVELIA FELDER Department: Room: A476 1 Gender: F Ice Grinder: LEVON : 1960 Requested By: DENIA ONEAL Order Number: [id number] Reading MD: Silverio Landaverde Measurements Intervals [place] Rate: 81 P: 31 [place]: 163 QRS: -9 QRSD: 84 T: 15 QT: 380 QTc: 442 Interpretive Statements Sinus rhythm Compared to ECG 10/10/2021 21:16:17 T-wave abnormality no longer present Electronically Signed On 12-24-2021 10:40:02 EDT by Silverio Landaverde
[2021-12-24] MEDS: BENZONATATE 100 MG CAP PO SCH ×2 (10:56→13:52)
--- NOTE | 2021-12-24 11:09 | Discharge Summary ---
Providers - Providers Date of Admission: 12/24/21 03:11 Date of discharge: 12/24/21 Attending physician: BIANCA STAHL MD 12/24/21 Consult to Cardiac Rehabilitation [CONS] Routine Reason For Exam: Phase I 12/24/21 04:07 Consult to Dietitian/Nutrition [CONS] Routine Physician Instructions: Reason For Exam: Reason for Consult: Diet education Primary care physician: BREONNA AYOUB Hospitalization Reason for admission: Acute coronary syndrome Condition: Stable Pertinent studies: Reviewed. Procedures: None. Hospital course: Patient is a 61-year-old female past medical history of congestive heart failure, insulin-dependent type 2 diabetes mellitus complicated by gastroparesis, hyperlipidemia, hypertension, paranoid schizophrenia, PTSD, obstructive sleep apnea, and morbid obesity who presented to the ED with complaints of 7/10 chest pain. The patient describes her pain as feeling as if an elephant is sitting on her chest. Patient denied any lower extremity swelling or shortness of breath. Patient endorses following with a cigar packer but was unable to per franklin any additional information outside of the fact that they are associated with [place] [facility]. In the ED, the patient was found to be hemodynamically stable with relatively unremarkable labs except for leukocytosis of 12.3. The patient had an unremarkable EKG and negative troponins x2. Patient also had unremarkable proBNP. Patient was administered aspirin 325 mg, and was admitted for acute coronary syndrome work-up with a goal of obtaining a myocardial perfusion scan. However, the patient refused the procedure. The patient will follow-up with cardiology in outpatient setting for scheduling a myocardial perfusion scan. Patient is medically cleared for discharge. Disposition: 01 HOME / SELF CARE / HOMELESS Final Discharge Diagnosis (Prints w/discharge instructions): Unstable angina, hypertension, insulin-dependent type 2 diabetes mellitus complicated by gastroparesis, hyperlipidemia, paranoid schizophrenia, PTSD, morbid obesity Time spent for discharge: 45 min Core Measure Documentation - Palliative Care Palliative Care/ Comfort Measures: Not Applicable - Core Measures Any of the following diagnoses?: history only Exam - Constitutional Vitals: Temp Pulse Resp BP Pulse Ox 97.9 F 87 20 153/66 94 12/24/21 08:07 12/24/21 09:06 12/24/21 09:06 12/24/21 08:07 12/24/21 09:06 General appearance: Present: no acute distress, well-nourished, obese - EENT Eyes: Present: PERRL, EOM intact ENT: hearing intact, clear oral mucosa, dentition normal - Neck Neck: Present: supple, normal ROM - Respiratory Respiratory effort: normal Respiratory: bilateral: CTA - Cardiovascular Rhythm: regular Heart Sounds: Present: S1 & S2 - Extremities Extremities: no ischemia, pulses intact, pulses symmetrical, No edema, normal temperature, normal color Peripheral Pulses: within normal limits - Abdominal General gastrointestinal: Present: soft, non-tender, non-distended, normal bowel sounds Female genitourinary: Present: deferred - Rectal Rectal Exam: deferred - Integumentary Integumentary: Present: clear, warm, dry - Musculoskeletal Musculoskeletal: strength equal bilaterally - Psychiatric Psychiatric: other (Paranoid at baseline; very limited insight) - Neurologic Neurologic: CNII-XII intact, moves all extremities - Allied Health Allied health notes reviewed: nursing Plan Activity: advance as tolerated Diet: low salt, diabetic Special Instructions: restrict fluid intake to (2 L/day) Additional Instructions: Patient is a 61-year-old female past medical history of congestive heart failure, insulin-dependent type 2 diabetes mellitus complicat ed by gastroparesis, hyperlipidemia, hypertension, paranoid schizophrenia, PTSD, obstructive sleep apnea, and morbid obesity who presented to the ED with complaints of 7/10 chest pain. The patient describes her pain as feeling as if an elephant is sitting on her chest. Patient denied any lower extremity swelling or shortness of breath. Patient endorses following with a cigar packer but was unable to per franklin any additional information outside of the fact that they are associated with [place] [facility]. In the ED, the patient was found to be hemodynamically stable with relatively unremarkable labs except for leukocytosis of 12.3. The patient had an unremarkable EKG and negative troponins x2. Patient also had unremarkable proBNP. Patient was administered aspirin 325 mg, and was admitted for acute coronary syndrome work-up with a goal of obtaining a myocardial perfusion scan. However, the patient refused the procedure. The patient will follow-up with cardiology in outpatient setting for scheduling a myocardial perfusion scan. Patient is medically cleared for discharge. Care Plan Goals: Patient is medically clear for discharge. Assessment: Patient is a 61-year-old female past medical history of congestive heart failure, insulin-dependent type 2 diabetes mellitus complicated by gastroparesis, hyperlipidemia, hypertension, paranoid schizophrenia, PTSD, obstructive sleep apnea, and morbid obesity who presented to the ED with complaints of 7/10 chest pain. The patient describes her pain as feeling as if an elephant is sitting on her chest. Patient denied any lower extremity swelling or shortness of breath. Patient endorses following with a cigar packer but was unable to per franklin any additional information outside of the fact that they are associated with [place]. In the ED, the patient was found to be hemodynamically stable with relatively unremarkable labs except for leukocytosis of 12.3. The patient had an unremarkable EKG and negative troponins x2. Patient also had unremarkable proBNP. Patient was administered aspirin 325 mg, and was admitted for acute coronary syndrome work-up with a goal of obtaining a myocardial perfusion scan. However, the patient refused the procedure. The patient will follow-up with cardiology in outpatient setting for scheduling a myocardial perfusion scan. Patient is medically cleared for discharge. Follow up with: NIEVES RASMUSSEN MD [Staff Physician] - 7 Days (Schedule outpatient Lexiscan) DAVID CHAVARRIA MD [Staff Physician] - 7 Days Prescriptions: AtorvaSTATin [Lipitor] 40 mg PO QHS #30 tablet Aspirin EC [Halfprin EC] 81 mg PO QDAY #30 tablet FLUoxetine HCL [PROzac] 40 mg PO QDAY #30 cap
[2021-12-24 15:57] VITALS: BP 119/65
--- NOTE | 2021-12-25 09:10 | Electrocardiograph Report ---
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
[2021-12-25] MEDS ORDERED: LOSARTAN 25 MG TAB PO SCH (10:00)
[2021-12-25] MEDS ORDERED: ASPIRIN EC 325 MG TAB PO SCH ×2 (10:00)
== END 2021-12-24 20:38 ==
LOC: ED 22:28 → INTOOBSV 12-24 03:11 → 4A 12-24 03:11
PROVIDERS: ADMIT Hospitalist; ATTEND Student in an Organized Health Care Education/Training Program
DX: I20.0 Unstable angina (principal); I10 Essential (primary) hypertension; J44.9 Chronic obstructive pulmonary disease, unspecified; E11.65 Type 2 diabetes mellitus with hyperglycemia; K31.84 Gastroparesis; E78.00 Pure hypercholesterolemia, unspecified; F20.0 Paranoid schizophrenia; R56.9 Unspecified convulsions; E78.5 Hyperlipidemia, unspecified; E66.01 Morbid (severe) obesity due to excess calories; F03.90 Unspecified dementia, unspecified severity, without behavioral disturbance, psychotic disturbance, mood disturbance, and anxiety; F43.10 Post-traumatic stress disorder, unspecified; G47.30 Sleep apnea, unspecified; Z90.49 Acquired absence of other specified parts of digestive tract; Z90.710 Acquired absence of both cervix and uterus; Z79.899 Other long term (current) drug therapy; Z98.890 Other specified postprocedural states; Z79.4 Long term (current) use of insulin; Z68.41 Body mass index [BMI] 40.0-44.9, adult
CPT/HCPCS: 36415; 71045; 80053; 82962; 83735; 83880; 84484; 85025; 93005; 96361; 96374; 96375; 96376; 99285; G0378; J2270; J2405; J7030; 80048; J3490; Q9967; J1815

== ENCOUNTER 2022-01-15 01:39 | Emergency (ER) | payer MEDICARE ==
[2022-01-15] MEDS ORDERED: ASPIRIN 325 MG TAB PO ONE (02:26)
[2022-01-15 03:04] LABS: Basophils % (Auto) 0.4 % (0.0-1.8); Eosinophils # (Auto) 0.2 K/mm3 (0.0-0.4); Eosinophils % (Auto) 2.5 % (0.0-4.3); Hematocrit 32.1 % (30.3-42.9); Hemoglobin 10.4 gm/dl (10.1-14.3); Lymphocytes # (Auto) 3.3 K/mm3 (1.2-5.4); Lymphocytes % (Auto) 33.6 % (13.4-35.0); Mean Corpuscular HGB Conc 33 % (30-34); Mean Corpuscular Volume 89 fl (79-97); Monocytes # (Auto) 0.6 K/mm3 (0.0-0.8); Monocytes % (Auto) 6.1 % (0.0-7.3); Platelet Count 286 K/mm3 (140-440); Red Blood Count 3.62 M/mm3 (3.65-5.03)
[2022-01-15 03:24] LABS: Alanine Aminotransferase 16 units/L (7-56); Albumin 4.1 g/dL (3.9-5); BUN/Creatinine Ratio 27; Blood Urea Nitrogen 38 mg/dL (7-17); Hemolysis Index 0
--- NOTE | 2022-01-15 03:41 | XRay Report ---
CHEST 1 VIEW INDICATION / CLINICAL INFORMATION: chestpain. COMPARISON: 12/24/2021 FINDINGS: SUPPORT DEVICES: None. HEART / MEDIASTINUM: No significant abnormality. LUNGS / PLEURA: No significant pulmonary or pleural abnormality. No pneumothorax. ADDITIONAL FINDINGS: No significant additional findings. IMPRESSION: 1. No acute findings. No interval change. Signer Name: Jazmin Contreras MD Signed: 01/15/2022 3:37 AM Workstation Name: [id number]
[2022-01-15] MEDS ORDERED: MORPHINE 4 MG/1 ML INJ IV ONE (06:28)
--- NOTE | 2022-01-15 06:29 | Emergency Department Report ---
ED Chest Pain HPI - General Chief Complaint: Chest Pain Stated Complaint: CHEST PAIN Time Seen by Provider: 01/15/22 06:13 Source: patient, EMS Mode of arrival: Stretcher Limitations: Physical Limitation - Related Data Home Medications Medication Instructions Recorded Confirmed Last Taken Gabapentin 400 mg PO TID 07/07/15 12/24/21 06/07/15 Insulin Glargine [Lantus VIAL] 20 units SQ QHS 07/07/15 12/24/21 06/07/15 Acetaminophen [Tylenol] 650 mg PO Q6H PRN 12/24/21 12/24/21 Unknown Insulin NPH/Regular [Novolin 70/30] 100 unit SQ BIDDIAB 12/24/21 12/24/21 Unknown Lacosamide [Vimpat] 100 mg PO Q12HR 12/24/21 12/24/21 Unknown Loperamide HCl [Imodium A-D] 2 mg PO Q8HR PRN 12/24/21 12/24/21 Unknown Losartan [Cozaar] 100 mg PO QDAY 12/24/21 12/24/21 Unknown Melatonin [Melatonin 5MG CAP] 5 mg PO QHS 12/24/21 12/24/21 Unknown Garnett-3 Fatty Acids/Fish Oil [Fish 1 each PO QDAY 12/24/21 12/24/21 Unknown Oil] Rosuvastatin (Nf) [Crestor] 5 mg PO QHS 12/24/21 12/24/21 Unknown Venlafaxine HCl [Venlafaxine] 150 mg PO BID 12/24/21 12/24/21 Unknown Ziprasidone [Geodon] 40 mg PO BID 12/24/21 12/24/21 Unknown Previous Rx's Medication Instructions Recorded Last Taken Type Permethrin 5% [Acticin 5% CREAM] 1 applicatio TP ONCE #2 tube 10/27/18 Unknown Rx Aspirin EC [Halfprin EC] 81 mg PO QDAY #30 tablet 12/24/21 Unknown Rx AtorvaSTATin [Lipitor] 40 mg PO QHS #30 tablet 12/24/21 Unknown Rx FLUoxetine HCL [PROzac] 40 mg PO QDAY #30 cap 12/24/21 Unknown Rx Losartan [Cozaar] 50 mg PO QDAY #30 tablet 12/24/21 Unknown Rx Allergies Allergy/AdvReac Type Severity Reaction Status Date / Time ciprofloxacin HCl Allergy Rash Verified 12/14/21 05:02 [From Cipro] erythromycin base Allergy Rash Verified 12/14/21 05:02 [Erythromycin Base] lithium [[place]] Allergy Headache Verified 12/14/21 05:02 nitrofurantoin Allergy Hives Verified 12/14/21 05:02 macrocrystalline [From Macrodantin] sulfamethoxazole Allergy Hives Verified 12/14/21 05:02 [From Bactrim] trimethoprim [From Bactrim] Allergy Hives Verified 12/14/21 05:02 orange juice AdvReac MOUTH SORES Verified 12/14/21 05:02 pineapple AdvReac MOUTH SORES Verified 12/14/21 05:02 mushrooms Allergy Swelling Uncoded 12/14/21 05:02 Heart Score - HEART Score History: Slightly suspicious EKG: Normal Age: 45-65 Risk factors: 1-2 risk factors Troponin: < normal limit HEART Score: 2 - EKG Read Time Time EKG Completed: 02:47 EKG Read Time: 02:47 - Critical Actions Critical Actions: 0-3 pts:0.9-1.7%risk of adverse cardiac event.Candidate for discharge ED Review of Systems ROS: Stated complaint: CHEST PAIN Other details as noted in HPI Constitutional: denies: chills, fever Eyes: denies: eye pain, eye discharge, vision change ENT: denies: ear pain, throat pain Respiratory: denies: cough, shortness of breath, wheezing Cardiovascular: denies: chest pain, palpitations Endocrine: no symptoms reported Gastrointestinal: denies: abdominal pain, nausea, diarrhea Genitourinary: denies: urgency, dysuria, discharge Musculoskeletal: denies: back pain, joint swelling, arthralgia Skin: denies: rash, lesions Neurological: denies: headache, weakness, paresthesias Psychiatric: denies: anxiety, depression Hematological/Lymphatic: denies: easy bleeding, easy bruising ED Past Medical Hx - Past Medical History Previous Medical History?: Yes Hx Hypertension: Yes Hx Congestive Heart Failure: Yes Hx Diabetes: Yes Hx Seizures: Yes Hx Psychiatric Treatment: Yes ([place], [place], etc.) Hx Asthma: Yes Hx COPD: Yes Hx Dementia: Yes Additional medical history: HIGH CHOLESTEROL, paranoid schizophrenia, PTSD, psychosis. SLEEP APNEA - Surgical History Past Surgical History?: Yes Hx Cholecystectomy: Yes Hx Appendectomy: Yes Additional Surgical History: HYSTERECTOMY, knee surgery,TONSILLECTOMY - Social History Smoking Status: Never Smoker Substance Use Type: None - Medications Home Medications: Home Medications Medication Instructions Recorded Confirmed Last Taken Type Gabapentin 400 mg PO TID 07/07/15 12/24/21 06/07/15 History Insulin Glargine [Lantus VIAL] 20 units SQ QHS 07/07/15 12/24/21 06/07/15 History Permethrin 5% [Acticin 5% CREAM] 1 applicatio TP ONCE #2 tube 10/27/18 12/24/21 Unknown Rx Acetaminophen [Tylenol] 650 mg PO Q6H PRN 12/24/21 12/24/21 Unknown History Aspirin EC [Halfprin EC] 81 mg PO QDAY #30 tablet 12/24/21 Unknown Rx AtorvaSTATin [Lipitor] 40 mg PO QHS #30 tablet 12/24/21 Unknown Rx FLUoxetine HCL [PROzac] 40 mg PO QDAY #30 cap 12/24/21 Unknown Rx Insulin NPH/Regular [Novolin 70/30] 100 unit SQ BIDDIAB 12/24/21 12/24/21 Unknown History Lacosamide [Vimpat] 100 mg PO Q12HR 12/24/21 12/24/21 Unknown History Loperamide HCl [Imodium A-D] 2 mg PO Q8HR PRN 12/24/21 12/24/21 Unknown History Losartan [Cozaar] 50 mg PO QDAY #30 tablet 12/24/21 Unknown Rx Losartan [Cozaar] 100 mg PO QDAY 12/24/21 12/24/21 Unknown History Melatonin [Melatonin 5MG CAP] 5 mg PO QHS 12/24/21 12/24/21 Unknown History Garnett-3 Fatty Acids/Fish Oil [Fish 1 each PO QDAY 12/24/21 12/24/21 Unknown History Oil] Rosuvastatin (Nf) [Crestor] 5 mg PO QHS 12/24/21 12/24/21 Unknown History Venlafaxine HCl [Venlafaxine] 150 mg PO BID 12/24/21 12/24/21 Unknown History Ziprasidone [Geodon] 40 mg PO BID 12/24/21 12/24/21 Unknown History ED Physical Exam - General Limitations: Physical Limitation General appearance: alert, in no apparent distress - Head Head exam: Present: atraumatic, normocephalic - Eye Eye exam: Present: normal appearance - ENT ENT exam: Present: mucous membranes moist - Neck Neck exam: Present: normal inspection - Respiratory Respiratory exam: Present: normal lung sounds bilaterally. Absent: respiratory distress - Cardiovascular Cardiovascular Exam: Present: regular rate, normal rhythm. Absent: systolic murmur, diastolic murmur, rubs, gallop - GI/Abdominal GI/Abdominal exam: Present: soft, normal bowel sounds - Extremities Exam Extremities exam: Present: normal inspection - Back Exam Back exam: Present: normal inspection - Neurological Exam Neurological exam: Present: alert, oriented X3 - Psychiatric Psychiatric exam: Present: normal affect, normal mood - Skin Skin exam: Present: warm, dry, intact, normal color. Absent: rash ED Course Vital Signs 01/15/22 01/15/22 01/15/22 01:40 02:52 03:01 Temperature 98 F Pulse Rate 94 H 84 Respiratory 18 12 Rate Blood Pressure 110/60 130/62 O2 Sat by Pulse 96 99 99 Oximetry 01/15/22 01/15/22 01/15/22 03:15 03:31 03:45 Temperature Pulse Rate 82 80 86 Respiratory 11 L 11 L 13 Rate Blood Pressure 130/62 130/62 131/56 O2 Sat by Pulse 98 96 97 Oximetry 01/15/22 01/15/22 01/15/22 04:01 04:15 04:31 Temperature Pulse Rate 76 75 74 Respiratory 11 L 11 L 10 L Rate Blood Pressure 131/56 131/56 131/56 O2 Sat by Pulse 96 96 95 Oximetry 01/15/22 01/15/22 01/15/22 04:45 05:01 05:02 Temperature Pulse Rate 74 78 Respiratory 11 L 13 Rate Blood Pressure 102/66 102/66 O2 Sat by Pulse 97 96 100 Oximetry 01/15/22 01/15/22 01/15/22 05:15 05:31 05:45 Temperature Pulse Rate 81 74 72 Respiratory 8 L 10 L 10 L Rate Blood Pressure 102/66 102/66 93/57 O2 Sat by Pulse 85 97 97 Oximetry 01/15/22 06:01 Temperature Pulse Rate 72 Respiratory 10 L Rate Blood Pressure 93/57 O2 Sat by Pulse 97 Oximetry NIKO score - Niko Score Age > 65: (0) No Aspirin use within the Past 7 Days: (0) No 3 or more CAD Risk Factors: (1) Yes 2 or more Angina events in past 24 hrs: (0) No Known CAD with more than 50% Stenosis: (0) No Elevated Cardiac Markers: (0) No ST Deviation Greater than 0.5mm: (0) No NIKO Score: 1 ED Medical Decision Making - Lab Data Result diagrams: 01/15/22 02:30 01/15/22 02:30 - EKG Data -: EKG Interpreted by Nm EKG shows normal: sinus rhythm Rate: normal - EKG Data Interpretation: no acute changes - Radiology Data Radiology results: report reviewed, image reviewed - Medical Decision Making work up negative rpeat trop negative vss pain controlled Critical care attestation.: If time is entered above; I have spent that time in minutes in the direct care of this critically ill patient, excluding procedure time. ED Disposition Clinical Impression: Chest pain Disposition: 01 HOME / SELF CARE / HOMELESS Is pt being admited?: No Does the pt Need Aspirin: No Condition: Stable Instructions: Nonspecific Chest Pain, Adult
[2022-01-15 10:17] VITALS: BP 122/63
== END 2022-01-15 10:22 | disposition home or self-care (01) ==
LOC: ED 01:39
DX: R07.89 Other chest pain (principal); I11.0 Hypertensive heart disease with heart failure; I50.9 Heart failure, unspecified; E11.9 Type 2 diabetes mellitus without complications; J44.9 Chronic obstructive pulmonary disease, unspecified; E78.00 Pure hypercholesterolemia, unspecified; Z90.49 Acquired absence of other specified parts of digestive tract; Z90.710 Acquired absence of both cervix and uterus; Z79.899 Other long term (current) drug therapy; Z90.89 Acquired absence of other organs; Z88.1 Allergy status to other antibiotic agents; Z88.8 Allergy status to other drugs, medicaments and biological substances; Z79.4 Long term (current) use of insulin; Z79.82 Long term (current) use of aspirin
CPT/HCPCS: 36415; 71045; 80053; 84484; 85025; 93005; 96374; 99284; J2270

== ENCOUNTER 2022-01-23 04:01 | Emergency (ER) | payer MEDICARE ==
--- NOTE | 2022-01-23 05:01 | Cat Scan Report ---
CT CERVICAL SPINE WITHOUT CONTRAST INDICATION / CLINICAL INFORMATION: Fall. TECHNIQUE: Axial CT images were obtained through the cervical spine. Sagittal and coronal reformatted images were produced. All CT scans at this location are performed using CT dose reduction for ALARA by means of automated exposure control. COMPARISON: None available. FINDINGS: VERTEBRAE/ALIGNMENT: Normal vertebral body height and alignment without acute fracture or posttraumat ic subluxation. CRANIOCERVICAL JUNCTION:No significant abnormality. DISC SPACES/FACETS: Mild degenerative spondylosis at C6-C7 with disc height loss and a broad-based di sc osteophyte complex. There is at least mild left lateral recess and left neural foraminal narrowing at C6/C7. SPINAL CANAL: No evidence for high-grade spinal stenosis within limitations of noncontrast CT techniq ue. PARASPINAL SOFT TISSUES: No significant abnormality. LUNG APICES/ADDITIONAL FINDINGS: No significant abnormality of visualized lungs. IMPRESSION: 1. No fracture or other acute process. Signer Name: Howard Berkowitz MD Signed: 01/23/2022 4:57 AM Workstation Name: [email or web address]
--- NOTE | 2022-01-23 05:03 | Cat Scan Report ---
CT HEAD WITHOUT CONTRAST INDICATION / CLINICAL INFORMATION: Fall. TECHNIQUE: All CT scans at this location are performed using CT dose reduction for ALARA by means of automated exposure control. COMPARISON: None available. FINDINGS: CEREBRAL/CEREBELLAR PARENCHYMA: The cerebral and cerebellar hemispheres are normal for age. No CT rosina dence for an acute or subacute territorial infarct. HEMORRHAGE: No acute intra-axial hemorrhage or extra-axial fluid collection. MASS: No mass or mass effect. VENTRICULAR SYSTEM: Normal in size and morphology for the patient's age. ORBITS: No acute process. SOFT TISSUES/SKULL: No scalp hematoma or skull fracture. PARANASAL SINUSES/MASTOID AIR CELLS: Normal as visualized. IMPRESSION: 1. No acute intracranial process. Signer Name: Howard Berkowitz MD Signed: 01/23/2022 4:59 AM Workstation Name: [email or web address]
--- NOTE | 2022-01-23 05:16 | Emergency Department Report ---
ED Fall HPI - General Chief Complaint: Fall Stated Complaint: FALL/HEAD PAIN Time Seen by Provider: 01/23/22 04:15 Source: patient Mode of arrival: Stretcher - History of Present Illness Initial Comments: Patient is 61-year-old female brought from correction by EMS for evaluation of a fall out of bed. States she hit her head and also complains of pain in her left hip. - Related Data Home Medications Medication Instructions Recorded Confirmed Last Taken Gabapentin 400 mg PO TID 07/07/15 12/24/21 06/07/15 Insulin Glargine [Lantus VIAL] 20 units SQ QHS 07/07/15 12/24/21 06/07/15 Acetaminophen [Tylenol] 650 mg PO Q6H PRN 12/24/21 12/24/21 Unknown Insulin NPH/Regular [Novolin 70/30] 100 unit SQ BIDDIAB 12/24/21 12/24/21 Unknown Lacosamide [Vimpat] 100 mg PO Q12HR 12/24/21 12/24/21 Unknown Loperamide HCl [Imodium A-D] 2 mg PO Q8HR PRN 12/24/21 12/24/21 Unknown Losartan [Cozaar] 100 mg PO QDAY 12/24/21 12/24/21 Unknown Melatonin [Melatonin 5MG CAP] 5 mg PO QHS 12/24/21 12/24/21 Unknown Comer-3 Fatty Acids/Fish Oil [Fish 1 each PO QDAY 12/24/21 12/24/21 Unknown Oil] Rosuvastatin (Nf) [Crestor] 5 mg PO QHS 12/24/21 12/24/21 Unknown Venlafaxine HCl [Venlafaxine] 150 mg PO BID 12/24/21 12/24/21 Unknown Ziprasidone [Geodon] 40 mg PO BID 12/24/21 12/24/21 Unknown Previous Rx's Medication Instructions Recorded Last Taken Type Permethrin 5% [Acticin 5% CREAM] 1 applicatio TP ONCE #2 tube 10/27/18 Unknown Rx Aspirin EC [Halfprin EC] 81 mg PO QDAY #30 tablet 12/24/21 Unknown Rx AtorvaSTATin [Lipitor] 40 mg PO QHS #30 tablet 12/24/21 Unknown Rx FLUoxetine HCL [PROzac] 40 mg PO QDAY #30 cap 12/24/21 Unknown Rx Losartan [Cozaar] 50 mg PO QDAY #30 tablet 12/24/21 Unknown Rx Allergies Allergy/AdvReac Type Severity Reaction Status Date / Time ciprofloxacin HCl Allergy Rash Verified 12/14/21 05:02 [From Cipro] erythromycin base Allergy Rash Verified 12/14/21 05:02 [Erythromycin Base] lithium [[place]] Allergy Headache Verified 12/14/21 05:02 nitrofurantoin Allergy Hives Verified 12/14/21 05:02 macrocrystalline [From Macrodantin] sulfamethoxazole Allergy Hives Verified 12/14/21 05:02 [From Bactrim] trimethoprim [From Bactrim] Allergy Hives Verified 12/14/21 05:02 orange juice AdvReac MOUTH SORES Verified 12/14/21 05:02 pineapple AdvReac MOUTH SORES Verified 12/14/21 05:02 mushrooms Allergy Swelling Uncoded 12/14/21 05:02 ED Review of Systems ROS: Stated complaint: FALL/HEAD PAIN Other details as noted in HPI Constitutional: denies: chills, fever Respiratory: denies: cough, shortness of breath, wheezing Cardiovascular: denies: chest pain, palpitations Gastrointestinal: denies: abdominal pain, nausea, diarrhea Genitourinary: denies: urgency, dysuria, discharge Musculoskeletal: denies: back pain, joint swelling, arthralgia Skin: denies: rash, lesions Neurological: denies: headache, weakness, paresthesias Psychiatric: denies: anxiety, depression ED Past Medical Hx - Past Medical History Previous Medical History?: Yes Hx Hypertension: Yes Hx Congestive Heart Failure: Yes Hx Diabetes: Yes Hx Seizures: Yes Hx Psychiatric Treatment: Yes ([place], [place], etc.) Hx Asthma: Yes Hx COPD: Yes Hx Dementia: Yes Additional medical history: HIGH CHOLESTEROL, paranoid schizophrenia, PTSD, psy chosis. SLEEP APNEA - Surgical History Past Surgical History?: Yes Hx Cholecystectomy: Yes Hx Appendectomy: Yes Additional Surgical History: HYSTERECTOMY, knee surgery,TONSILLECTOMY - Social History Smoking Status: Never Smoker Substance Use Type: None - Medications Home Medications: Home Medications Medication Instructions Recorded Confirmed Last Taken Type Gabapentin 400 mg PO TID 07/07/15 12/24/21 06/07/15 History Insulin Glargine [Lantus VIAL] 20 units SQ QHS 07/07/15 12/24/21 06/07/15 History Permethrin 5% [Acticin 5% CREAM] 1 applicatio TP ONCE #2 tube 10/27/18 12/24/21 Unknown Rx Acetaminophen [Tylenol] 650 mg PO Q6H PRN 12/24/21 12/24/21 Unknown History Aspirin EC [Halfprin EC] 81 mg PO QDAY #30 tablet 12/24/21 Unknown Rx AtorvaSTATin [Lipitor] 40 mg PO QHS #30 tablet 12/24/21 Unknown Rx FLUoxetine HCL [PROzac] 40 mg PO QDAY #30 cap 12/24/21 Unknown Rx Insulin NPH/Regular [Novolin 70/30] 100 unit SQ BIDDIAB 12/24/21 12/24/21 Unkno wn History Lacosamide [Vimpat] 100 mg PO Q12HR 12/24/21 12/24/21 Unknown History Loperamide HCl [Imodium A-D] 2 mg PO Q8HR PRN 12/24/21 12/24/21 Unknown History Losartan [Cozaar] 50 mg PO QDAY #30 tablet 12/24/21 Unknown Rx Losartan [Cozaar] 100 mg PO QDAY 12/24/21 12/24/21 Unknown History Melatonin [Melatonin 5MG CAP] 5 mg PO QHS 12/24/21 12/24/21 Unknown History [place]-3 Fatty Acids/Fish Oil [Fish 1 each PO QDAY 12/24/21 12/24/21 Unknown History Oil] Rosuvastatin (Nf) [Crestor] 5 mg PO QHS 12/24/21 12/24/21 Unknown History Venlafaxine HCl [Venlafaxine] 150 mg PO BID 12/24/21 12/24/21 Unknown History Ziprasidone [Geodon] 40 mg PO BID 12/24/21 12/24/21 Unknown History ED Physical Exam - General Limitations: No Limitations General appearance: alert, in no apparent distress - Head Head exam: Present: atraumatic, normocephalic - Eye Eye exam: Present: normal appearance - Neck Neck exam: Present: normal inspection. Absent: tenderness - Respiratory Respiratory exam: Present: normal lung sounds bilaterally. Absent: respiratory distress - Cardiovascular Cardiovascular Exam: Present: regular rate, normal rhythm, normal heart sounds - GI/Abdominal GI/Abdominal exam: Present: soft. Absent: distended, tenderness - Rectal Rectal exam: Present: deferred - Neurological Exam Neurological exam: Present: alert, oriented X3 - Psychiatric Psychiatric exam: Present: normal affect, normal mood - Skin Skin exam: Present: warm, dry, intact, normal color ED Course Vital Signs 01/23/22 04:02 Temperature 98 F Pulse Rate 72 Respiratory 18 Rate Blood Pressure 132/88 O2 Sat by Pulse 98 Oximetry ED Medical Decision Making - Medical Decision Making No acute findings on CT head or C-spine. X-ray of left hip negative for acute bony injury. Patient stable for discharge back to nursing facility. Critical care attestation.: If time is entered above; I have spent that time in minutes in the direct care of this critically ill patient, excluding procedure time. ED Disposition Clinical Impression: Fall at correction Disposition: 01 HOME / SELF CARE / HOMELESS Is pt being admited?: No Condition: Stable Instructions: Fall Prevention in the Home, Adult
--- NOTE | 2022-01-23 05:17 | XRay Report ---
LEFT HIP 2 VIEW(S) INDICATION / CLINICAL INFORMATION: Fall COMPARISON: None available. FINDINGS: BONES / JOINT(S): No acute fracture or subluxation. No significant arthritis. SOFT TISSUES: No significant abnormality. ADDITIONAL FINDINGS: None. IMPRESSION: 1. No acute findings. Signer Name: Howard Berkowitz MD Signed: 01/23/2022 5:12 AM Workstation Name: [id number]
[2022-01-23 05:22] VITALS: BP 172/86
== END 2022-01-23 10:07 | disposition home or self-care (01) ==
LOC: ED 04:01
DX: R51.9 Headache, unspecified (principal); M25.552 Pain in left hip; I11.0 Hypertensive heart disease with heart failure; I50.9 Heart failure, unspecified; E11.9 Type 2 diabetes mellitus without complications; J44.9 Chronic obstructive pulmonary disease, unspecified; E78.00 Pure hypercholesterolemia, unspecified; G47.30 Sleep apnea, unspecified; Z90.49 Acquired absence of other specified parts of digestive tract; Z90.710 Acquired absence of both cervix and uterus; Z98.890 Other specified postprocedural states; Z88.1 Allergy status to other antibiotic agents; Z88.8 Allergy status to other drugs, medicaments and biological substances; Z88.2 Allergy status to sulfonamides; Z91.018 Allergy to other foods; Z79.4 Long term (current) use of insulin; Z79.82 Long term (current) use of aspirin; Z79.899 Other long term (current) drug therapy; W18.39XA Other fall on same level, initial encounter; Y93.89 Activity, other specified; Y92.89 Other specified places as the place of occurrence of the external cause; Y99.8 Other external cause status
CPT/HCPCS: 70450; 72125; 99284